=== PATIENT | female | born 1950 | race Caucasian/White ===

== ENCOUNTER 2020-06-11 07:39 | Emergency (ER) | payer MEDICARE, OTHER, SELFPAY ==
[2020-06-11 08:22] VITALS: BP 126/74; PULSE 94; RESP 16; TEMP 37.2; O2SAT 94; BMI 26.2
--- NOTE | 2020-06-11 08:48 | DI.RAD.S_ITS ---
PROCEDURE: XR CHEST 2V INDICATIONS: +COvid TECHNIQUE: 2 views of the chest were acquired. COMPARISON: None. FINDINGS: Surgical changes and devices: None. Lungs and pleura: Mild diffuse patchy opacities are present, technically age indeterminate in the absence of prior studies.. No pleural effusions or pneumothorax. Mediastinum: Mediastinal contours are normal. Heart size is normal. Bones and chest wall: No suspicious bony abnormalities. Soft tissues appear unremarkable. IMPRESSION: No definite focal consolidation. Diffuse mild patchy opacities which are technically age indeterminate without prior studies. This statistically represents scarring/atelectasis although technically cannot entirely exclude low-grade atypical/viral pneumonia. If there is persistent clinical diagnostic uncertainty, continued surveillance with short interval chest radiographs after treatment is recommended. Dictated by: Elmo Hayes M.D. on 06/11/2020 at 9:31 Approved by: Elmo Hayes M.D. on 06/11/2020 at 10:44
[2020-06-11 08:49] LABS: COVID19 -Nasal RAPID POSITIVE (Negative)
--- NOTE | 2020-06-11 09:09 | ED_ITS ---
HPI - URI/Sore Throat General Chief Complaint: Upper Respiratory Symptoms Stated Complaint: POSS COVID SYMPTOMS 4 X DAYS Time Seen by Provider: 06/11/20 07:57 Source: patient Mode of arrival: Ambulatory Limitations: no limitations History of Present Illness HPI Narrative: Patient is a 69-year-old female with no known medical history presenting today with her both of them are extremely fatigued. She says that she literally has no energy. She continues to maintain her taste and smell. She says they have not had any contact with COVID-19 they have not had any traveling. She has a nonproductive cough but is occasionally coughing up some phlegm. She denies any significant shortness of breath MD Complaint: cough Relieving factors: nothing Exacerbating factors: nothing Related Data Home Medications Medication Instructions Recorded Confirmed No Known Home Medications 07/24/19 07/24/19 Previous Rx's Medication Instructions Recorded amoxicillin 875 mg-potassium 1 tab PO BID #20 tab 07/24/19 clavulanate 125 mg tablet benzonatate 100 mg capsule 100 mg PO BID PRN #14 cap 07/24/19 Allergies Allergy/AdvReac Type Severity Reaction Status Date / Time No Known Drug Allergies Allergy Unverified 07/24/19 08:55 Review of Systems Review of Systems ROS Unobtainable: All systems reviewed & are unremarkable except as noted in HPI and below Constitutional Constitutional: Denies body ache(s), Denies chills, Reports fatigue, Denies fever(s) and Denies frequent falls Eyes Eyes: Denies change in vision, Denies eye discharge, Denies irritation and Denies loss of vision Cardiovascular Cardiovascular: Denies chest pain, Denies irregular heart rhythm, Denies lightheadedness, Denies palpitations, Denies dyspnea, Denies dyspnea on exertion and Denies orthopnea Respiratory Respiratory: Denies cough, Denies dyspnea, Denies dyspnea on exertion and Denies wheezing Gastrointestinal Gastrointestinal: Denies abdominal pain, Denies change in bowel habits, Denies diarrhea, Denies nausea and Denies vomiting Musculoskeletal Musculoskeletal: Denies back pain and Denies myalgias Integumentary/Breasts Skin/Breast: Denies pruritus, Denies erythema, Denies rash and Denies wounds Neurologic Neurologic: Denies frequent falls and Denies loss of vision Endocrine Endocrine: Reports fatigue and Denies palpitations Allergic/Immunologic Allergic/Immunologic: Denies wheezing Patient History Medical History Sinusitis Social History Smoking Status: Never smoker Smoking Status: Never smoker alcohol intake frequency: 0-2 drinks per day Substance Use Type: does not use Exam Initial Vital Signs Initial Vital Signs: Vital Signs Temperature 98.9 F 06/11/20 08:22 Pulse Rate 94 H 06/11/20 08:22 Respiratory Rate 16 06/11/20 08:22 Blood Pressure 126/74 06/11/20 08:22 Pulse Oximetry 94 06/11/20 08:22 GENERAL: Well-appearing, well-nourished and in no acute distress. HEENT: Head atraumatic,EOMI, pupils reactive, face symmetric, moist mucous membranes CARDIOVASCULAR: Regular rate and rhythm without murmurs, rubs or gallops. RESPIRATORY: Breath sounds equal bilaterally, no wheezes rales or rhonchi. ABDOMEN: Soft, nontender. Normoactive bowel sounds all 4 quadrants. No guarding or rebound. EXTREMITIES: Normal range of motion, no clubbing or edema. Neurovascularly intact NEUROLOGICAL: Alert and oriented x4.Normal gait and speech. Cranial nerves II through XII grossly intact. SKIN: Warm, dry, no laceration, no petechiae, no rashes or lesions. Course Orders Ordered: ED Orders 06/11/20 08:00 COVID19 Stat 06/11/20 08:48 XR chest 2V Stat Vital Signs Vital signs: Vital Signs - 8 hr 06/11/20 11:15 Pulse Rate 64 Respiratory Rate 16 Pulse Oximetry 95 MDM - URI/Sore Throat Lab Data Labs: Lab Results 06/11/20 Range/Units 08:00 COVID-19 PCR Positive H (Negative) Imaging Data Chest x-ray: Radiologist's Impression: PROCEDURE: XR CHEST 2V INDICATIONS: +COvid TECHNIQUE: 2 views of the chest were acquired. COMPARISON: None. FINDINGS: Surgical changes and devices: None. Lungs and pleura: Mild diffuse patchy opacities are present, technically age indeterminate in the absence of prior studies.. No pleural effusions or pneumothorax. Mediastinum: Mediastinal contours are normal. Heart size is normal. Bones and chest wall: No suspicious bony abnormalities. Soft tissues appear unremarkable. IMPRESSION: No definite focal consolidation. Diffuse mild patchy opacities which are technically age indeterminate without prior studies. This statistically represents scarring/atelectasis although technically cannot entirely exclude low-grade atypical/viral pneumonia. If there is persistent clinical diagnostic uncertainty, continued surveillance with short interval chest radiographs after treatment is recommended. Dictated by: Elmo Hayes M.D. on 06/11/2020 at 9:31 MDM Narrative Medical decision making narrative: Patient is overall feeling well oxygen level is 93-94%. She has no comorbidities. I have discussed with her to buy a home pulse oximeter and monitor her oxygen levels. At this time she understands and agrees. She will return if oxygen levels are decreasing, or her situation is overall D decreased seen. Discharge Plan Departure Patient Disposition: Home Clinical Impression: COVID-19 Instructions: DI for COVID-19 (Suspected or Confirmed ) Activity Restrictions/Additional Instructions: *You have been diagnosed with COVID-19 *What to do: Strongly recommend you purchase a home pulse oximeter to monitor your oxygen level. If your oxygen level starts decreasing lower than 88% need to return to the emergency department. Is also recommended that he start taking supplements such as vitamin D around 7860-9043 units daily *Continue to take medications as directed *Follow up with your primary care provider in 2-3 days *Return to ER if you should have increasing shortness of breath, chest pain, paul evan lips or any new, worsening or concerning symptoms CDC Guidelines for home isolation: - Stay away from others - Limit contact with pets and animals: If you must care for a pet, wash your hands before and after interacting with them - Wear a mask if you are sick - Cover your mouth and nose with a tissue when you cough or sneeze. Dispose of tissues in a lined trash can and wash your hands immediately with soap and water for at least 20 seconds. If soap and water are not available, clean hands with alcohol-based hand interior design assistant that contains at least 60% alcohol. - Clean your hands often with soap and water for at least 20 seconds - Avoid touching your eyes, nose and mouth with unwashed hands - Do not share dishes, drinking glasses, cups, eating utensils, towels, or bedding with other people in your home. After using these items, wash them thoroughly with soap and water or put in the fleece tier. - Clean high-touch surfaces in your isolation area (?sick room? and bathroom) every day; let a caregiver clean and disinfect high-touch surfaces in other areas of the home. Clean the area or item with soap and water or another detergent if it is dirty. Then, use a household disinfectant. Seek medical attention, but call first: - Seek medical care right away if your illness is worsening (for example, if you have difficulty breathing). - Call your doctor before going in: Before going to the doctor?s office or emergency room, call ahead and tell them your symptoms. They will tell you what to do. - If possible, put on a facemask before you enter the building. If you can?t put on a facemask, try to keep a safe distance from other people (at least 6 feet away). This will help protect the people in the office or waiting room. - Follow care instructions from your healthcare provider and local health department: Your local health authorities will give instructions on checking your symptoms and reporting information. Emergency warning signs for COVID-19: - Difficulty breathing or shortness of breath - Persistent pain or pressure in the chest - New confusion or inability to arouse - Bluish lips or face Prescriptions: No Action No Known Home Medications RF: 0 amoxicillin-pot clavulanate [Augmentin] 875-125 mg tablet 1 tab PO BID Qty: 20 RF: 0 benzonatate [Tessalon Perles] 100 mg capsule 100 mg PO BID PRN (Reason: cough) Qty: 14 RF: 0 Referrals: Theresa Smith MD [Primary Care Provider] -
[2020-06-11 11:15] VITALS: PULSE 64; RESP 16; O2SAT 95
== END 2020-06-11 11:32 | disposition home or self-care (01) ==
PROVIDERS: Emergency Provider Emergency Medicine; PCP Internal Medicine
DX: U07.1 COVID-19 (principal)
CPT/HCPCS: 71046; 87635; 99281; 99283

== ENCOUNTER 2020-06-13 08:38 | Emergency (ER) | payer MEDICARE, OTHER, SELFPAY ==
[2020-06-13 08:48] VITALS: BP 143/78; PULSE 86; RESP 18; TEMP 37.3; O2SAT 96; BMI 26.2
--- NOTE | 2020-06-13 09:12 | DI.RAD.S_ITS ---
PROCEDURE: XR CHEST 1V INDICATIONS: covid TECHNIQUE: One view of the chest was acquired. COMPARISON: [facility], CR, XR CHEST 2V, 06/11/2020, 9:08. FINDINGS: Surgical changes and devices: None. Lungs and pleura: Subtle opacity is seen in bilateral mid to lower lung uribe concerning for atypical pneumonia. No pleural effusions or pneumothorax. Mediastinum: Mediastinal contours appear normal. Heart size is normal. Bones and chest wall: No suspicious bony lesions. Overlying soft tissues appear unremarkable. IMPRESSION: Ill-defined subtle opacities seen scattered in bilateral mid to lower lung uribe concerning for atypical pneumonia. No pleural effusion or pneumothorax. Dictated by: Taco Owens M.D. on 06/13/2020 at 9:59 Approved by: Taco Owens M.D. on 06/13/2020 at 9:59
[2020-06-13 09:37] LABS: Add Manual Diff / Slide Review NO; Basophils Absolute Auto 0 /uL (0-100); Basophils Percent Auto 0.7 % (0-2); Eosinophils Absolute Auto 0 /uL (0-450); Eosinophils Percent Auto 0.1 % (2-4); Hematocrit 39.1 % (36-46); Hemoglobin 13.4 g/dL (12.0-16.0); Lymphocytes Absolute Auto 800 /uL (1100-4500); Lymphocytes Percent Auto 19.7 % (25-40); Mean Corpuscular HGB Conc 34.3 % (30-36); Mean Corpuscular Hemoglobin 31.7 PG (26-34); Mean Corpuscular Volume 92.4 fL (80-100); Monocytes Absolute Auto 400 /uL (0-900); Monocytes Percent Auto 10.8 % (3-14); Neutrophils Absolute Auto 2700 /uL (1500-7000); Neutrophils Percent Auto 68.7 % (50-75); Platelet Count 185 X10^3/uL (150-400); Red Blood Cell Count 4.23 X10^6/uL (4.0-5.2); Red Cell Distribution Width 13.4 % (11.6-14.8); White Blood Cell Count 3.9 X10^3/uL (4.5-11.0)
[2020-06-13 09:46] LABS: D Dimer 270 ng/mL (<230)
[2020-06-13 09:49] LABS: Lactate (Lactic Acid) 0.6 mmol/L (0.7-2.1)
[2020-06-13 09:52] LABS: Lactate Dehydrogenase 517 U/L (313-618)
[2020-06-13 09:55] LABS: Alanine Aminotransferase 25 IU/L (<35); Albumin 3.7 g/dL (3.5-5.0); Albumin Globulin Ratio 1.2 (1.0-2.8); Alkaline Phosphatase 94 U/L (38-126); Aspartate Aminotransferase 36 IU/L (14-36); BUN Creatinine Ratio 25.6 (6-22); Bilirubin Total 0.3 mg/dL (0.2-1.3); Blood Urea Nitrogen 20 mg/dL (7-17); C-Reactive Protein Quant 3.8 mg/dL (<1.0); Calcium 8.2 mg/dL (8.4-10.2); Carbon Dioxide 23 mmol/L (22-32); Chloride 103 mmol/L (98-107); Creatine Kinase 71 U/L (30-135); Estimated Glomerular Filt Rate > 60.0 mL/min (>60); Globulin 3.2 g/dL (1.7-4.1); Glucose 102 mg/dL (80-110); HEMOLYSIS < 15 (0-50); Potassium 3.6 mmol/L (3.4-5.1); Sodium 134 mmol/L (137-145); Total Protein 6.9 g/dL (6.3-8.2)
[2020-06-13 10:01] LABS: NT-proBNP (BNP-Adult 18+) 84 pg/mL (<125)
[2020-06-13 10:03] LABS: Troponin I < 0.012 ng/mL (0.01-0.034)
[2020-06-13 10:05] LABS: Procalcitonin 0.12 ng/mL (<0.5)
[2020-06-13 10:11] VITALS: BP 136/69; PULSE 74; RESP 18; O2SAT 94
[2020-06-13 10:26] LABS: Ferritin 201 ng/mL (11-264)
--- NOTE | 2020-06-13 10:50 | ED.SOB ---
HPI - SOB/Dyspnea General Chief Complaint: Shortness of Breath/Dyspnea Stated Complaint: cornoa virus positive Time Seen by Provider: 06/13/20 08:43 Source: patient Mode of arrival: Ambulatory Limitations: no limitations History of Present Illness HPI Narrative: Patient is 69-year-old female who was diagnosed with COVID 2 days ago. She states she and her both have actually been feeling better they been eating and drinking. This morning she felt like she was cold running through her body she felt crampy and nauseous and had an episode of diarrhea. She then checked her oxygen level and it was 90%. She has no difficulty breathing. She denies any chest pain she said she just does not feel well. She currently has an oxygen of 96 Related Data Previous Rx's Medication Instructions Recorded amoxicillin 875 mg-potassium 1 tab PO BID #20 tab 07/24/19 clavulanate 125 mg tablet benzonatate 100 mg capsule 100 mg PO BID PRN #14 cap 07/24/19 ondansetron 4 mg PO Q8H PRN #10 tab 06/13/20 Allergies Allergy/AdvReac Type Severity Reaction Status Date / Time No Known Drug Allergies Allergy Verified 06/13/20 08:47 Review of Systems Review of Systems ROS Unobtainable: All systems reviewed & are unremarkable except as noted in HPI and below Constitutional Constitutional: Reports chills, Denies fever(s), Denies lethargy and Denies weakness Eyes Eyes: Denies change in vision, Denies eye discharge, Denies irritation and Denies loss of vision ENT Ears, Nose, Mouth, and Throat: Denies change in voice, Denies neck pain and Denies sore throat Cardiovascular Cardiovascular: Denies chest pain, Denies irregular heart rhythm, Reports lightheadedness, Denies palpitations and Denies orthopnea Respiratory Respiratory: Reports as per HPI Gastrointestinal Gastrointestinal: Denies abdominal pain, Denies change in bowel habits, Denies diarrhea, Reports nausea and Reports vomiting Musculoskeletal Musculoskeletal: Denies back pain and Denies neck pain Integumentary/Breasts Skin/Breast: Denies pruritus, Denies erythema, Denies rash and Denies wounds Neurologic Neurologic: Denies loss of vision and Denies weakness Endocrine Endocrine: Denies palpitations Patient History Medical History Sinusitis Social History Smoking Status: Never smoker Smoking Status: Never smoker alcohol intake frequency: 0-2 drinks per day Substance Use Type: does not use Exam Initial Vital Signs Initial Vital Signs: Vital Signs Temperature 99.2 F 06/13/20 08:48 Pulse Rate 86 06/13/20 08:48 Respiratory Rate 18 06/13/20 08:48 Blood Pressure 143/78 H 06/13/20 08:48 Pulse Oximetry 96 06/13/20 08:48 GENERAL: [Well-appearing, well-nourished] and in [no acute] distress. HEENT: Head atraumatic,EOMI, pupils reactive, face symmetric, [moist] mucous membranes CARDIOVASCULAR: Regular rate and rhythm without murmurs, rubs or gallops. RESPIRATORY: Breath sounds equal bilaterally, no wheezes rales or rhonchi. ABDOMEN: Soft, nontender. Normoactive bowel sounds all 4 quadrants. No guarding or rebound. EXTREMITIES: Normal range of motion, no clubbing or edema. Neurovascularly intact NEUROLOGICAL: Alert and oriented x4.Normal gait and speech. SKIN: Warm, dry, no laceration, no petechiae, no rashes or lesions. Course Orders Ordered: Discontinued Medications Sodium Chloride (Normal Saline 0.9%) 500 mls @ 1,000 mls/hr IV BOLUS ONE Stop: 06/13/20 11:28 Last Infusion: 06/13/20 11:45 Dose: 0 mls/hr Documented by: Admin: 06/13/20 11:10 Dose: 1,000 mls/hr Documented by: JULISSA Ondansetron HCl (Ondansetron 4 Mg/2 Ml Inj) 4 mg IV NOW ONE Stop: 06/13/20 11:00 Last Admin: 06/13/20 11:09 Dose: 4 mg Documented by: JULISSA Vital Signs Vital signs: Vital Signs - 8 hr 06/13/20 12:09 Pulse Rate 68 Respiratory Rate 18 Blood Pressure 115/75 Pulse Oximetry 94 MDM - SOB/Dyspnea Lab Data Attestation: I reviewed the patient's lab results. Result diagrams: 06/13/20 09:20 06/13/20 09:20 Labs: Lab Results 12/31/20 12/31/20 12/31/20 Range/Units 09:20 09:20 09:20 WBC 3.9 L (4.5-11.0) X10^3/uL RBC 4.23 (4.0-5.2) X10^6/uL Hgb 13.4 (12.0-16.0) g/dL Hct 39.1 (36-46) % MCV 92.4 (80-100) fL MCH 31.7 (26-34) PG MCHC 34.3 (30-36) % RDW 13.4 (11.6-14.8) % Plt Count 185 (150-400) X10^3/uL Neut % (Auto) 68.7 (50-75) % Lymph % (Auto) 19.7 L (25-40) % Glades % (Auto) 10.8 (3-14) % Eos % (Auto) 0.1 L (2-4) % Baso % (Auto) 0.7 (0-2) % Neut # (Auto) 2700 (2347-7475) /uL Lymph # (Auto) 800 L (6480-1175) /uL Glades # (Auto) 400 (0-900) /uL Eos # (Auto) 0 (0-450) /uL Baso # (Auto) 0 (0-100) /uL D-Dimer 270 H (<230) ng/mL Sodium 134 L (137-145) mmol/L Potassium 3.6 (3.4-5.1) mmol/L Chloride 103 (98-107) mmol/L Carbon Dioxide 23 (22-32) mmol/L BUN 20 H (7-17) mg/dL Creatinine 0.78 (0.52-1.04) mg/dL Estimated GFR > 60.0 (>60) mL/min BUN/Creatinine Ratio 25.6 H (6-22) Glucose 102 (80-110) mg/dL Lactate (0.7-2.1) mmol/L Calcium 8.2 L (8.4-10.2) mg/dL Ferritin 201 (11-264) ng/mL Total Bilirubin 0.3 (0.2-1.3) mg/dL AST 36 (14-36) IU/L ALT 25 (<35) IU/L Alkaline Phosphatase 94 (38-126) U/L Lactate Dehydrogenase (313-618) U/L Total Creatine Kinase 71 (30-135) U/L CK-MB (CK-2) TNP CK-MB (CK-2) Rel Index TNP Troponin I < 0.012 (0.01-0.034) ng/mL C-Reactive Protein 3.8 H (<1.0) mg/dL NT-Pro-B Natriuret Pep (<125) pg/mL Total Protein 6.9 (6.3-8.2) g/dL Albumin 3.7 (3.5-5.0) g/dL Globulin 3.2 (1.7-4.1) g/dL Albumin/Globulin Ratio 1.2 (1.0-2.8) Procalcitonin (<0.5) ng/mL 06/13/20 06/13/20 06/13/20 Range/Units 09:20 09:20 09:20 WBC (4.5-11.0) X10^3/uL RBC (4.0-5.2) X10^6/uL Hgb (12.0-16.0) g/dL Hct (36-46) % MCV (80-100) fL MCH (26-34) PG MCHC (30-36) % RDW (11.6-14.8) % Plt Count (150-400) X10^3/uL Neut % (Auto) (50-75) % Lymph % (Auto) (25-40) % Glades % (Auto) (3-14) % Eos % (Auto) (2-4) % Baso % (Auto) (0-2) % Neut # (Auto) (6966-9443) /uL Lymph # (Auto) (3300-6329) /uL Glades # (Auto) (0-900) /uL Eos # (Auto) (0-450) /uL Baso # (Auto) (0-100) /uL D-Dimer (<230) ng/mL Sodium (137-145) mmol/L Potassium (3.4-5.1) mmol/L Chloride (98-107) mmol/L Carbon Dioxide (22-32) mmol/L BUN (7-17) mg/dL Creatinine (0.52-1.04) mg/dL Estimated GFR (>60) mL/min BUN/Creatinine Ratio (6-22) Glucose (80-110) mg/dL Lactate 0.6 L (0.7-2.1) mmol/L Calcium (8.4-10.2) mg/dL Ferritin (11-264) ng/mL Total Bilirubin (0.2-1.3) mg/dL AST (14-36) IU/L ALT (<35) IU/L Alkaline Phosphatase (38-126) U/L Lactate Dehydrogenase 517 (313-618) U/L Total Creatine Kinase (30-135) U/L CK-MB (CK-2) CK-MB (CK-2) Rel Index Troponin I (0.01-0.034) ng/mL C-Reactive Protein (<1.0) mg/dL NT-Pro-B Natriuret Pep 84 (<125) pg/mL Total Protein (6.3-8.2) g/dL Albumin (3.5-5.0) g/dL Globulin (1.7-4.1) g/dL Albumin/Globulin Ratio (1.0-2.8) Procalcitonin 0.12 (<0.5) ng/mL Imaging Data Chest x-ray: Radiologist's Impression: PROCEDURE: XR CHEST 1V INDICATIONS: covid TECHNIQUE: One view of the chest was acquired. COMPARISON: [facility], , XR CHEST 2V, 06/11/2020, 9:08. FINDINGS: Surgical changes and devices: None. Lungs and pleura: Subtle opacity is seen in bilateral mid to lower lung uribe concerning for atypical pneumonia. No pleural effusions or pneumothorax. Mediastinum: Mediastinal contours appear normal. Heart size is normal. Bones and chest wall: No suspicious bony lesions. Overlying soft tissues appear unremarkable. IMPRESSION: Ill-defined subtle opacities seen scattered in bilateral mid to lower lung uribe concerning for atypical pneumonia. No pleural effusion or pneumothorax. Dictated by: Taco Owens M.D. on 06/13/2020 at 9:59 Approved by: Taco Owens M.D. on 06/13/2020 at 9:59 [facility] Narrative Medical decision making narrative: Patient's oxygen remains well above 90% even with movement in the emergency department. She does have some chest x-ray findings but she had those a couple days ago. Her overall health does seem to be improving she feels better. She describes coldness going through her body at which point she checked her oxygen level briefly and it was 90% and she came to the emergency department. We discussed for a long time what to do for the oxygen level is low and the criteria to return to the emergency department. They are on day 7 or 8 in at it should be peaking soon and she should start feeling better. At this time without needing oxygen she does not meet admission criteria Discharge Plan Departure Patient Disposition: Home Clinical Impression: COVID-19 Instructions: DI for COVID-19 (Suspected or Confirmed ) Activity Restrictions/Additional Instructions: *You have been diagnosed with COVID-19 *What to do: At this time you do not require hospital admission. You do not require hospital admission typically in till your oxygen level decreases to 88%. There is also unfortunately no medication to make you feel better. Please continue to lay on her stomach if you are having any difficulty breathing. Increase food and fluid intake as tolerated. Rest. Take Tylenol as needed for fever *Continue to take medications as directed Tylenol 650 mg every 4-6 hours if needed for pain or fever Zofran 4 mg every 8 hours if needed for nausea or vomiting--> SENT TO [facility] IN [place] *Follow up with your primary care provider in 2-3 days *Return to ER if you should have increasing shortness of breath, oxygen levels 88% or less, decreased intake, passing out or any new, worsening or concerning symptoms Prescriptions: New ondansetron 4 mg tablet,disintegrating 4 mg PO Q8H PRN (Reason: nausea and vomiting) Qty: 10 RF: 0 No Action amoxicillin-pot clavulanate [Augmentin] 875-125 mg tablet 1 tab PO BID Qty: 20 RF: 0 benzonatate [Tessalon Perles] 100 mg capsule 100 mg PO BID PRN (Reason: cough) Qty: 14 RF: 0 Referrals: Theresa Smith MD [Primary Care Provider] -
[2020-06-13] MEDS: ONDANSETRON 4 MG/2 ML INJ IV (11:09)
[2020-06-13] MEDS: SODIUM CHLORIDE 0.9% 500 ML 1000 ML IV (11:10)
--- NOTE | 2020-06-13 12:08 | PC.NURSE ---
pt c/o 1 episode of diarrhea this AM which has since resolved
[2020-06-13 12:09] VITALS: BP 115/75; PULSE 68; RESP 18; O2SAT 94
== END 2020-06-13 12:10 | disposition home or self-care (01) ==
PROVIDERS: Emergency Provider Emergency Medicine; PCP Internal Medicine
DX: U07.1 COVID-19 (principal)
CPT/HCPCS: 71045; 80053; 82550; 82728; 83605; 83615; 83880; 84145; 84484; 85025; 85379; 86140; 99281; J2405

== ENCOUNTER 2020-06-16 12:54 | Inpatient (IN) | payer MEDICARE, OTHER, SELFPAY ==
[2020-06-16] VITALS (17 sets, daily range): BP systolic 113–134; BP diastolic 55–75; PULSE 67–90; RESP 16–26; TEMP 36.5–38.3; O2SAT 83–96; BMI 28.3
--- NOTE | 2020-06-16 13:27 | DI.RAD.S_ITS ---
PROCEDURE: XR CHEST 1V INDICATIONS: flu-like symptoms TECHNIQUE: One view of the chest was acquired. COMPARISON: [facility], CR, XR CHEST 1V, 06/13/2020, 9:30. FINDINGS: Surgical changes and devices: None. Lungs and pleura: Low lung volumes are noted. This causes a crowded appearance to the lung markings and limits evaluation. Patchy bilateral interstitial type infiltrates are seen. No large pneumothorax or large pleural effusions are seen. Mediastinum: Mediastinal contours appear normal. Heart size is normal. Bones and chest wall: No suspicious bony lesions. Age-appropriate bony degenerative changes are seen. Mild dextroconvex scoliotic curvature is seen. Overlying soft tissues appear unremarkable. IMPRESSION: Bilateral interstitial infiltrates are seen. Please consider COVID pneumonia. Dictated by: Fredis Mccarty M.D. on 06/16/2020 at 12:44 Approved by: Fredis Mccarty M.D. on 06/16/2020 at 12:45
[2020-06-16] MEDS: SODIUM CHLORIDE 0.9% 500 ML 1000 ML IV (13:30)
--- NOTE | 2020-06-16 13:31 | ED_ITS ---
HPI - SOB/Dyspnea <[facility] - Last Filed: 06/16/20 15:12> General Chief Complaint: Shortness of Breath/Dyspnea Stated Complaint: +Covid, sob Time Seen by Provider: 06/16/20 13:03 Source: patient Mode of arrival: Ambulatory Limitations: no limitations History of Present Illness HPI Narrative: This is a 69-year-old female, nonsmoker, who has no contributory medical history but tested positive for COVID on June 11, 2020 presents to ED with chief complain of short of breath and feeling fatigued. Patient denies chest pain, headache or diarrhea. Home O2 monitor as low as 78% and decided to return to ED with her who had tested positive as well. Patient has been nauseated and when she used Zofran it causes abdominal cramping discomfort. Patient was in ED on June 13 and discharged to home with Zofran at that time for nausea and abdominal cramping. Patient reports occasionally she has productive cough with thin mucus. Patient reports her symptoms started 9 days ago without known exposure to COVID with and loss of taste and smell, fatigue, and nonproductive cough. Patient denies recent travel. PCP Dr. Smith. Related Data Home Medications Medication Instructions Recorded Confirmed albuterol PRN 06/16/20 Allergies Allergy/AdvReac Type Severity Reaction Status Date / Time codeine Allergy Verified 06/16/20 13:33 Review of Systems <[facility] - Last Filed: 06/16/20 15:12> Review of Systems Narrative: General: See HPI HEENT: Denies sinus pain, ear pain, sore throat, difficulty swallowing, dizziness. Respiratory: See HPI Cardiovascular: Denies chest pain, palpitations, orthopnea, edema. Gastrointestinal: Denies (+) nausea, vomiting, (+) abdominal pain, diarrhea, constipation, melena. : Denies dysuria, frequency, incontinence, hematuria, urinary retention. Musculoskeletal: Denies weakness, joint pain or bony pain. Skin: Denies rash, skin lesions, or other. Neurologic: Denies weakness, headache, numbness, change in speech, confusion, seizures, incoordination. Psychiatric: No concerning psychosocial issues. 12-point review of systems is negative except for those stated above. Patient History <[facility] Last Filed: 06/16/20 15:12> Medical History Sinusitis Social History household members: spouse Smoking Status: Never smoker Smoking Status: Never smoker alcohol intake frequency: 0-2 drinks per day Substance Use Type: does not use Exam <DARINEL Corona - Last Filed: 06/16/20 15:12> Narrative Exam Narrative: GEN: Alert, oriented x 3, ill appearing and well-nourished, and moderate respiratory distress with mild tachypnea. Head: Normal cephalic, atraumatic. No scalp or temporal tenderness, palpable mass or rash. EYES: Pupils are equal, round, and reactive to light and accommodation. Extraocular muscles are intact bilaterally. There is no subconjunctival hemorrhage, exudate and sclera non-icteric. ENT: Hearing grossly intact. Nose without bleeding, purulent discharge or deviation. Mucous membrane dry, no mucosal lesion. Throat without erythema, tonsillar hypertrophy or exudate. Uvula in midline, airway patent. Neck: Trachea in midline. No JVD, non-tender without lymphadenopathy. No masses or thyroid megaly. Supple, non-tender and no meningeal signs. CARDIAC: Normal regular rate and rhythm without murmurs, gallops, or rubs. No chest wall tenderness. No peripheral edema, cyanosis or pallor. Capillary refill is less than 2 seconds. RESPIRATORY: Lungs mild wheezing in lower lobes. Frequent nonproductive cough. No rales, or rhonchi. No stridor, increase respiratory rate no accessary muscle used. Room oxygenation at 84% upon arrival. ABD: Abdomen soft, nontender and non-distended. No guarding or rebound tend erness to palpate. Bowel sounds are normal in all 4 quadrants. There is no palpable masses or organomegaly. EXT: Full painless ROM of all extremities with no loss of sensation, strength, effusion or edema. SKIN: Warm, dry. Pale Color for patient. No erythema, lesions or rash over visible areas. BACK: Nontender without deformity or crepitance. No flank tenderness. NEUROLOGICAL: Alert and oriented to place, time and person. Sensation and motor function intact bilaterally. No facial droops, dysphasia. PSYCHIATRIC: Good judgement and reason, without hallucinations, abnormal affect or abnormal behaviors during the examination. Patient is not suicidal. Initial Vital Signs Initial Vital Signs: Vital Signs Temperature 101.0 F H 06/16/20 13:07 Pulse Rate 87 06/16/20 13:07 Respiratory Rate 22 06/16/20 13:07 Blood Pressure 134/63 06/16/20 13:07 Pulse Oximetry 83 L 06/16/20 13:07 <Amaury Sterling DO - Last Filed: 06/16/20 17:23> Initial Vital Signs Initial Vital Signs: Vital Signs Temperature 101.0 F H 06/16/20 13:07 Pulse Rate 87 06/16/20 13:07 Respiratory Rate 22 06/16/20 13:07 Blood Pressure 134/63 06/16/20 13:07 Pulse Oximetry 83 L 06/16/20 13:07 Scores <DARINEL Corona - Last Filed: 06/16/20 15:12> GCS Isaac coma scale eye opening: Spontaneous Isaac coma scale verbal response: Orientated [place] coma scale motor response: Obey commands Isaac coma scale total score: 15 qSOFA Altered Mental Status (GCS <15): No Respiratory rate greater than/equal to 22: Yes Systolic blood pressure less than or equal to 100: No qSOFA Total: 1 0-1 Not High Risk 1-3 High risk Course <DARINEL Corona - Last Filed: 06/16/20 15:12> Orders Ordered: ED Orders 06/16/20 13:20 C-Reactive Protein Quant Stat Complete Blood Count AUTO DIFF Stat Comprehensive Metabolic Panel Stat D Dimer Stat Ferritin Stat Lactate (Lactic Acid) Stat Lactate Dehydrogenase Stat NT-proBNP (BNP-Adult 18+) Stat Procalcitonin Stat Respiratory Panel (Film Array) Stat Troponin & CK Cardiac Panel Stat 06/16/20 13:26 EKG-12 Lead Stat 06/16/20 13:27 XR chest 1V Stat 06/16/20 13:34 Arterial Blood Gas Stat 06/16/20 15:00 Blood Culture Stat Discontinued Medications Acetaminophen (Acetaminophen 325 Mg Tablet) 650 mg PO NOW ONE Stop: 06/16/20 13:32 Last Admin: 06/16/20 13:52 Dose: 650 mg Documented by: TIMOTHY Albuterol (Albuterol Hfa Mdi 60 Puff/8 Gm Inhaler) 2 puff INH NOW ONE Stop: 06/16/20 13:14 Last Admin: 06/16/20 13:59 Dose: 2 puff Documented by: ERNESTINA Dexamethasone (Dexamethasone 10 Mg/Ml Vial) 6 mg IV NOW ONE Stop: 06/16/20 13:30 Last Admin: 06/16/20 13:50 Dose: 6 mg Documented by: TIMOTHY Enoxaparin Sodium (Enoxaparin 40 Mg/0.4 Ml Syringe) 40 mg SUBCUT NOW ONE Stop: 06/16/20 15:02 Last Admin: 06/16/20 15:12 Dose: 40 mg Documented by: ALE Sodium Chloride (Normal Saline 0.9%) 500 mls @ 1,000 mls/hr IV BOLUS ONE Stop: 06/16/20 13:55 Last Infusion: 06/16/20 14:06 Dose: 0 mls/hr Documented by: Admin: 06/16/20 13:30 Dose: 1,000 mls/hr Documented by: TIMOTHY Remdesivir 200 mg/ Sodium (Chloride) 250 mls @ 250 mls/hr IV NOW ONE Stop: 06/16/20 13:30 Last Infusion: 06/16/20 15:19 Dose: 0 mls/hr Documented by: Admin: 06/16/20 13:52 Dose: 250 mls/hr Documented by: TIMOTHY Reevaluation(s) Reevaluation #1: Patient reports breathing and nausea improved and feeling much better at this time. Oxygen and albuterol inhaler helping with the breathing. O2 saturation on 4 L nasal cannula on 95% and respiration rate 26 per minute. Discussed pending admission to hospital due to COVID pneumonia and hypoxia with IV medications, o2 therapy and monitor. Time: 14:36 Consultations Consultation #1: Dr. Martinez kindly accepted the patient for admission for Covid 19, bilateral interstitial pneumonia, hypoxia for treatment with o2, IV steroid and Remdesivir medication. Time: 15:09 Vital Signs Vital signs: Vital Signs - 8 hr 06/16/20 13:07 06/16/20 13:10 06/16/20 13:30 Temperature 101.0 F H Pulse Rate 87 90 86 Respiratory Rate 22 23 Blood Pressure 134/63 134/63 Pulse Oximetry 83 L 92 94 06/16/20 13:52 06/16/20 13:59 06/16/20 14:00 Temperature 101 F H Pulse Rate 82 85 Respiratory Rate 20 21 Blood Pressure Pulse Oximetry 94 95 06/16/20 14:25 06/16/20 14:30 06/16/20 15:00 Temperature Pulse Rate 82 84 79 Respiratory Rate 20 23 20 Blood Pressure 121/59 L Pulse Oximetry 95 95 96 <Amaury Sterling, - Last Filed: 06/16/20 17:23> Orders Ordered: ED Orders 06/16/20 13:20 C-Reactive Protein Quant Stat Complete Blood Count AUTO DIFF Stat Comprehensive Metabolic Panel Stat D Dimer Stat Ferritin Stat Lactate (Lactic Acid) Stat Lactate Dehydrogenase Stat NT-proBNP (BNP-Adult 18+) Stat Procalcitonin Stat Respiratory Panel (Film Array) Stat Troponin & CK Cardiac Panel Stat 06/16/20 13:26 EKG-12 Lead Stat 06/16/20 13:27 XR chest 1V Stat 06/16/20 13:34 Arterial Blood Gas Stat 06/16/20 15:00 Blood Culture Stat Discontinued Medications Acetaminophen (Acetaminophen 325 Mg Tablet) 650 mg PO NOW ONE Stop: 06/16/20 13:32 Last Admin: 06/16/20 13:52 Dose: 650 mg Documented by: TIMOTHY Albuterol (Albuterol Hfa Mdi 60 Puff/8 Gm Inhaler) 2 puff INH NOW ONE Stop: 06/16/20 13:14 Last Admin: 06/16/20 13:59 Dose: 2 puff Documented by: ERNESTINA Dexamethasone (Dexamethasone 10 Mg/Ml Vial) 6 mg IV NOW ONE Stop: 06/16/20 13:30 Last Admin: 06/16/20 13:50 Dose: 6 mg Documented by: TIMOTHY Enoxaparin Sodium (Enoxaparin 40 Mg/0.4 Ml Syringe) 40 mg SUBCUT NOW ONE Stop: 06/16/20 15:02 Last Admin: 06/16/20 15:12 Dose: 40 mg Documented by: ALE Sodium Chloride (Normal Saline 0.9%) 500 mls @ 1,000 mls/hr IV BOLUS ONE Stop: 06/16/20 13:55 Last Infusion: 06/16/20 14:06 Dose: 0 mls/hr Documented by: LUISARTDELANEY Admin: 06/16/20 13:30 Dose: 1,000 mls/hr Documented by: TIMOTHY Remdesivir 200 mg/ Sodium (Chloride) 250 mls @ 250 mls/hr IV NOW ONE Stop: 06/16/20 13:30 Last Infusion: 06/16/20 15:19 Dose: 0 mls/hr Documented by: Admin: 06/16/20 13:52 Dose: 250 mls/hr Documented by: TIMOTHY Vital Signs Vital signs: Vital Signs - 8 hr 06/16/20 13:07 06/16/20 13:10 06/16/20 13:30 Temperature 101.0 F H Pulse Rate 87 90 86 Respiratory Rate 22 23 Blood Pressure 134/63 134/63 Pulse Oximetry 83 L 92 94 06/16/20 13:52 06/16/20 13:59 06/16/20 14:00 Temperature 101 F H Pulse Rate 82 85 Respiratory Rate 20 21 Blood Pressure Pulse Oximetry 94 95 06/16/20 14:25 06/16/20 14:30 06/16/20 15:00 Temperature Pulse Rate 82 84 79 Respiratory Rate 20 23 20 Blood Pressure 121/59 L Pulse Oximetry 95 95 96 MDM - SOB/Dyspnea <JOSELINE CoronaP - Last Filed: 06/16/20 15:12> Differential Diagnosis Differential diagnosis: Likely pulmonary embolism and other (Covid 19, pneumonia, ) Medical Records Attestation: I reviewed the patient's medical records. Lab Data Result diagrams: 06/16/20 13:20 06/16/20 13:20 Labs: Lab Results 06/16/20 06/16/20 06/16/20 Range/Units 13:20 13:20 13:20 WBC 6.4 (4.5-11.0) X10^3/uL RBC 4.33 (4.0-5.2) X10^6/uL Hgb 13.6 (12.0-16.0) g/dL Hct 39.6 (36-46) % MCV 91.5 (80-100) fL MCH 31.5 (26-34) PG MCHC 34.5 (30-36) % RDW 13.2 (11.6-14.8) % Plt Count 215 (150-400) X10^3/uL Neut % (Auto) 84.0 H (50-75) % Lymph % (Auto) 8.0 L (25-40) % [place] % (Auto) 7.8 (3-14) % Eos % (Auto) 0.0 L (2-4) % Baso % (Auto) 0.2 (0-2) % Neut # (Auto) 5400 (3273-3981) /uL Lymph # (Auto) 500 L (4912-3801) /uL [place] # (Auto) 500 (0-900) /uL Eos # (Auto) 0 (0-450) /uL Baso # (Auto) 0 (0-100) /uL D-Dimer 382 H (<230) ng/mL ABG pH (7.35-7.45) ABG pCO2 (35-45) mmHg ABG pO2 (80-100) mmHg ABG HCO3 (22-26) mmol/L ABG Total CO2 (21-31) mmol/L ABG O2 Saturation (95-100) % ABG Base Excess (-2-2) mmol/L FiO2 Sodium (137-145) mmol/L Potassium (3.4-5.1) mmol/L Chloride (98-107) mmol/L Carbon Dioxide (22-32) mmol/L BUN (7-17) mg/dL Creatinine (0.52-1.04) mg/dL Estimated GFR (>60) mL/min BUN/Creatinine Ratio (6-22) Glucose (80-110) mg/dL Lactate (0.7-2.1) mmol/L Calcium (8.4-10.2) mg/dL Ferritin (11-264) ng/mL Total Bilirubin (0.2-1.3) mg/dL AST (14-36) IU/L ALT (<35) IU/L Alkaline Phosphatase (38-126) U/L Lactate Dehydrogenase (313-618) U/L Total Creatine Kinase (30-135) U/L CK-MB (CK-2) CK-MB (CK-2) Rel Index Troponin I (0.01-0.034) ng/mL C-Reactive Protein (<1.0) mg/dL NT-Pro-B Natriuret Pep (<125) pg/mL Total Protein (6.3-8.2) g/dL Albumin (3.5-5.0) g/dL Globulin (1.7-4.1) g/dL Albumin/Globulin Ratio (1.0-2.8) Procalcitonin < 0.05 (<0.5) ng/mL Chlamy pneumoniae PCR (Not Detect) Adenovirus (PCR) (Not Detect) B.parapertussis DNA PCR (Not Detect) Coronavirus OC43 (PCR) (Not Detect) Coronavirus HKU1 (PCR) (Not Detect) Coronavirus 229E (PCR) (Not Detect) SARS-CoV-2 (PCR) (Not Detecte) Coronavirus NL63 (PCR) (Not Detect) Human Metapneumovir PCR (Not Detect) Influenza Type A (PCR) (Not Detect) Influenza Type B (PCR) (Not Detect) M. pneumoniae (PCR) (Not Detect) Parainfluenza 1 (PCR) (Not Detect) Parainfluenza 2 (PCR) (Not Detect) Parainfluenza 3 (PCR) (Not Detect) Parainfluenza 4 (PCR) (Not Detect) RSV (PCR) (Not Detect) Entero/Rhino (PCR) (Not Detect) 06/16/20 06/16/20 06/16/20 Range/Units 13:20 13:20 13:20 WBC (4.5-11.0) X10^3/uL RBC (4.0-5.2) X10^6/uL Hgb (12.0-16.0) g/dL Hct (36-46) % MCV (80-100) fL MCH (26-34) PG MCHC (30-36) % RDW (11.6-14.8) % Plt Count (150-400) X10^3/uL Neut % (Auto) (50-75) % Lymph % (Auto) (25-40) % [place] % (Auto) (3-14) % Eos % (Auto) (2-4) % Baso % (Auto) (0-2) % Neut # (Auto) (0163-2169) /uL Lymph # (Auto) (7786-3987) /uL [place] # (Auto) (0-900) /uL Eos # (Auto) (0-450) /uL Baso # (Auto) (0-100) /uL D-Dimer (<230) ng/mL ABG pH (7.35-7.45) ABG pCO2 (35-45) mmHg ABG pO2 (80-100) mmHg ABG HCO3 (22-26) mmol/L ABG Total CO2 (21-31) mmol/L ABG O2 Saturation (95-100) % ABG Base Excess (-2-2) mmol/L FiO2 Sodium 131 L (137-145) mmol/L Potassium 3.9 (3.4-5.1) mmol/L Chloride 101 (98-107) mmol/L Carbon Dioxide 26 (22-32) mmol/L BUN 18 H (7-17) mg/dL Creatinine 0.78 (0.52-1.04) mg/dL Estimated GFR > 60.0 (>60) mL/min BUN/Creatinine Ratio 23.1 H (6-22) Glucose 109 (80-110) mg/dL Lactate 0.9 (0.7-2.1) mmol/L Calcium 8.8 (8.4-10.2) mg/dL Ferritin 372 H (11-264) ng/mL Total Bilirubin 0.3 (0.2-1.3) mg/dL AST 49 H (14-36) IU/L ALT 33 (<35) IU/L Alkaline Phosphatase 89 (38-126) U/L Lactate Dehydrogenase 747 H D (313-618) U/L Total Creatine Kinase 83 (30-135) U/L CK-MB (CK-2) TNP CK-MB (CK-2) Rel Index TNP Troponin I < 0.012 (0.01-0.034) ng/mL C-Reactive Protein 5.4 H (<1.0) mg/dL NT-Pro-B Natriuret Pep 105 (<125) pg/mL Total Protein 7.1 (6.3-8.2) g/dL Albumin 3.7 (3.5-5.0) g/dL Globulin 3.4 (1.7-4.1) g/dL Albumin/Globulin Ratio 1.1 (1.0-2.8) Procalcitonin (<0.5) ng/mL Chlamy pneumoniae PCR Not detected (Not Detect) Adenovirus (PCR) Not detected (Not Detect) B.parapertussis DNA PCR Not detected (Not Detect) Coronavirus OC43 (PCR) Not detected (Not Detect) Coronavirus HKU1 (PCR) Not detected (Not Detect) Coronavirus 229E (PCR) Not detected (Not Detect) SARS-CoV-2 (PCR) Detected H (Not Detecte) Coronavirus NL63 (PCR) Not detected (Not Detect) Human Metapneumovir PCR Not detected (Not Detect) Influenza Type A (PCR) Not detected (Not Detect) Influenza Type B (PCR) Not detected (Not Detect) M. pneumoniae (PCR) Not detected (Not Detect) Parainfluenza 1 (PCR) Not detected (Not Detect) Parainfluenza 2 (PCR) Not detected (Not Detect) Parainfluenza 3 (PCR) Not detected (Not Detect) Parainfluenza 4 (PCR) Not detected (Not Detect) RSV (PCR) Not detected (Not Detect) Entero/Rhino (PCR) Not detected (Not Detect) 06/16/20 Range/Units 13:34 WBC (4.5-11.0) X10^3/uL RBC (4.0-5.2) X10^6/uL Hgb (12.0-16.0) g/dL Hct (36-46) % MCV (80-100) fL MCH (26-34) PG MCHC (30-36) % RDW (11.6-14.8) % Plt Count (150-400) X10^3/uL Neut % (Auto) (50-75) % Lymph % (Auto) (25-40) % [place] % (Auto) (3-14) % Eos % (Auto) (2-4) % Baso % (Auto) (0-2) % Neut # (Auto) (6183-4611) /uL Lymph # (Auto) (5839-3193) /uL [place] # (Auto) (0-900) /uL Eos # (Auto) (0-450) /uL Baso # (Auto) (0-100) /uL D-Dimer (<230) ng/mL ABG pH 7.49 H (7.35-7.45) ABG pCO2 27.5 L (35-45) mmHg ABG pO2 77 L (80-100) mmHg ABG HCO3 21 L (22-26) mmol/L ABG Total CO2 22 (21-31) mmol/L ABG O2 Saturation 97 (95-100) % ABG Base Excess -2.0 (-2-2) mmol/L FiO2 36 Sodium (137-145) mmol/L Potassium (3.4-5.1) mmol/L Chloride (98-107) mmol/L Carbon Dioxide (22-32) mmol/L BUN (7-17) mg/dL Creatinine (0.52-1.04) mg/dL Estimated GFR (>60) mL/min BUN/Creatinine Ratio (6-22) Glucose (80-110) mg/dL Lactate (0.7-2.1) mmol/L Calcium (8.4-10.2) mg/dL Ferritin (11-264) ng/mL Total Bilirubin (0.2-1.3) mg/dL AST (14-36) IU/L ALT (<35) IU/L Alkaline Phosphatase (38-126) U/L Lactate Dehydrogenase (313-618) U/L Total Creatine Kinase (30-135) U/L CK-MB (CK-2) CK-MB (CK-2) Rel Index Troponin I (0.01-0.034) ng/mL C-Reactive Protein (<1.0) mg/dL NT-Pro-B Natriuret Pep (<125) pg/mL Total Protein (6.3-8.2) g/dL Albumin (3.5-5.0) g/dL Globulin (1.7-4.1) g/dL Albumin/Globulin Ratio (1.0-2.8) Procalcitonin (<0.5) ng/mL Chlamy pneumoniae PCR (Not Detect) Adenovirus (PCR) (Not Detect) B.parapertussis DNA PCR (Not Detect) Coronavirus OC43 (PCR) (Not Detect) Coronavirus HKU1 (PCR) (Not Detect) Coronavirus 229E (PCR) (Not Detect) SARS-CoV-2 (PCR) (Not Detecte) Coronavirus NL63 (PCR) (Not Detect) Human Metapneumovir PCR (Not Detect) Influenza Type A (PCR) (Not Detect) Influenza Type B (PCR) (Not Detect) M. pneumoniae (PCR) (Not Detect) Parainfluenza 1 (PCR) (Not Detect) Parainfluenza 2 (PCR) (Not Detect) Parainfluenza 3 (PCR) (Not Detect) Parainfluenza 4 (PCR) (Not Detect) RSV (PCR) (Not Detect) Entero/Rhino (PCR) (Not Detect) ABG Data ABG results: pH 7.49 pCO2 27.5 pO2 77 HCO3 21 BE -2.0 Attestation: I personally reviewed and interpreted this ABG as follows: Interpretation: Resp alkalosis Imaging Data Chest x-ray: Radiologist's Impression: [address] [id number] ReportSigned Patient: Bonnie Vale MMR#: [id number]: 1950Acct:[id number]/Sex: 69 / FDate of Service: 06/16/20Loc: EDAccession Number: [id number] Procedure: XR chest 1V Ordering Provider: Andres Landry PROCEDURE: XR CHEST 1V INDICATIONS: flu-like symptoms TECHNIQUE: One view of the chest was acquired. COMPARISON: [facility], , XR CHEST 1V, 06/13/2020, 9:30. FINDINGS: Surgical changes and devices: None. Lungs and pleura: Low lung volumes are noted. This causes a crowded appearance to the lung markings and limits evaluation. Patchy bilateral interstitial type infiltrates are seen. No large pneumothorax or large pleural effusions are seen. Mediastinum: Mediastinal contours appear normal. Heart size is normal. Bones and chest wall: No suspicious bony lesions. Age-appropriate bony degenerative changes are seen. Mild dextroconvex scoliotic curvature is seen. Overlying soft tissues appear unremarkable. IMPRESSION: Bilateral interstitial infiltrates are seen. Please consider COVID pneumonia. Dictated by: Fredis Mccarty M.D. on 06/16/2020 at 12:44 Approved by: Fredis Mccarty M.D. on 06/16/2020 at 12:45 ECG Data Attestation: I personally reviewed and interpreted this ECG as follows: Prior ECG tracings: not available for review Interpretation: Normal sinus rhythm rate at 84. Left dominant 86. CT interval 175, QRS duration 77, QT/QTC 369/[address] changes MDM Narrative Medical decision making narrative: This 69-year-old female without significant contributory medical history presents to ED with dyspnea and hypoxia. Patient developed COVID symptoms on 06/07/2020 with loss of taste and smell, nonproductive cough, fatigue. Patient had positive COVID test on 06/11/2020 with her . Reports O2 said as low as 78 % in RA with extreme fatigue and short of breath and decided to come back to ED for an evaluation and treatment. Physical exam appreciated Lungs sounds mild wheezing in bilateral lobes and slight tachycardia of 26/minute without significant increased work of breathing. Patient was treated with O2 by nasal cannula 3-4 L to keep O2 said greater than 93%. Chest x-ray shows patchy Bilateral interstitial infiltrates. Labs shows no leukocytosis and normal lactate and procalcitonin. CRP elevated to 5.4 from 3.8 from 2 days ago. Negative D dimer for age adjusted of 382. Mild hyponatremia of 131. Ferritin level, AST, LDH slightly elevated and trending upwards from 2 days ago. Respiratory panel shows positive for COVID-19 but negative for other virus. ABG indicate respiratoy alkalosis. Patient reports feeling improved with IV hydration, dexamethasone 6 mg IV, Albuterol inhaler using a spacer and Remdesivir 200 mg IV. Patient kindly accepted by Dr. Martinez for continuation on the treatment. <Amaury Sterling, DO - Last Filed: 06/16/20 17:23> Lab Data Labs: Lab Results 06/16/20 06/16/20 06/16/20 Range/Units 13:20 13:20 13:20 WBC 6.4 (4.5-11.0) X10^3/uL RBC 4.33 (4.0-5.2) X10^6/uL Hgb 13.6 (12.0-16.0) g/dL Hct 39.6 (36-46) % MCV 91.5 (80-100) fL MCH 31.5 (26-34) PG MCHC 34.5 (30-36) % RDW 13.2 (11.6-14.8) % Plt Count 215 (150-400) X10^3/uL Neut % (Auto) 84.0 H (50-75) % Lymph % (Auto) 8.0 L (25-40) % [place] % (Auto) 7.8 (3-14) % Eos % (Auto) 0.0 L (2-4) % Baso % (Auto) 0.2 (0-2) % Neut # (Auto) 5400 (7891-5093) /uL Lymph # (Auto) 500 L (7010-3082) /uL [place] # (Auto) 500 (0-900) /uL Eos # (Auto) 0 (0-450) /uL Baso # (Auto) 0 (0-100) /uL D-Dimer 382 H (<230) ng/mL ABG pH (7.35-7.45) ABG pCO2 (35-45) mmHg ABG pO2 (80-100) mmHg ABG HCO3 (22-26) mmol/L ABG Total CO2 (21-31) mmol/L ABG O2 Saturation (95-100) % ABG Base Excess (-2-2) mmol/L FiO2 Sodium (137-145) mmol/L Potassium (3.4-5.1) mmol/L Chloride (98-107) mmol/L Carbon Dioxide (22-32) mmol/L BUN (7-17) mg/dL Creatinine (0.52-1.04) mg/dL Estimated GFR (>60) mL/min BUN/Creatinine Ratio (6-22) Glucose (80-110) mg/dL Lactate (0.7-2.1) mmol/L Calcium (8.4-10.2) mg/dL Ferritin (11-264) ng/mL Total Bilirubin (0.2-1.3) mg/dL AST (14-36) IU/L ALT (<35) IU/L Alkaline Phosphatase (38-126) U/L Lactate Dehydrogenase (313-618) U/L Total Creatine Kinase (30-135) U/L CK-MB (CK-2) CK-MB (CK-2) Rel Index Troponin I (0.01-0.034) ng/mL C-Reactive Protein (<1.0) mg/dL NT-Pro-B Natriuret Pep (<125) pg/mL Total Protein (6.3-8.2) g/dL Albumin (3.5-5.0) g/dL Globulin (1.7-4.1) g/dL Albumin/Globulin Ratio (1.0-2.8) Procalcitonin < 0.05 (<0.5) ng/mL Chlamy pneumoniae PCR (Not Detect) Adenovirus (PCR) (Not Detect) B.parapertussis DNA PCR (Not Detect) Coronavirus OC43 (PCR) (Not Detect) Coronavirus HKU1 (PCR) (Not Detect) Coronavirus 229E (PCR) (Not Detect) SARS-CoV-2 (PCR) (Not Detecte) Coronavirus NL63 (PCR) (Not Detect) Human Metapneumovir PCR (Not Detect) Influenza Type A (PCR) (Not Detect) Influenza Type B (PCR) (Not Detect) M. pneumoniae (PCR) (Not Detect) Parainfluenza 1 (PCR) (Not Detect) Parainfluenza 2 (PCR) (Not Detect) Parainfluenza 3 (PCR) (Not Detect) Parainfluenza 4 (PCR) (Not Detect) RSV (PCR) (Not Detect) Entero/Rhino (PCR) (Not Detect) 06/16/20 06/16/20 06/16/20 Range/Units 13:20 13:20 13:20 WBC (4.5-11.0) X10^3/uL RBC (4.0-5.2) X10^6/uL Hgb (12.0-16.0) g/dL Hct (36-46) % MCV (80-100) fL MCH (26-34) PG MCHC (30-36) % RDW (11.6-14.8) % Plt Count (150-400) X10^3/uL Neut % (Auto) (50-75) % Lymph % (Auto) (25-40) % [place] % (Auto) (3-14) % Eos % (Auto) (2-4) % Baso % (Auto) (0-2) % Neut # (Auto) (8166-2314) /uL Lymph # (Auto) (4692-0953) /uL [place] # (Auto) (0-900) /uL Eos # (Auto) (0-450) /uL Baso # (Auto) (0-100) /uL D-Dimer (<230) ng/mL ABG pH (7.35-7.45) ABG pCO2 (35-45) mmHg ABG pO2 (80-100) mmHg ABG HCO3 (22-26) mmol/L ABG Total CO2 (21-31) mmol/L ABG O2 Saturation (95-100) % ABG Base Excess (-2-2) mmol/L FiO2 Sodium 131 L (137-145) mmol/L Potassium 3.9 (3.4-5.1) mmol/L Chloride 101 (98-107) mmol/L Carbon Dioxide 26 (22-32) mmol/L BUN 18 H (7-17) mg/dL Creatinine 0.78 (0.52-1.04) mg/dL Estimated GFR > 60.0 (>60) mL/min BUN/Creatinine Ratio 23.1 H (6-22) Glucose 109 (80-110) mg/dL Lactate 0.9 (0.7-2.1) mmol/L Calcium 8.8 (8.4-10.2) mg/dL Ferritin 372 H (11-264) ng/mL Total Bilirubin 0.3 (0.2-1.3) mg/dL AST 49 H (14-36) IU/L ALT 33 (<35) IU/L Alkaline Phosphatase 89 (38-126) U/L Lactate Dehydrogenase 747 H D (313-618) U/L Total Creatine Kinase 83 (30-135) U/L CK-MB (CK-2) TNP CK-MB (CK-2) Rel Index TNP Troponin I < 0.012 (0.01-0.034) ng/mL C-Reactive Protein 5.4 H (<1.0) mg/dL NT-Pro-B Natriuret Pep 105 (<125) pg/mL Total Protein 7.1 (6.3-8.2) g/dL Albumin 3.7 (3.5-5.0) g/dL Globulin 3.4 (1.7-4.1) g/dL Albumin/Globulin Ratio 1.1 (1.0-2.8) Procalcitonin (<0.5) ng/mL Chlamy pneumoniae PCR Not detected (Not Detect) Adenovirus (PCR) Not detected (Not Detect) B.parapertussis DNA PCR Not detected (Not Detect) Coronavirus OC43 (PCR) Not detected (Not Detect) Coronavirus HKU1 (PCR) Not detected (Not Detect) Coronavirus 229E (PCR) Not detected (Not Detect) SARS-CoV-2 (PCR) Detected H (Not Detecte) Coronavirus NL63 (PCR) Not detected (Not Detect) Human Metapneumovir PCR Not detected (Not Detect) Influenza Type A (PCR) Not detected (Not Detect) Influenza Type B (PCR) Not detected (Not Detect) M. pneumoniae (PCR) Not detected (Not Detect) Parainfluenza 1 (PCR) Not detected (Not Detect) Parainfluenza 2 (PCR) Not detected (Not Detect) Parainfluenza 3 (PCR) Not detected (Not Detect) Parainfluenza 4 (PCR) Not detected (Not Detect) RSV (PCR) Not detected (Not Detect) Entero/Rhino (PCR) Not detected (Not Detect) 06/16/20 Range/Units 13:34 WBC (4.5-11.0) X10^3/uL RBC (4.0-5.2) X10^6/uL Hgb (12.0-16.0) g/dL Hct (36-46) % MCV (80-100) fL MCH (26-34) PG MCHC (30-36) % RDW (11.6-14.8) % Plt Count (150-400) X10^3/uL Neut % (Auto) (50-75) % Lymph % (Auto) (25-40) % [place] % (Auto) (3-14) % Eos % (Auto) (2-4) % Baso % (Auto) (0-2) % Neut # (Auto) (6507-7513) /uL Lymph # (Auto) (4976-5206) /uL [place] # (Auto) (0-900) /uL Eos # (Auto) (0-450) /uL Baso # (Auto) (0-100) /uL D-Dimer (<230) ng/mL ABG pH 7.49 H (7.35-7.45) ABG pCO2 27.5 L (35-45) mmHg ABG pO2 77 L (80-100) mmHg ABG HCO3 21 L (22-26) mmol/L ABG Total CO2 22 (21-31) mmol/L ABG O2 Saturation 97 (95-100) % ABG Base Excess -2.0 (-2-2) mmol/L FiO2 36 Sodium (137-145) mmol/L Potassium (3.4-5.1) mmol/L Chloride (98-107) mmol/L Carbon Dioxide (22-32) mmol/L BUN (7-17) mg/dL Creatinine (0.52-1.04) mg/dL Estimated GFR (>60) mL/min BUN/Creatinine Ratio (6-22) Glucose (80-110) mg/dL Lactate (0.7-2.1) mmol/L Calcium (8.4-10.2) mg/dL Ferritin (11-264) ng/mL Total Bilirubin (0.2-1.3) mg/dL AST (14-36) IU/L ALT (<35) IU/L Alkaline Phosphatase (38-126) U/L Lactate Dehydrogenase (313-618) U/L Total Creatine Kinase (30-135) U/L CK-MB (CK-2) CK-MB (CK-2) Rel Index Troponin I (0.01-0.034) ng/mL C-Reactive Protein (<1.0) mg/dL NT-Pro-B Natriuret Pep (<125) pg/mL Total Protein (6.3-8.2) g/dL Albumin (3.5-5.0) g/dL Globulin (1.7-4.1) g/dL Albumin/Globulin Ratio (1.0-2.8) Procalcitonin (<0.5) ng/mL Chlamy pneumoniae PCR (Not Detect) Adenovirus (PCR) (Not Detect) B.parapertussis DNA PCR (Not Detect) Coronavirus OC43 (PCR) (Not Detect) Coronavirus HKU1 (PCR) (Not Detect) Coronavirus 229E (PCR) (Not Detect) SARS-CoV-2 (PCR) (Not Detecte) Coronavirus NL63 (PCR) (Not Detect) Human Metapneumovir PCR (Not Detect) Influenza Type A (PCR) (Not Detect) Influenza Type B (PCR) (Not Detect) M. pneumoniae (PCR) (Not Detect) Parainfluenza 1 (PCR) (Not Detect) Parainfluenza 2 (PCR) (Not Detect) Parainfluenza 3 (PCR) (Not Detect) Parainfluenza 4 (PCR) (Not Detect) RSV (PCR) (Not Detect) Entero/Rhino (PCR) (Not Detect) Discharge Plan Departure Patient Disposition: Admitted As Inpatient Clinical Impression: COVID-19, Hypoxia Pneumonia Qualifiers: Pneumonia type: due to unspecified organism Laterality: bilateral Lung location: unspecified part of lung Qualified Code(s): J18.9 - Pneumonia, unspecified organism Admit Date/Time: 06/16/20 15:09 Admit Provider: Maren Martinez <Amaury Sterling DO - Last Filed: 06/16/20 17:23> Cosign ED Attending Cosignature Attestation: I was immediately available in the department for consultation. This documentation has been reviewed and I agree with assessment and plan. Supervised by Amaury Sterling DO
[2020-06-16 13:42] LABS: D Dimer 382 ng/mL (<230)
[2020-06-16 13:45] LABS: Fractionated Inspired Oxygen 36; HCO3 ABG 21 mmol/L (22-26); Oxygen Saturation ABG 97 % (95-100); PCO2 ABG 27.5 mmHg (35-45); PO2 ABG 77 mmHg (80-100); TCO2 ABG 22 mmol/L (21-31); pH ABG 7.49 (7.35-7.45)
[2020-06-16 13:46] LABS: Lactate (Lactic Acid) 0.9 mmol/L (0.7-2.1)
[2020-06-16 13:50] LABS: Alanine Aminotransferase 33 IU/L (<35); Albumin 3.7 g/dL (3.5-5.0); Albumin Globulin Ratio 1.1 (1.0-2.8); Alkaline Phosphatase 89 U/L (38-126); Aspartate Aminotransferase 49 IU/L (14-36); BUN Creatinine Ratio 23.1 (6-22); Bilirubin Total 0.3 mg/dL (0.2-1.3); Blood Urea Nitrogen 18 mg/dL (7-17); C-Reactive Protein Quant 5.4 mg/dL (<1.0); Calcium 8.8 mg/dL (8.4-10.2); Carbon Dioxide 26 mmol/L (22-32); Chloride 101 mmol/L (98-107); Creatine Kinase 83 U/L (30-135); Estimated Glomerular Filt Rate > 60.0 mL/min (>60); Globulin 3.4 g/dL (1.7-4.1); Glucose 109 mg/dL (80-110); HEMOLYSIS < 15 (0-50); Lactate Dehydrogenase 747 U/L (313-618); Potassium 3.9 mmol/L (3.4-5.1); Sodium 131 mmol/L (137-145); Total Protein 7.1 g/dL (6.3-8.2)
[2020-06-16] MEDS: DEXAMETHASONE 10 MG/ML VIAL 6 MG IV (13:50)
[2020-06-16 13:52] LABS: Add Manual Diff / Slide Review NO; Basophils Absolute Auto 0 /uL (0-100); Basophils Percent Auto 0.2 % (0-2); Eosinophils Absolute Auto 0 /uL (0-450); Hematocrit 39.6 % (36-46); Hemoglobin 13.6 g/dL (12.0-16.0); Lymphocytes Absolute Auto 500 /uL (1100-4500); Mean Corpuscular HGB Conc 34.5 % (30-36); Mean Corpuscular Hemoglobin 31.5 PG (26-34); Mean Corpuscular Volume 91.5 fL (80-100); Monocytes Absolute Auto 500 /uL (0-900); Monocytes Percent Auto 7.8 % (3-14); Neutrophils Absolute Auto 5400 /uL (1500-7000); Platelet Count 215 X10^3/uL (150-400); Red Blood Cell Count 4.33 X10^6/uL (4.0-5.2); Red Cell Distribution Width 13.2 % (11.6-14.8); White Blood Cell Count 6.4 X10^3/uL (4.5-11.0)
[2020-06-16] MEDS: REMDESIVIR 200 MG in SODIUM CHLORIDE 0.9% 210 ML 250 ML IV (13:52)
[2020-06-16] MEDS: ACETAMINOPHEN 325 MG TABLET 650 MG PO (13:52)
[2020-06-16] MEDS: ALBUTEROL HFA MDI 60 PUFF/8 GM INHALER INH (13:59)
[2020-06-16 14:00] LABS: NT-proBNP (BNP-Adult 18+) 105 pg/mL (<125); Troponin I < 0.012 ng/mL (0.01-0.034)
--- NOTE | 2020-06-16 14:07 | PC.NURSE ---
Patient diagnosed with covid on 06/11. Since that time states has steadily gotten worse and home pulse oximeter reading 74% on RA for last 2 days. Patient appears visibily short of breath, with difficulty communicating after walking short distance into room. Patient 83% O2 on RA, placed on 4L nasal canula and improved to 95%.
[2020-06-16 14:10] LABS: Procalcitonin < 0.05 ng/mL (<0.5)
[2020-06-16 14:22] LABS: Ferritin 372 ng/mL (11-264)
[2020-06-16 14:38] LABS: Adenovirus Not Detected (Not Detect)
[2020-06-16 14:39] LABS: Bordetella pertussis Not Detected (Not Detect); Chlamydophila pneumoniae Not Detected (Not Detect); Coronavirus 229E Not Detected (Not Detect); Coronavirus HKU1 Not Detected (Not Detect); Coronavirus NL 63 Not Detected (Not Detect); Coronavirus OC43 Not Detected (Not Detect); Human Metapneumovirus Not Detected (Not Detect); Human Rhinovirus/Enterovirus Not Detected (Not Detect); Influenza A Not Detected (Not Detect); Influenza B Not Detected (Not Detect); Mycoplasma pneumoniae Not Detected (Not Detect); Parainfluenza Virus 1 Not Detected (Not Detect); Parainfluenza Virus 2 Not Detected (Not Detect); Parainfluenza Virus 3 Not Detected (Not Detect); Parainfluenza Virus 4 Not Detected (Not Detect); Respiratory Syncytial Virus Not Detected (Not Detect); SARS- CoV-2 Detected (Not Detecte)
[2020-06-16] MEDS: ENOXAPARIN 40 MG/0.4 ML SYRINGE SUBCUT (15:12)
[2020-06-16] MEDS: HEPARIN 5,000 UNIT/ML VIAL 5000 UNIT SUBCUT (21:07)
--- NOTE | 2020-06-16 21:42 | PM.HP.1 ---
History of Present Illness History of Present Illness Date Patient Seen: 06/16/20 Time Patient Seen: 20:22 Chief complaint: +Covid, sob Narrative: Patient is a 69-year-old female [place], who presented to ED with a chief complain of short of breath and feeling fatigued, who has no contributory medical history but tested positive for COVID on June 11, 2020. Patient denies chest pain, leg pain, abnormal swelling of hands or feet, changes in vision, weakness to 1 side of the body or other, balance or coordination issues, urinary or bowel issues, headache or diarrhea. Home O2 monitor as low as 78% and decided to return to ED with her who had tested positive as well. Patient has been nauseated and when she used Zofran it causes abdominal cramping discomfort. Patient was in ED on June 13 and discharged to home with Zofran at that time for nausea and abdominal cramping. Patient reports occasionally she has productive cough with thin mucus, decreased appetite, Patient reports her symptoms started 9 days ago without known exposure to COVID with and loss of taste and smell, fatigue, and nonproductive cough. Patient denies recent travel. PCP Dr. Smith. Patient's vitals in ED temp 101?, BP 121/59, HR 76, RR 26, 93% on 4 L nasal cannula. ABG: PH 7.49, pCO2 27.5, PO2 77, HC03 21, total CO2 22, base excess-2.0, FiO2 36. CRP 5.4, lactate 747, procalcitonin negative proBNP negative, D-dimer 382, ferritin 372, troponin negative AST 49, sodium 131. Chest x-ray: Bilateral interstitial infiltrate are seen-COVID pneumonia. EKG:Normal sinus rhythm rate at 84. Left dominant 86. VA interval 175, QRS duration 77, QT/QTC 369/[address] changes. Upon admission to the floor patient is resting comfortably in bed continues to complain of shortness of breath but has improved since the emergency room, frequent coughing and a generalized tightness in her chest. Patient denies fever, body aches, chills chest pain, irregular heart rate, rapid heart rate, chest pain, change in vision, no facial or extremity weakness, numbness or tingling, or calf pain. Patient will be admitted for COVID pneumonia. Patient History Medical History Sinusitis Surgical History (Updated 06/16/20 @ 21:59 by LUIZ Britt) History of rotator cuff surgery Family & Social History Family History (Updated 06/16/20 @ 22:00 by LUIZ Britt) Mother Congestive heart failure Diabetes mellitus Father Stroke Social History: household members spouse Prior Living Arrangements Apartment/Condo Safety & Behavioral: Feels Safe in Current Yes Environment Been Physically Hurt or No Threatened By a Person Suicidal Ideation Description None Suicide Plan Description No Plan Tobacco & Substance use: Smoking Status Never smoker alcohol intake frequency 0-2 drinks per day Substance Use Type does not use Meds Home Medications and Allergies Home Medications Medication Instructions Recorded Confirmed Type albuterol 1 puff INHALATION PRN PRN 06/16/20 06/16/20 History Allergies Allergy/AdvReac Type Severity Reaction Status Date / Time codeine Allergy Verified 06/16/20 13:33 Review of Systems Review of Systems ROS: Yes All systems reviewed with the patient and are negative except as otherwise documented Constitutional Constitutional: Reports system reviewed and no additional complaints, except as documented, Reports lethargy and Reports poor appetite Eyes Eyes: Reports system reviewed and no additional complaints, except as documented ENT Ears, Nose, Mouth, and Throat: Yes epistaxis (Patient upon waking she blows her nose she has epistaxis) Cardiovascular Cardiovascular: Reports dyspnea, Reports dyspnea on exertion and Reports orthopnea Respiratory Respiratory: Reports chest congestion, Reports cough, Reports dyspnea and Reports dyspnea on exertion Gastrointestinal Gastrointestinal: Reports system reviewed and no additional complaints, except as documented Genitourinary Genitourinary: Reports system reviewed and no additional complaints, except as documented Musculoskeletal Musculoskeletal: Reports system reviewed and no additional complaints, except as documented Integumentary/Breasts Skin/Breast: Reports system reviewed and no additional complaints, except as documented Neurologic Neurologic: Reports system reviewed and no additional complaints, except as documented Psychiatric Psychiatric: Reports system reviewed and no additional complaints, except as documented Endocrine Endocrine: Reports system reviewed and no additional complaints, except as documented Hematologic/Lymphatic Hematologic/Lymphatic: Reports system reviewed and no additional complaints, except as documented Allergic/Immunologic Allergic/Immunologic: Reports system reviewed and no additional complaints, except as documented Exam Vital Signs (past 8 hours): - 06/16/20 13:52 06/16/20 13:59 06/16/20 14:00 Temperature 101 F H Pulse Rate 82 85 Respiratory Rate 20 21 Blood Pressure Pulse Oximetry 94 95 06/16/20 14:25 06/16/20 14:30 06/16/20 15:00 Temperature Pulse Rate 82 84 79 Respiratory Rate 20 23 20 Blood Pressure 121/59 L Pulse Oximetry 95 95 96 06/16/20 15:30 06/16/20 16:00 06/16/20 16:39 Temperature Pulse Rate 77 77 76 Respiratory Rate 19 24 26 H Blood Pressure Pulse Oximetry 96 95 93 06/16/20 16:46 06/16/20 19:58 Temperature 98.8 F 98.2 F Pulse Rate 75 67 Respiratory Rate 19 Blood Pressure 130/69 113/55 L Pulse Oximetry 94 Oxygen Delivery Method Nasal Cannula Oxygen Flow Rate 4 Narrative Exam Narrative: General: Patient is a well-developed delightful female, well-nourished in no distress at this time, but has increased work of breathing. Patient unable to complete full sentences without repeated breaths. HEENT: Normocephalic, atraumatic, extraocular muscles intact, oral pharynx is clear and mucous membranes are dry, lips are dry and cracked. Neck is supple and symmetric, trachea is midline, no adenopathy, no thyroid enlargement, nontender, no masses palpated. Negative for JVD Chest: Normal AP diameter and contour without kyphoscoliosis, no nasal flaring, retractions, or tachypneic labored Lungs: Bilaterally tight decreased breath sounds greatest greater in the right over left mild occasional wheezing in bases, frequent nonproductive cough. Cardio: S1 & S2 with regular rate and rhythm without murmur, rubs, or gallops, no carotid bruit, no cardiac pulsations present. Abdomen: Soft nontender, negative for organomegaly, or masses. Bowel sounds are present in all 4 quadrants without guarding or rebound, no CVA tenderness. Musculoskeletal: Muscle strength and tone are equal within normal limits, no deformity, patient has mild bilateral hand and bilateral foot edema nonpitting. Full range of motion intact radial and pedal pulses are normal. Skin: Warm dry and intact without rashes, ulcerations or petechiae. Neuro: Alert and orientated x3, strength is +5/5 in all extremities, sensation to touch intact, no gross deficits noted of cranial nerves. Psych: Patient has a well-kept appearance, appropriate affect, mental status attitude thought context and judgment are appropriate for age. Objective Labs Result Diagrams: 06/16/20 13:20 06/16/20 13:20 Labs: Laboratory Results - last 24 hr 06/16/20 06/16/20 06/16/20 13:20 13:20 13:20 WBC 6.4 RBC 4.33 Hgb 13.6 Hct 39.6 MCV 91.5 MCH 31.5 MCHC 34.5 RDW 13.2 Plt Count 215 Neut % (Auto) 84.0 H Lymph % (Auto) 8.0 L [place] % (Auto) 7.8 Eos % (Auto) 0.0 L Baso % (Auto) 0.2 Neut # (Auto) 5400 Lymph # (Auto) 500 L [place] # (Auto) 500 Eos # (Auto) 0 Baso # (Auto) 0 D-Dimer 382 H ABG pH ABG pCO2 ABG pO2 ABG HCO3 ABG Total CO2 ABG O2 Saturation ABG Base Excess FiO2 Sodium Potassium Chloride Carbon Dioxide BUN Creatinine Estimated GFR BUN/Creatinine Ratio Glucose Lactate Calcium Ferritin Total Bilirubin AST ALT Alkaline Phosphatase Lactate Dehydrogenase Total Creatine Kinase CK-MB (CK-2) CK-MB (CK-2) Rel Index Troponin I C-Reactive Protein NT-Pro-B Natriuret Pep Total Protein Albumin Globulin Albumin/Globulin Ratio Procalcitonin < 0.05 Chlamy pneumoniae PCR Adenovirus (PCR) B.parapertussis DNA PCR Coronavirus OC43 (PCR) Coronavirus HKU1 (PCR) Coronavirus 229E (PCR) SARS-CoV-2 (PCR) Coronavirus NL63 (PCR) Human Metapneumovir PCR Influenza Type A (PCR) Influenza Type B (PCR) M. pneumoniae (PCR) Parainfluenza 1 (PCR) Parainfluenza 2 (PCR) Parainfluenza 3 (PCR) Parainfluenza 4 (PCR) RSV (PCR) Entero/Rhino (PCR) 06/16/20 06/16/20 06/16/20 13:20 13:20 13:20 WBC RBC Hgb Hct MCV MCH MCHC RDW Plt Count Neut % (Auto) Lymph % (Auto) [place] % (Auto) Eos % (Auto) Baso % (Auto) Neut # (Auto) Lymph # (Auto) [place] # (Auto) Eos # (Auto) Baso # (Auto) D-Dimer ABG pH ABG pCO2 ABG pO2 ABG HCO3 ABG Total CO2 ABG O2 Saturation ABG Base Excess FiO2 Sodium 131 L Potassium 3.9 Chloride 101 Carbon Dioxide 26 BUN 18 H Creatinine 0.78 Estimated GFR > 60.0 BUN/Creatinine Ratio 23.1 H Glucose 109 Lactate 0.9 Calcium 8.8 Ferritin 372 H Total Bilirubin 0.3 AST 49 H ALT 33 Alkaline Phosphatase 89 Lactate Dehydrogenase 747 H D Total Creatine Kinase 83 CK-MB (CK-2) TNP CK-MB (CK-2) Rel Index TNP Troponin I < 0.012 C-Reactive Protein 5.4 H NT-Pro-B Natriuret Pep 105 Total Protein 7.1 Albumin 3.7 Globulin 3.4 Albumin/Globulin Ratio 1.1 Procalcitonin Chlamy pneumoniae PCR Not detected Adenovirus (PCR) Not detected B.parapertussis DNA PCR Not detected Coronavirus OC43 (PCR) Not detected Coronavirus HKU1 (PCR) Not detected Coronavirus 229E (PCR) Not detected SARS-CoV-2 (PCR) Detected H Coronavirus NL63 (PCR) Not detected Human Metapneumovir PCR Not detected Influenza Type A (PCR) Not detected Influenza Type B (PCR) Not detected M. pneumoniae (PCR) Not detected Parainfluenza 1 (PCR) Not detected Parainfluenza 2 (PCR) Not detected Parainfluenza 3 (PCR) Not detected Parainfluenza 4 (PCR) Not detected RSV (PCR) Not detected Entero/Rhino (PCR) Not detected 06/16/20 13:34 WBC RBC Hgb Hct MCV MCH MCHC RDW Plt Count Neut % (Auto) Lymph % (Auto) [place] % (Auto) Eos % (Auto) Baso % (Auto) Neut # (Auto) Lymph # (Auto) [place] # (Auto) Eos # (Auto) Baso # (Auto) D-Dimer ABG pH 7.49 H ABG pCO2 27.5 L ABG pO2 77 L ABG HCO3 21 L ABG Total CO2 22 ABG O2 Saturation 97 ABG Base Excess -2.0 FiO2 36 Sodium Potassium Chloride Carbon Dioxide BUN Creatinine Estimated GFR BUN/Creatinine Ratio Glucose Lactate Calcium Ferritin Total Bilirubin AST ALT Alkaline Phosphatase Lactate Dehydrogenase Total Creatine Kinase CK-MB (CK-2) CK-MB (CK-2) Rel Index Troponin I C-Reactive Protein NT-Pro-B Natriuret Pep Total Protein Albumin Globulin Albumin/Globulin Ratio Procalcitonin Chlamy pneumoniae PCR Adenovirus (PCR) B.parapertussis DNA PCR Coronavirus OC43 (PCR) Coronavirus HKU1 (PCR) Coronavirus 229E (PCR) SARS-CoV-2 (PCR) Coronavirus NL63 (PCR) Human Metapneumovir PCR Influenza Type A (PCR) Influenza Type B (PCR) M. pneumoniae (PCR) Parainfluenza 1 (PCR) Parainfluenza 2 (PCR) Parainfluenza 3 (PCR) Parainfluenza 4 (PCR) RSV (PCR) Entero/Rhino (PCR) Assessment & Plan Assessment & Plan narrative: This patient requires acute care inpatient hospital management for COVID pneumonia. After failing outpatient management of SARS-CoV-2 infection diagnosed on 06/07/2020. Patients spouse was also admitted for positive COVID pneumonia and is in the room next to her. The patient is at much higher risk for medical and surgical complications because of age of 69 years. These factors increase the difficulty and complexity of medical interventions and increases the chances of poor outcomes such as morbidity and mortality, as well as complications such as acute respiratory distress, acute NJ, ischemic stroke, PE, DVT. The patient's COVID pneumonia will impact her ability to oxygenate without the assistance of oxygen as evidenced by 94% O2 saturation on 4 L of oxygen. 1. Acute COVID pneumonia, acute, present on admission SARS-CoV-2 -Diagnosis approximately 9 days ago, patient is not in acute respiratory failure or hypoxic. -vitals in ED temp 101?, BP 121/59, HR 76, RR 26, 93% on 4 L nasal cannula. ABG: PH 7.49, pCO2 27.5, PO2 77, HC03 21, total CO2 22, base excess-2.0, FiO2 36. CRP 5.4, lactate 747, procalcitonin negative proBNP negative, D-dimer 382, ferritin 372, troponin negative AST 49, sodium 131. Chest x-ray: Bilateral interstitial infiltrate are seen-COVID pneumonia. EKG:Normal sinus rhythm rate at 84. Left dominant 86. VA interval 175, QRS duration 77, QT/QTC 369/[address] changes. -In ED: Respiratory panel- negative, positive COVID test on 06/07/2020, QSOFA score 1, blood cultures pending, patient given 6 mg of dexamethasone, albuterol inhaler 2 puffs, acetaminophen 250 mg, enoxaparin 40 mg, normal saline 1000 cc, remdesivir 200 mg. -patient to be monitored on [facility] medicine, vital signs q.4 hours, intake and output monitored Q shift, weight measure daily, diet: Regular -Supplemental NC -maintain SaO2 greater than 90%, check peak flow expiratory flow q.day 1-2 days. -vital signs on admission: Temp 97.7?, BP 127/75, HR 70, RR 18, O2 sat 92% on 4 L nasal cannula -ABG/Resp Consult-O2 saturation drops below 90%, Max 6L/Min NC -medications ordered: Remdesivir 100 mg p.o. q.day & dexamethasone 6 mg QD x 10 days or until D/C per coronavirus infectious disease is modify May 2020 treatment guidelines per up-to-date. Consider proning if patient becomes hypoxic -On admit SOFA score of 3, SAPS Score of 35 -albuterol HFA inhaler 2 puffs every 4-6 hours as needed cough or shortness of breath, LMW heparin 5000 units q.day -labs ordered PT/PTT every other day, troponin 48 hour repeat, D-dimer and lactate repeat in a.m., CBC and CMP daily, sputum culture and Gram stain, hep B and C, HIV per guidelines -avoiding nebulizer aerosol treatments, if signs and symptoms are worsening order chest x-ray and echo -monitor patient for acute NJ, ischemic stroke, PE, DVT, venous thrombosis, hyperglycemia an increased risk of bacterial infections, fungal and strongyloides -consults ordered physical therapy, occupational therapy, speech therapy, dietary, respiratory therapy. -prevention vaccine: Recommend yearly flu vaccine, shingles, pneumonia, COVID vaccine when it is available. Code status: Full code Surrogate/plan of care: Spouse: Miles COOPER PCR: Positive VTE prophylaxis: LMW heparin 5000 units Scores GCS [place] coma scale eye opening: Spontaneous [place] coma scale verbal response: Orientated [place] coma scale motor response: Obey commands [place] coma scale total score: 15 SOFA PaO2/FIO2: < 220 mmHg Platelets: >= 150 Bilirubin: < 1.2 mg/dL Hypotension: MAP >= 70 mmHg [place] Coma Scale: 15 Renal: < 1.2 mg/dL SOFA Score: 3 Wells' Criteria for PE Clinical signs and symptoms of DVT: No PE is #1 Dx or equally likely: No Heart rate > 100: No Immobilization at least 3 days or surg in previous 4 weeks: No History of PE or DVT: No Hemoptysis: No Malignancy w/Treatment within 6 months or palliative: No Wells' PE Score total: 0
[2020-06-16] MEDS: ALBUTEROL HFA PREPACK 1 BOX MISC (22:03)
[2020-06-17] VITALS (21 sets, daily range): BP systolic 103–136; BP diastolic 56–71; PULSE 62–86; RESP 14–24; TEMP 36.1–37.2; O2SAT 82–96
--- NOTE | 2020-06-17 01:13 | PC.NURSE ---
Addendum entered by Sierra Segura R.N. 06/17/20 05:35: Notified DARINEL Jara of patient change. Draw morning ABGs and RT to start on non rebreather mask Addendum entered by Sierra Segura R.N. 06/17/20 05:22: Pt upto use restroom. Became short of breath, nauseous, and coughing. O2 sats decreased to 82%. O2 turned upto 6L O2 NC and O2 sats increased to 86-87%. Albuteral puffs given. Reglan administered. Pt reports feeling slightly better. O2 sats continue to run between 85-88%. O2 increased to 9L by RT. Encouraged pt to lye in prone position. Pt now agreeable, had refused in the past. O2 sats now at 92% on 9L o2. [facility] Original Note: Pt alert and oriented x4. Denies any pain. Reports shortness of breath with coughing. Instructed patient to use call light, pt agrees. Sating at 92% on 4L NC without issues. Pt denies complaints. [facility]
[2020-06-17] MEDS: METOCLOPRAMIDE 10 MG/2 ML INJ 5 MG IV (04:45)
[2020-06-17] MEDS: ALBUTEROL 2 EACH INH (05:15)
[2020-06-17 05:39] LABS: Add Manual Diff / Slide Review NO; Basophils Absolute Auto 0 /uL (0-100); Basophils Percent Auto 0.4 % (0-2); Eosinophils Absolute Auto 0 /uL (0-450); Hematocrit 41.1 % (36-46); Hemoglobin 13.8 g/dL (12.0-16.0); Lymphocytes Absolute Auto 700 /uL (1100-4500); Lymphocytes Percent Auto 11.4 % (25-40); Mean Corpuscular HGB Conc 33.6 % (30-36); Mean Corpuscular Hemoglobin 31.2 PG (26-34); Mean Corpuscular Volume 92.9 fL (80-100); Monocytes Absolute Auto 400 /uL (0-900); Monocytes Percent Auto 6.7 % (3-14); Neutrophils Absolute Auto 4700 /uL (1500-7000); Neutrophils Percent Auto 81.5 % (50-75); Platelet Count 246 X10^3/uL (150-400); Red Blood Cell Count 4.43 X10^6/uL (4.0-5.2); Red Cell Distribution Width 13.4 % (11.6-14.8); White Blood Cell Count 5.7 X10^3/uL (4.5-11.0)
[2020-06-17 05:45] LABS: Lactate (Lactic Acid) 1.5 mmol/L (0.7-2.1)
[2020-06-17 05:47] LABS: Alanine Aminotransferase 32 IU/L (<35); Albumin 3.4 g/dL (3.5-5.0); Alkaline Phosphatase 83 U/L (38-126); Aspartate Aminotransferase 45 IU/L (14-36); BUN Creatinine Ratio 24.7 (6-22); Bilirubin Total 0.2 mg/dL (0.2-1.3); Blood Urea Nitrogen 18 mg/dL (7-17); Calcium 8.4 mg/dL (8.4-10.2); Carbon Dioxide 27 mmol/L (22-32); Chloride 101 mmol/L (98-107); Estimated Glomerular Filt Rate > 60.0 mL/min (>60); Globulin 3.3 g/dL (1.7-4.1); Glucose 118 mg/dL (80-110); HEMOLYSIS < 15 (0-50); Potassium 3.7 mmol/L (3.4-5.1); Sodium 133 mmol/L (137-145); Total Protein 6.7 g/dL (6.3-8.2)
[2020-06-17 05:50] LABS: Prothrombin Time 11.9 SECONDS (10.1-12.7)
[2020-06-17 05:53] LABS: PTT Partial Thromboplastin Tim 32 SECONDS (26.4-36.2)
[2020-06-17 05:54] LABS: D Dimer 381 ng/mL (<230)
[2020-06-17 06:22] LABS: Fractionated Inspired Oxygen 67; HCO3 ABG 21 mmol/L (22-26); Oxygen Saturation ABG 94 % (95-100); PCO2 ABG 28.3 mmHg (35-45); PO2 ABG 67 mmHg (80-100); TCO2 ABG 22 mmol/L (21-31); pH ABG 7.47 (7.35-7.45)
--- NOTE | 2020-06-17 08:47 | PT-IP ANOTE ---
Per conversation with hospitalist Dr. Martinez, pt is not appropriate for therapy at this time. PT will discharge orders. Please re-consult as needed.
[2020-06-17] MEDS: DEXAMETHASONE 10 MG/ML VIAL 6 MG IV (09:25)
[2020-06-17] MEDS: HEPARIN 5,000 UNIT/ML VIAL 5000 UNIT SUBCUT ×2 (09:25→19:38)
[2020-06-17] MEDS: ALBUTEROL HFA MDI 60 PUFF/8 GM INHALER INH ×3 (10:24→19:09)
--- NOTE | 2020-06-17 11:10 | PC.NURSE ---
Addendum entered by Reggie Mcclain R.N. 06/17/20 15:23: Patient without new complaint. Was assisted by EQUIPMENT MECHANIC SPECIALIST up to the BSC and then chair to have a late lunch. Continues on HHFNC, weaning by Respiratory therapy. Call light within reach. Addendum entered by Reggie Mcclain R.N. 06/17/20 11:24: Patient given a surgical mask and asked to wear over HHFNC when health care providers enter the room. Patient agrees. Original Note: Patient up in chair for breakfast, tolerated breakfast. Placed on HHFNC during the night, and remains on this morning. Respiratory following to wean Fio2 per protocol and to maintain o2 >92%. Patient's RR remains WNL and does not appear in respiratory distress this morning. Dry cough continues intermittently. Patient assisted to BSC and then back to bed. Re iterated the importance of self proning positioning and re educated on the cycle of positioning (prone, right and left side laying), patient able to reposition herself in bed. Refusing calf SCDs (educated twice on Importance of blood clot prevention, and patient again declines to wear them), agrees to do ankle pumps and move legs in bed for circulation. Call light within reach, continue to monitor.
[2020-06-17] MEDS: REMDESIVIR 100 MG in SODIUM CHLORIDE 0.9% 230 ML 250 ML IV (12:48)
--- NOTE | 2020-06-17 17:47 | P.PN_ITS ---
Subjective Subjective Date Patient Seen: 06/17/20 Interval history: The patient is a 69-year-old female admitted to the hospital with COVID-19 pneumonia. She presented to the emergency room on 06/11. She was LFJN-[id number] positive. She presented again on the with worsening symptoms. At that point she was not hypoxic. The patient presented last evening was found to be markedly hypoxic with O2 sats in the 70s to 80%. She was admitted to the hospital for acute hypoxic respiratory failure. Overnight the patient has had progression of her hypoxemia. She is now on high-flow oxygen at 50% FiO2 and 40 L of oxygen. She initially was on 60% FiO2 and has taper down somewhat. On the 50% FiO2 at 40 L her O2 sats are maintaining at 92-93%. Exam Vital Signs (past 8 hours): - 06/17/20 10:19 06/17/20 10:21 06/17/20 12:41 Temperature Pulse Rate 80 77 Respiratory Rate 18 14 Blood Pressure Pulse Oximetry 93 92 93 06/17/20 13:00 06/17/20 14:00 06/17/20 15:47 Temperature 97.3 F L Pulse Rate 81 82 Respiratory Rate 17 20 Blood Pressure 125/63 Pulse Oximetry 90 L 94 93 06/17/20 16:36 06/17/20 17:23 Temperature 98.5 F Pulse Rate 73 84 Respiratory Rate 24 18 Blood Pressure 112/64 Pulse Oximetry 94 93 Fraction of Inspired Oxygen 50 Oxygen Delivery Method Heated High Flow Oxygen Flow Rate 40 Narrative Exam Narrative: Pleasant female lying in bed in no obvious distress Lungs: Decreased breath sounds bilaterally Cardiac exam: Regular rate and rhythm normal S1-S2 Abdomen: Soft nontender nondistended without hepatosplenomegaly Extremities: No edema Objective Labs Result Diagrams: 06/17/20 04:50 06/17/20 04:50 Labs: Laboratory Results - last 24 hr 06/17/20 06/17/20 06/17/20 04:50 04:50 04:50 WBC 5.7 RBC 4.43 Hgb 13.8 Hct 41.1 MCV 92.9 MCH 31.2 MCHC 33.6 RDW 13.4 Plt Count 246 Neut % (Auto) 81.5 H Lymph % (Auto) 11.4 L Pope % (Auto) 6.7 Eos % (Auto) 0.0 L Baso % (Auto) 0.4 Neut # (Auto) 4700 Lymph # (Auto) 700 L Pope # (Auto) 400 Eos # (Auto) 0 Baso # (Auto) 0 PT 11.9 INR 1.0 APTT 32 D-Dimer 381 H ABG pH ABG pCO2 ABG pO2 ABG HCO3 ABG Total CO2 ABG O2 Saturation ABG Base Excess FiO2 Sodium 133 L Potassium 3.7 Chloride 101 Carbon Dioxide 27 BUN 18 H Creatinine 0.73 Estimated GFR > 60.0 BUN/Creatinine Ratio 24.7 H Glucose 118 H Lactate Calcium 8.4 Magnesium 2.0 Total Bilirubin 0.2 AST 45 H ALT 32 Alkaline Phosphatase 83 Total Protein 6.7 Albumin 3.4 L Globulin 3.3 Albumin/Globulin Ratio 1.0 06/17/20 06/17/20 04:50 06:15 WBC RBC Hgb Hct MCV MCH MCHC RDW Plt Count Neut % (Auto) Lymph % (Auto) Pope % (Auto) Eos % (Auto) Baso % (Auto) Neut # (Auto) Lymph # (Auto) Pope # (Auto) Eos # (Auto) Baso # (Auto) PT INR APTT D-Dimer ABG pH 7.47 H ABG pCO2 28.3 L ABG pO2 67 L ABG HCO3 21 L ABG Total CO2 22 ABG O2 Saturation 94 L ABG Base Excess -3.0 L FiO2 67 Sodium Potassium Chloride Carbon Dioxide BUN Creatinine Estimated GFR BUN/Creatinine Ratio Glucose Lactate 1.5 Calcium Magnesium Total Bilirubin AST ALT Alkaline Phosphatase Total Protein Albumin Globulin Albumin/Globulin Ratio [facility] Medical History Sinusitis Surgical History (Updated 06/16/20 @ 21:59 by LUIZ Britt) History of rotator cuff surgery Family History (Updated 06/16/20 @ 22:00 by LUIZ Britt) Mother Congestive heart failure Diabetes mellitus Father Stroke Social History household members: spouse Smoking Status: Never smoker Assessment & Plan Assessment & Plan narrative: Impression 1. 69-year-old female admitted to the hospital with acute hypoxic respiratory failure -patient has [id number] pneumonia -chest x-ray confirms bilateral alveolar infiltrate -she has had progressive hypoxemia now on 40 L of oxygen with an FiO2 of 50%, this is improved from 60% FiO2 -despite this she is at very high risk for deterioration, should the patient require increasing oxygenation would consider a trial of BiPAP prior to intubation -previously the patient was using an albuterol inhaler to help with wheezing, no wheezing on exam today -patient currently on remdesivir and Decadron will continue standard treatment -she is receiving DVT prophylaxis -will continue to monitor patient closely should the patient's D-dimer rise above 1000 would consider treatment doses Lovenox 2 hyponatremia likely related to her pulmonary infection -will defer IV hydration -will continue to monitor closely
[2020-06-17] MEDS: ACETAMINOPHEN 325 MG TABLET 650 MG PO (19:38)
[2020-06-17 21:06] LABS: HIV 1 & 2 Ab/Ag 4th Gen Combo NEGATIVE (NEGATIVE)
[2020-06-17] MEDS: FAMOTIDINE 20 MG TABLET PO (21:38)
[2020-06-17] MEDS: SODIUM CHLORIDE 0.9% FLUSH 10 ML IV (21:39)
[2020-06-17] MEDS: MELATONIN 3 MG TABLET 6 MG PO (21:39)
--- NOTE | 2020-06-17 22:49 | PC.NURSE ---
2245 patient had 10 beats of Vtach. ASHISH Babin notified and orders put in for potassium and a troponin check. Patient is sound asleep on her side.
[2020-06-18] VITALS (21 sets, daily range): BP systolic 107–162; BP diastolic 58–69; PULSE 64–84; RESP 16–26; TEMP 36.4–37.2; O2SAT 89–98
[2020-06-18] MEDS: POTASSIUM CHLORIDE 40 MEQ in SODIUM CHLORIDE 0.9% 500 ML 130 ML IV (00:11)
[2020-06-18 00:15] LABS: Troponin I < 0.012 ng/mL (0.01-0.034)
--- NOTE | 2020-06-18 01:50 | PC.NURSE ---
Addendum entered by Sierra Segura R.N. 06/18/20 07:16: Late entry 0500 - Pt refusing to lay in prone position. Encouraged pt to try and educated pt on the importance. Original Note: Pt alert and oriented x4. Denies pain. Intermittent frequent coughing. Dry hacking. Shortness of breath and pt desats to 84% on HHFNC with activity. Sponge bath given in bed. Pt changed position to prone at 0130, encouraged pt to to position in prone position as much as possible. Denies complaints. WCTM
[2020-06-18 02:36] LABS: HBsAg Screen Negative (Negative); Hepatitis A Antibody IgM Negative (Negative); Hepatitis B Core Antibody IgM Negative (Negative); Hepatitis C Antibody <0.1 s/co ratio (0.0-0.9)
[2020-06-18 05:45] LABS: Add Manual Diff / Slide Review NO; Basophils Absolute Auto 0 /uL (0-100); Basophils Percent Auto 0.2 % (0-2); Eosinophils Absolute Auto 0 /uL (0-450); Hematocrit 39.8 % (36-46); Hemoglobin 13.4 g/dL (12.0-16.0); Lymphocytes Absolute Auto 800 /uL (1100-4500); Lymphocytes Percent Auto 7.9 % (25-40); Mean Corpuscular HGB Conc 33.6 % (30-36); Mean Corpuscular Volume 92.5 fL (80-100); Monocytes Absolute Auto 500 /uL (0-900); Monocytes Percent Auto 4.9 % (3-14); Neutrophils Absolute Auto 8800 /uL (1500-7000); Platelet Count 257 X10^3/uL (150-400); Red Blood Cell Count 4.31 X10^6/uL (4.0-5.2); Red Cell Distribution Width 13.4 % (11.6-14.8); White Blood Cell Count 10.1 X10^3/uL (4.5-11.0)
[2020-06-18 05:55] LABS: BUN Creatinine Ratio 29.9 (6-22); Blood Urea Nitrogen 20 mg/dL (7-17); Calcium 8.4 mg/dL (8.4-10.2); Carbon Dioxide 23 mmol/L (22-32); Chloride 107 mmol/L (98-107); Estimated Glomerular Filt Rate > 60.0 mL/min (>60); Glucose 103 mg/dL (80-110); HEMOLYSIS < 15 (0-50); Potassium 4.3 mmol/L (3.4-5.1); Sodium 134 mmol/L (137-145)
[2020-06-18 06:35] LABS: D Dimer 370 ng/mL (<230)
[2020-06-18] MEDS: SODIUM CHLORIDE 0.9% FLUSH 10 ML IV ×2 (08:25→20:26)
[2020-06-18] MEDS: DEXAMETHASONE 10 MG/ML VIAL 6 MG IV (08:25)
[2020-06-18] MEDS: guaiFENesin ER 600 MG TAB PO ×2 (08:25→20:22)
[2020-06-18] MEDS: FAMOTIDINE 20 MG TABLET PO (08:25)
[2020-06-18] MEDS: HEPARIN 5,000 UNIT/ML VIAL 5000 UNIT SUBCUT ×2 (08:25→20:22)
[2020-06-18] MEDS: ALBUTEROL HFA MDI 60 PUFF/8 GM INHALER INH ×3 (08:56→20:58)
--- NOTE | 2020-06-18 09:10 | CM.DPC ---
DCP/Brief Assessment: Reviewed chart. Patient is a 69yr old female admitted to [facility] on 06[facility]-20 with SOB related to COVID positive. PCP listed is Theresa Smith. Primary payor is 1)[employer]are 2)[employer]. Patient currently on 40 liters of 02. CM team did not go into room due to COVID precautions and patient's current medical status. RN reports patient's current condition is guarded. Patient having difficulty with movement/proning. Patient currently up in chair. At this time d/c needs unknown. CM team to continue to follow closely. Patient's spouse also currently hospitalized with COVID. P: Pending. Anticipate home when medically stable if patient improves. KIMBERLY Gardiner Discharge Planning/Care Management Advanced directive, confirm from FAMILY Start: 06/16/20 17:11 Freq: Q24H Status: Complete Protocol: Document 06/16/20 17:13 AK (Rec: 06/16/20 17:13 AK [id number]) Advance Directive, confirm on record Time 17:13 Person contacted Copy received No Document 06/16/20 23:54 KA (Rec: 06/16/20 23:54 KA [id number]) Advance Directive, confirm on record Time 17:13 Person contacted Copy received No CM Discharge Assessment Start: 06/18/20 09:06 Freq: Status: Active Protocol: Document 06/18/20 09:07 KJS (Rec: 06/18/20 09:10 KJS [id number]) Discharge Planning Assessment Assigned [employer] KIMBERLY Gardiner Contact Information Miles Vale (spouse) ph# [phone] Advance Directives? Yes History Provided By Medical Record Prior Living Arrangements Apartment/Condo Household Members spouse Independent with ADL's Patient COVID positive Discharge Plan Home Review Status In Process Next Review Type Continued Stay Review
--- NOTE | 2020-06-18 12:43 | DIET.PN ---
Dietary Progress Note RD note: to support nutrition for Covid19 pneumonia kitchen sending ONS Ensure Max c lunch to support protein needs in low kcal/low CHO formula
[2020-06-18] MEDS: REMDESIVIR 100 MG in SODIUM CHLORIDE 0.9% 230 ML 250 ML IV (13:11)
--- NOTE | 2020-06-18 14:47 | PC.NURSE ---
Day Shift Note Patient initially on 50% FiO2 and 40L flow on heated HFNC but was saturating 87-88% at rest. Increased to 55% FiO2 at about 0910 by RT and pt instructed on need to deep breathe in room and to prone whenever in bed. RT instructed on acapella and pt using independently at bedside. SpO2 now in the 92-93% at rest and increases to 96-97% when proning. Reports feeling better today. Denies pain. Denies nausea this afternoon. Call light within reach, using appropriately to make needs known.
--- NOTE | 2020-06-18 19:32 | PM.PN.1 ---
Subjective Subjective Date Patient Seen: 06/18/20 Time Patient Seen: 19:32 Interval history: The patient is a 69-year-old female admitted to the hospital with COVID-19 pneumonia. She presented to the emergency room on 06/11. She was [id number] positive. She presented again on the with worsening symptoms. At that point she was not hypoxic. The patient presented again was found to be markedly hypoxic with O2 sats in the 70s to 80%. She was admitted to the hospital for acute hypoxic respiratory failure. Max oxygen use so far was initially the patient was on 60% FiO2 and 40 L. She was able to be decreased somewhat but has remained stable around these values. She is currently on 55% at 40 L. She denies any significant shortness of breath at rest, she does have a cough which is now productive white sputum. She denies any fevers, chills. She has no nausea, vomiting, or abdominal pain. She has had no diarrhea and denies constipation. Exam Vital Signs (past 8 hours): - 06/18/20 12:00 06/18/20 12:32 06/18/20 13:15 Temperature 98.9 F Pulse Rate 70 64 Respiratory Rate 20 20 Blood Pressure 113/68 Pulse Oximetry 96 96 91 06/18/20 14:14 06/18/20 16:15 06/18/20 16:27 Temperature 97.9 F Pulse Rate 81 74 84 Respiratory Rate 20 24 21 Blood Pressure 162/69 H Pulse Oximetry 97 96 94 06/18/20 16:45 Temperature Pulse Rate Respiratory Rate Blood Pressure Pulse Oximetry 93 Fraction of Inspired Oxygen 55 Oxygen Delivery Method High Flow Nasal Cannula Oxygen Flow Rate 40 Narrative Exam Narrative: Gen: Pleasant female lying in bed in no obvious distress Lungs: Decreased breath sounds bilaterally Cardiac exam: Regular rate and rhythm normal S1-S2 Abdomen: Soft nontender nondistended without hepatosplenomegaly Extremities: No edema Objective Labs Result Diagrams: 06/18/20 04:55 06/18/20 04:55 Labs: Laboratory Results - last 24 hr 06/17/20 06/17/20 06/17/20 04:50 04:50 23:16 WBC RBC Hgb Hct MCV MCH MCHC RDW Plt Count Neut % (Auto) Lymph % (Auto) [place] % (Auto) Eos % (Auto) Baso % (Auto) Neut # (Auto) Lymph # (Auto) [place] # (Auto) Eos # (Auto) Baso # (Auto) D-Dimer Sodium Potassium Chloride Carbon Dioxide BUN Creatinine Estimated GFR BUN/Creatinine Ratio Glucose Calcium Troponin I < 0.012 Hepatitis A IgM Ab Negative Hep Bs Antigen Negative Hep B Core IgM Ab Negative Hepatitis C Antibody <0.1 Hep C Ab Signal/Cutoff Comment HIV 1&2 Ab/P24 Ag 4thGn Negative 06/18/20 06/18/20 06/18/20 04:55 04:55 04:55 WBC 10.1 D RBC 4.31 Hgb 13.4 Hct 39.8 MCV 92.5 MCH 31.0 MCHC 33.6 RDW 13.4 Plt Count 257 Neut % (Auto) 87.0 H Lymph % (Auto) 7.9 L [place] % (Auto) 4.9 Eos % (Auto) 0.0 L Baso % (Auto) 0.2 Neut # (Auto) 8800 H Lymph # (Auto) 800 L [place] # (Auto) 500 Eos # (Auto) 0 Baso # (Auto) 0 D-Dimer 370 H Sodium 134 L Potassium 4.3 Chloride 107 Carbon Dioxide 23 BUN 20 H Creatinine 0.67 Estimated GFR > 60.0 BUN/Creatinine Ratio 29.9 H Glucose 103 Calcium 8.4 Troponin I Hepatitis A IgM Ab Hep Bs Antigen Hep B Core IgM Ab Hepatitis C Antibody Hep C Ab Signal/Cutoff HIV 1&2 Ab/P24 Ag 4thGn [facility] Medical History Sinusitis Surgical History (Updated 06/16/20 @ 21:59 by LEILA Britt-RANJEET) History of rotator cuff surgery Family History (Updated 06/16/20 @ 22:00 by LEILA Britt-RANJEET) Mother Congestive heart failure Diabetes mellitus Father Stroke Social History household members: spouse Smoking Status: Never smoker Assessment & Plan Assessment & Plan narrative: 1. 69-year-old female admitted to the hospital with acute hypoxic respiratory failure -patient has [id number] pneumonia -chest x-ray confirms bilateral alveolar infiltrate -she has had progressive hypoxemia now on 40 L of oxygen with an FiO2 of 55%, this is improved somewhat from 60% FiO2 -despite this she is at very high risk for deterioration, should the patient require increasing oxygenation would consider a trial of BiPAP prior to intubation -previously the patient was using an albuterol inhaler to help with wheezing, no wheezing on exam. -patient currently on remdesivir and Decadron will continue standard treatment -she is receiving DVT prophylaxis. Troponin was checked yesterday evening and was negative for a run of NSVT. -will continue to monitor patient closely should the patient's D-dimer rise above 1000 would consider treatment doses Lovenox 2 hyponatremia likely related to her pulmonary infection -will defer IV hydration -will continue to monitor closely, now 134. 3. Elevated blood pressure without a diagnosis of hypertension - possibly related to anxiety and acute illness. Will continue to monitor, possibly start therapy if continues. Likely with beta che given NSVT. 4. Nonsustained ventricular tachycardia -overnight 06/17 on telemetry patient was noted to have a 10 beat run of ventricular tachycardia while sleeping. She was not symptomatic during the episode. Troponin was checked and was negative. Will continue telemetry. Potassium was 3.7 and was repleted, now improved to 4.3. Code: Full Dispo: remains inpatient, likely will require extended stay until she is no longer hypoxic, this can sometimes take weeks in those receiving high flow supplemental oxygen. COVID-19 COVID-19 status: Positive
[2020-06-18] MEDS: MELATONIN 3 MG TABLET 6 MG PO (20:22)
--- NOTE | 2020-06-18 21:59 | PC.NURSE ---
shift note: Pt up to chair at bedside for dinner then proned for several hours. Desats to the low 80's with activity. Heated high marcello settings increased to 60L 40%. Pt seems anxious and states she is uncomfortable and feels too warm. Adjustments made as much as possible, positioned for comfort. Will continue to monitor.
[2020-06-19] VITALS (20 sets, daily range): BP systolic 94–139; BP diastolic 54–76; PULSE 62–80; RESP 16–30; TEMP 37–37.4; O2SAT 90–97
[2020-06-19] MEDS: ALBUTEROL HFA MDI 60 PUFF/8 GM INHALER INH ×2 (07:58→14:33)
[2020-06-19] MEDS: HEPARIN 5,000 UNIT/ML VIAL 5000 UNIT SUBCUT ×2 (08:39→20:48)
[2020-06-19] MEDS: DEXAMETHASONE 10 MG/ML VIAL 6 MG IV (08:40)
[2020-06-19] MEDS: guaiFENesin ER 600 MG TAB PO ×2 (08:41→20:48)
[2020-06-19] MEDS: FAMOTIDINE 20 MG TABLET PO (08:41)
[2020-06-19] MEDS: SODIUM CHLORIDE 0.9% FLUSH 10 ML IV ×2 (08:42→23:00)
[2020-06-19] MEDS: REMDESIVIR 100 MG in SODIUM CHLORIDE 0.9% 230 ML 250 ML IV (12:52)
--- NOTE | 2020-06-19 17:17 | P.PN_ITS ---
Subjective Subjective Date Patient Seen: 06/19/20 Time Patient Seen: 14:15 Interval history: The patient is a 69-year-old female admitted to the hospital with COVID-19 pneumonia and acute respiratory failure. Max oxygen use so far was initially the patient was on 60% FiO2 and 40 L. She was able to be decreased somewhat but has remained stable around these values. She is currently on 50% at 40 L. She denies any significant shortness of breath at rest, she does have a cough which is now productive white sputum. She denies any fevers, chills. She has no nausea, vomiting, or abdominal pain. She has had no diarrhea and denies constipation. She is more adamant today to rid herself of this virus so she has been more compliant prone in today. I did discuss that usually patients will prone for about 8 hours, but she does developed back pain and neck pain, she refused any medications to try and help her prone for longer. She will continue to prone as much as possible but currently has only done this for about 2 hours but will try for longer today. Exam Vital Signs (past 8 hours): - 06/19/20 10:57 06/19/20 12:00 06/19/20 12:37 Temperature 99.3 F Pulse Rate 67 80 Respiratory Rate 18 21 Blood Pressure 97/62 Pulse Oximetry 95 93 92 06/19/20 14:33 06/19/20 14:34 06/19/20 16:00 Temperature 99 F Pulse Rate 75 75 79 Respiratory Rate 20 20 30 H Blood Pressure 108/59 L Pulse Oximetry 93 93 91 06/19/20 16:38 Temperature Pulse Rate Respiratory Rate Blood Pressure Pulse Oximetry 92 Fraction of Inspired Oxygen 40 Oxygen Delivery Method Heated High Flow Oxygen Flow Rate 50 Narrative Exam Narrative: Gen: Pleasant female lying in bed in no obvious distress Lungs: Decreased breath sounds bilaterally Cardiac exam: Regular rate and rhythm normal S1-S2 Abdomen: Soft nontender nondistended without hepatosplenomegaly Extremities: No edema Objective Labs Result Diagrams: 06/18/20 04:55 06/18/20 04:55 [facility] Medical History Sinusitis Surgical History (Updated 06/16/20 @ 21:59 by LUIZ Britt) History of rotator cuff surgery Family History (Updated 06/16/20 @ 22:00 by Sada Jara [facility]) Mother Congestive heart failure Diabetes mellitus Father Stroke Social History household members: spouse Smoking Status: Never smoker Assessment & Plan Assessment & Plan narrative: 1. 69-year-old female admitted to the hospital with acute hypoxic respiratory failure -patient has RYDM-[id number]-2 pneumonia -chest x-ray confirms bilateral alveolar infiltrate -she has had progressive hypoxemia now on 40 L of oxygen with an FiO2 of 50%, this is improved somewhat from 60% FiO2 -despite this she is at very high risk for deterioration, should the patient require increasing oxygenation would consider a trial of BiPAP prior to intubation -previously the patient was using an albuterol inhaler to help with wheezing, no wheezing on exam. -patient currently on remdesivir and Decadron will continue standard treatment -she is receiving DVT prophylaxis. Troponin was checked yesterday evening and was negative for a run of NSVT. -will continue to monitor patient closely should the patient's D-dimer rise above 1000 would consider treatment doses Lovenox 2 hyponatremia likely related to her pulmonary infection -will defer IV hydration -will continue to monitor closely, now 134. 3. Elevated blood pressure without a diagnosis of hypertension - possibly related to anxiety and acute illness. Will continue to monitor, possibly start therapy if continues. Likely with beta che given NSVT. 4. Nonsustained ventricular tachycardia -overnight 06/17 on telemetry patient was noted to have a 10 beat run of ventricular tachycardia while sleeping. She was not symptomatic during the episode. Troponin was checked and was negative. Will continue telemetry. P otassium was 3.7 and was repleted, now improved. Code: Full Dispo: remains inpatient, likely will require extended stay until she is no longer hypoxic, this can sometimes take weeks in those receiving high flow supplemental oxygen.
--- NOTE | 2020-06-19 18:05 | RT ---
DR. MAY IS AWARE OF PT'S MED ORDER: ALBUTEROL 4P Q2 PRN. PT IS TOLERATING MED WELL.
[2020-06-19] MEDS: MELATONIN 3 MG TABLET 6 MG PO (20:47)
--- NOTE | 2020-06-19 23:26 | PC.NURSE ---
Patient prone most of shift. Sat in chair for a few minutes and desatted to 86% with RR in 30's. Whe prone, 92-94% and RR <20. Patient in better spirits, minimal complaints of discomfort from proneing and HHF. Using bedside commode. Reports less of a cough than days prior. Had one bout of nausea after moving to chair, was soothed with gingerale. Call light within reach, able to make needs known.
[2020-06-20] VITALS (16 sets, daily range): BP systolic 99–147; BP diastolic 58–77; PULSE 53–82; RESP 14–26; TEMP 36.1–36.8; O2SAT 90–96
--- NOTE | 2020-06-20 02:17 | PC.NURSE ---
0215- Patient assisted to the BSC. Voiding clear yellow urine. Patient has proned approximately 2hrs. Desaturated to 83% while up to BSC but recovery was brisk once back to sidelying. Dulce sheng given per request. Will monitor.
[2020-06-20 04:50] LABS: BUN Creatinine Ratio 25.4 (6-22); Blood Urea Nitrogen 18 mg/dL (7-17); Calcium 8.4 mg/dL (8.4-10.2); Carbon Dioxide 27 mmol/L (22-32); Chloride 103 mmol/L (98-107); Estimated Glomerular Filt Rate > 60.0 mL/min (>60); Glucose 110 mg/dL (80-110); HEMOLYSIS < 15 (0-50); Potassium 4.2 mmol/L (3.4-5.1); Sodium 133 mmol/L (137-145)
[2020-06-20 05:04] LABS: D Dimer 356 ng/mL (<230)
[2020-06-20] MEDS: ALBUTEROL HFA MDI 60 PUFF/8 GM INHALER INH ×2 (07:56→13:33)
--- NOTE | 2020-06-20 07:59 | RT ---
DR. MAY WANTS SPO2 >/= 90% PER VERBAL ORDER.
[2020-06-20] MEDS: guaiFENesin ER 600 MG TAB PO ×2 (08:33→20:11)
[2020-06-20] MEDS: DEXAMETHASONE 10 MG/ML VIAL 6 MG IV (08:33)
[2020-06-20] MEDS: HEPARIN 5,000 UNIT/ML VIAL 5000 UNIT SUBCUT ×2 (08:33→20:11)
[2020-06-20] MEDS: SODIUM CHLORIDE 0.9% FLUSH 10 ML IV ×2 (08:35→20:11)
[2020-06-20] MEDS: FAMOTIDINE 20 MG TABLET PO (08:35)
[2020-06-20] MEDS: REMDESIVIR 100 MG in SODIUM CHLORIDE 0.9% 230 ML 250 ML IV (13:17)
--- NOTE | 2020-06-20 17:02 | P.PN_ITS ---
Subjective Subjective Date Patient Seen: 06/20/20 Time Patient Seen: 17:02 Interval history: The patient is a 69-year-old female admitted to the hospital with COVID-19 pneumonia and acute respiratory failure. Max oxygen use so far was initially the patient was on 60% FiO2 and 40 L. She is currently on 38% FiO2 at 40 L and showing slow improvment. She denies any significant shortness of breath at rest, she does have a cough which is now productive white sputum but is improving. She denies any fevers, chills. She has no nausea, vomiting, or abdominal pain. She has had no diarrhea and denies constipation. She is continuing to prone as much as she can. Exam Vital Signs (past 8 hours): - 06/20/20 10:44 06/20/20 12:00 06/20/20 13:33 Temperature 97.6 F Pulse Rate 71 82 71 Respiratory Rate 20 26 H 18 Blood Pressure 99/62 Pulse Oximetry 93 91 94 06/20/20 16:00 06/20/20 16:44 Temperature 98.1 F Pulse Rate 76 74 Respiratory Rate 21 21 Blood Pressure 117/58 L Pulse Oximetry 96 94 Fraction of Inspired Oxygen 40 Oxygen Delivery Method Heated High Flow Oxygen Flow Rate 40 Narrative Exam Narrative: Gen: Pleasant female lying in bed, proned in no obvious distress Lungs: equal rise bilaterally, no respiratory disteress Cardiac exam: Regular rate and rhythm normal S1-S2 Abdomen: deferred given proned positioning. Grossly non-distended. Extremities: No edema, tenderness Objective Labs Result Diagrams: 06/18/20 04:55 06/20/20 04:10 Labs: Laboratory Results - last 24 hr 06/20/20 06/20/20 04:10 04:10 D-Dimer 356 H Sodium 133 L Potassium 4.2 Chloride 103 Carbon Dioxide 27 BUN 18 H Creatinine 0.71 Estimated GFR > 60.0 BUN/Creatinine Ratio 25.4 H Glucose 110 Calcium 8.4 Magnesium 2.0 [facility] Medical History Sinusitis Surgical History (Updated 06/16/20 @ 21:59 by LUIZ Britt) History of rotator cuff surgery Family History (Updated 06/16/20 @ 22:00 by Sada Jara, [employer] BUSINESS ANALYST-BC) Mother Congestive heart failure Diabetes mellitus Father Stroke Social History household members: spouse Smoking Status: Never smoker Assessment & Plan Assessment & Plan narrative: 69-year-old female admitted to the hospital with acute hypoxic respiratory failure secondary to COVID 19 pneumonia. 1. acute hypoxic respiratory failure secondary to COVID 19 pneumonia. -patient has [id number] pneumonia -chest x-ray confirms bilateral alveolar infiltrate -she has had progressive hypoxemia now on 40 L of oxygen with an FiO2 of 50%, this is improved somewhat from 60% FiO2 -despite this she is at very high risk for deterioration, should the patient require increasing oxygenation would consider a trial of BiPAP prior to intubation -previously the patient was using an albuterol inhaler to help with wheezing, no wheezing on exam. -patient currently on remdesivir and Decadron will continue standard treatment, will extend remdesevir to 10 days given mild improvement thus far. Today is day 10/21. -she is receiving DVT prophylaxis. Troponin was checked and was negative for a run of NSVT. -will continue to monitor patient closely should the patient's D-dimer rise above 1000 would consider treatment doses Lovenox. D-dimer did downtrend today slightly. 2 hyponatremia likely related to her pulmonary infection -will defer IV hydration -will continue to monitor closely, now 134. 3. Elevated blood pressure without a diagnosis of hypertension - possibly related to anxiety and acute illness. Will continue to monitor, possibly start therapy if continues. Likely with beta che given NSVT. 4. Nonsustained ventricular tachycardia -overnight 06/17 on telemetry patient was noted to have a 10 beat run of ventricular tachycardia while sleeping. She was not symptomatic during the episode. Troponin was checked and was negative. Will continue telemetry. Potassium was 3.7 and was repleted, now improved. Code: Full Dispo: remains inpatient, likely will require extended stay until she is no longer hypoxic, this can sometimes take weeks in those receiving high flow supplemental oxygen. COVID-19 COVID-19 status: Positive
[2020-06-20] MEDS: MELATONIN 3 MG TABLET 6 MG PO (20:11)
--- NOTE | 2020-06-20 21:43 | PC.NURSE ---
Shift Note: Pt alert cooperative with care. Agreeable to prone as much as possible, minimum 4 hrs this shift, states she will try to prone for the night. Breath sounds clear but diminished to ascultations bilaterally. She remains on heated high flow 40L 40%, sats 94%. IV to L hand saline locked.
[2020-06-21] VITALS (54 sets, daily range): BP systolic 113–144; BP diastolic 59–82; PULSE 61–130; RESP 16–33; TEMP 36.6–37.2; O2SAT 84–97
[2020-06-21] MEDS: ALBUTEROL HFA MDI 60 PUFF/8 GM INHALER INH ×2 (00:59→09:00)
[2020-06-21 05:39] LABS: BUN Creatinine Ratio 30.8 (6-22); Blood Urea Nitrogen 20 mg/dL (7-17); Calcium 8.6 mg/dL (8.4-10.2); Carbon Dioxide 28 mmol/L (22-32); Chloride 102 mmol/L (98-107); Estimated Glomerular Filt Rate > 60.0 mL/min (>60); Glucose 112 mg/dL (80-110); HEMOLYSIS < 15 (0-50); Magnesium 2.1 mg/dL (1.6-2.3); Potassium 4.4 mmol/L (3.4-5.1); Sodium 133 mmol/L (137-145)
[2020-06-21] MEDS: DEXAMETHASONE 10 MG/ML VIAL 6 MG IV (08:09)
[2020-06-21] MEDS: guaiFENesin ER 600 MG TAB PO ×2 (08:09→20:03)
[2020-06-21] MEDS: FAMOTIDINE 20 MG TABLET PO (08:09)
[2020-06-21] MEDS: HEPARIN 5,000 UNIT/ML VIAL 5000 UNIT SUBCUT ×2 (08:09→20:04)
[2020-06-21] MEDS: SODIUM CHLORIDE 0.9% FLUSH 10 ML IV ×2 (08:10→20:06)
--- NOTE | 2020-06-21 10:40 | PC.NURSE ---
AM Shift Pt resting comfortably and reporting significant improvement to resp. effort with getting up to BSC , 40% and 40L Spo2 greater than 95, will reduce to 35L and monitor, Continue to encourage proning. Pt is tolerating for 1-2 hours at a time. up to chair for meals. Occasional coughing, but repeatedly letting staff know how 'improved I am finally feeling Continue working with RT to lower o2 as tolerated.
[2020-06-21] MEDS: REMDESIVIR 100 MG in SODIUM CHLORIDE 0.9% 230 ML 250 ML IV (14:01)
--- NOTE | 2020-06-21 15:37 | PC.NURSE ---
IV acces lost @ 1400, Dosing sari be delayed for IV meds. Pt cooperative with care, particular with care and requiring significant staff time to get things done right Weaning down from Heated high flow with RT, down to 35% and 35L at present.
--- NOTE | 2020-06-21 18:46 | P.PN_ITS ---
Subjective Subjective Date Patient Seen: 06/21/20 Time Patient Seen: 18:46 Interval history: The patient is a 69-year-old female admitted to the hospital with COVID-19 pneumonia and acute respiratory failure. Max oxygen use so far was initially the patient was on 60% FiO2 and 40 L. She has continued to improved today and is on minimal heated high-flow settings at 35% FiO2 and 30 L. Will try and transition this evening to regular high-flow nasal cannula this ev ening. She denies any new symptoms but had plenty of questions regarding COVID and isolation at home following her discharge. She did request a lab holiday tomorrow as she bruises quite easily. Her cough is improved, and she continues to deny any abdominal pain, nausea, vomiting, or diarrhea. Exam Vital Signs (past 8 hours): - 06/21/20 11:59 06/21/20 12:00 06/21/20 12:16 Temperature 98.4 F Pulse Rate 71 83 Respiratory Rate 16 16 Blood Pressure 122/69 Pulse Oximetry 93 94 92 06/21/20 16:00 Temperature Pulse Rate Respiratory Rate Blood Pressure Pulse Oximetry 94 Fraction of Inspired Oxygen 35 Oxygen Delivery Method Heated High Flow Oxygen Flow Rate 30 Narrative Exam Narrative: Gen: Pleasant female lying in bed, proned in no obvious distress Lungs: equal rise bilaterally, no respiratory disteress Cardiac exam: Regular rate and rhythm normal S1-S2 Abdomen: deferred given proned positioning. Grossly non-distended. Extremities: No edema, tenderness Objective Labs Result Diagrams: 06/18/20 04:55 06/21/20 04:40 Labs: Laboratory Results - last 24 hr 06/21/20 04:40 Sodium 133 L Potassium 4.4 Chloride 102 Carbon Dioxide 28 BUN 20 H Creatinine 0.65 Estimated GFR > 60.0 BUN/Creatinine Ratio 30.8 H Glucose 112 H Calcium 8.6 Magnesium 2.1 [facility] Medical History Sinusitis Surgical History (Updated 06/16/20 @ 21:59 by LUIZ Britt) History of rotator cuff surgery Family History (Updated 06/16/20 @ 22:00 by LUIZ Britt) Mother Congestive heart failure Diabetes mellitus Father Stroke Social History household members: spouse Smoking Status: Never smoker Assessment & Plan Assessment & Plan narrative: 69-year-old female admitted to the hospital with acute hypoxic respiratory failure secondary to COVID 19 pneumonia. 1. acute hypoxic respiratory failure secondary to COVID 19 pneumonia. -patient has [id number] pneumonia -chest x-ray confirms bilateral alveolar infiltrate -she has had progressive hypoxemia now on 35% and 30L, this is improved somewhat from 60% FiO2 and 40L at her worst. Will try and transition -despite this she is at very high risk for deterioration, should the patient require increasing oxygenation would consider a trial of BiPAP prior to intubation -previously the patient was using an albuterol inhaler to help with wheezing, no wheezing on exam. -patient currently on remdesivir and Decadron will continue standard treatment, will extend remdesevir to 10 days given mild improvement thus far. Today is day 6/. -she is receiving DVT prophylaxis. Troponin was checked and was negative for a run of NSVT. -will continue to monitor patient closely should the patient's D-dimer rise above 1000 would consider treatment doses Lovenox. D-dimer did downtrend today slightly. 2 hyponatremia likely related to her pulmonary infection -will defer IV hydration -will continue to monitor closely, now 134. 3. Elevated blood pressure without a diagnosis of hypertension - possibly related to anxiety and acute illness. Will continue to monitor, possibly start therapy if continues. Likely with beta che given NSVT. 4. Nonsustained ventricular tachycardia -overnight 06/17 on telemetry patient was noted to have a 10 beat run of ventricular tachycardia while sleeping. She was not symptomatic during the episode. Troponin was checked and was negative. Will continue telemetry. Potassium was 3.7 and was repleted, now improved. Code: Full Dispo: remains inpatient, likely will require extended stay until she is no longer hypoxic, this can sometimes take weeks in those receiving high flow supplemental oxygen.
[2020-06-21] MEDS: MELATONIN 3 MG TABLET 6 MG PO (20:04)
--- NOTE | 2020-06-21 22:21 | PC.NURSE ---
Shift note: Pt states she feels she is improving. Breath sounds clear, diminished in the bases, RT instructed pt in use of IS. Changed to Hiflo nasal cannula @ 8L. Sats 97%.
[2020-06-22] VITALS (11 sets, daily range): BP systolic 113–147; BP diastolic 56–68; PULSE 56–91; RESP 16–24; TEMP 36.4–36.8; O2SAT 90–97
[2020-06-22] MEDS: MAG HYDROX/ALUM/SIMETH 30 ML UDC PO (05:15)
--- NOTE | 2020-06-22 06:21 | PC.NURSE ---
Pt. on 8L high flow NC with sats in the high 90's, turned down to 5L at 0600 maintaining sats bet. 94-96%. Lungs decreased with few fine crackles on the right base, minimal dyspnea with activity. Afebrile, B/P stable, HR zulma in the 50's. Instructed pt. on using IS the right way and how often while awake. Pt. c/o epigastric pain rate of 5/10, pt. thinks is indigestion from salmon and brocolli she had for dinner, mylanta given which decrease pain down to 2 1/2. Voiding using the toilet with SBA. Cont. to monitor and treat.
[2020-06-22] MEDS: SODIUM CHLORIDE 0.9% FLUSH 10 ML IV (09:32)
[2020-06-22] MEDS: guaiFENesin ER 600 MG TAB PO (09:32)
[2020-06-22] MEDS: HEPARIN 5,000 UNIT/ML VIAL 5000 UNIT SUBCUT (09:32)
[2020-06-22] MEDS: DEXAMETHASONE 10 MG/ML VIAL 6 MG IV (09:32)
[2020-06-22] MEDS: FAMOTIDINE 20 MG TABLET PO (09:32)
--- NOTE | 2020-06-22 10:56 | PC.NURSE ---
Pt checked on and assessed. Neuro intact, denies pain. Pt received on 5 L HFNC. SPO2 95%, weaned to 4 L HFNC with no change in SPO2. Pt with RR 20, denies SOB at rest. Reports exertional dyspnea. Dr. Schulte weaned pt to RA, tolerating SPO2 90 or greater. Pt remains at 90-91% when at rest. VSS. Denies chest pain or chest pressure. Pt denies nausea. Tolerating diet. Pt is independent in toileting, voiding adequate volume. Will continue to monitor, notify MD with changes.
[2020-06-22] MEDS: REMDESIVIR 100 MG in SODIUM CHLORIDE 0.9% 230 ML 150 ML IV (13:03)
--- NOTE | 2020-06-22 14:36 | PM.DS.1 ---
History of Present Illness History of Present Illness Date Patient Seen: 06/22/20 Time Patient Seen: 14:36 Chief complaint: +Covid, sob Narrative: As per LEILA Britt: Patient is a 69-year-old female [place], who presented to ED with a chief complain of short of breath and feeling fatigued, who has no contributory medical history but tested positive for COVID on June 11, 2020. Patient denies chest pain, leg pain, abnormal swelling of hands or feet, changes in vision, weakness to 1 side of the body or other, balance or coordination issues, urinary or bowel issues, headache or diarrhea. Home O2 monitor as low as 78% and decided to return to ED with her who had tested positive as well. Patient has been nauseated and when she used Zofran it causes abdominal cramping discomfort. Patient was in ED on June 13 and discharged to home with Zofran at that time for nausea and abdominal cramping. Patient reports occasionally she has productive cough with thin mucus, decreased appetite, Patient reports her symptoms started 9 days ago without known exposure to COVID with and loss of taste and smell, fatigue, and nonproductive cough. Patient denies recent travel. PCP Dr. Smith. Patient's vitals in ED temp 101?, BP 121/59, HR 76, RR 26, 93% on 4 L nasal cannula. ABG: PH 7.49, pCO2 27.5, PO2 77, HC03 21, total CO2 22, base excess-2.0, FiO2 36. CRP 5.4, lactate 747, procalcitonin negative proBNP negative, D-dimer 382, ferritin 372, troponin negative AST 49, sodium 131. Chest x-ray: Bilateral interstitial infiltrate are seen-COVID pneumonia. EKG:Normal sinus rhythm rate at 84. Left dominant 86. MD interval 175, QRS duration 77, QT/QTC 369/[address] changes. Upon admission to the floor patient is resting comfortably in bed continues to complain of shortness of breath but has improved since the emergency room, frequent coughing and a generalized tightness in her chest. Patient denies fever, body aches, chills chest pain, irregular heart rate, rapid heart rate, chest pain, change in vision, no facial or extremity weakness, numbness or tingling, or calf pain. Patient will be admitted for COVID pneumonia. Discharge Providers Provider Date of admission: 06/16/20 15:09 Discharge Date: 06/22/20 Primary care physician: Theresa Smith MD Consults: 06/16/20 19:55 Consult to Discharge Planning Routine Comment: Consult to Physical Therapy Evaluate & Treat Comment: Physician Instructions: Evaluate and Treat 06/16/20 19:56 Consult to Occupational Therapy Evaluate & Treat Comment: Physician Instructions: Evaluate and treat 06/16/20 20:00 Consult to Respiratory Therapy Evaluate & Treat Comment: COVID pneumonia Physician Instructions: Evaluate and treat Discharge provider: Ángel Schulte DO Summary Hospital Course Discharge Diagnosis: 1. acute hypoxic respiratory failure, present on admission, resolved 2. COVID 19 pneumonia, acute, present on admission 3. hyponatremia, unknown chronicity, present on admission 4. Elevated blood pressure without a diagnosis of hypertension, improved 5. Nonsustained ventricular tachycardia, not present on admission, resolved Hospital Course: This was a 69-year-old female admitted to the hospital with acute hypoxemic respiratory failure secondary to COVID-19 pneumonia. She required heated high-flow nasal cannula, to a maximum of 60% FiO2 on 40 L at worst. She improved with Decadron and remdesivir therapy which were continued over the course of 7 days, the entirety of her admission. She did have a run of nonsustained ventricular tachycardia on telemetry, which was asymptomatic. Troponin and EKG were checked which were unremarkable. Echocardiogram was deferred given her COVID-19 status and lack of symptoms. She had mildly elevated blood pressures initially, which improved over the course of admission and with improvement in her symptoms. The last few days of her admission she improved quite quickly and was titrated off of heated high-flow to room air. See was discharged saturating between 92-93% on room air, even with activity. She had a mild chronic hyponatremia, which was asymptomatic, and possibly related to her COVID-19 infection. I recommended that she continue to stay isolated at home, and contact her primary care provider for a follow-up visit in the next few weeks via telehealth. Time Spent with Patient Time spent: Greater than 30 minutes Exam Vital Signs (past 8 hours): - 06/22/20 09:45 06/22/20 12:14 06/22/20 12:23 Temperature 97.5 F L Pulse Rate 74 78 Respiratory Rate 20 16 Blood Pressure 113/56 L Pulse Oximetry 95 92 90 L 06/22/20 13:00 Temperature 98.3 F Pulse Rate 91 H Respiratory Rate 24 Blood Pressure 119/67 Pulse Oximetry 90 L Fraction of Inspired Oxygen 0.21 Oxygen Delivery Method Room Air Oxygen Flow Rate 5 Narrative Exam Narrative: Gen: Pleasant female lying in bed, proned in no obvious distress Lungs: equal rise bilaterally, no respiratory disteress Cardiac exam: Regular rate and rhythm normal S1-S2 Abdomen: deferred given proned positioning. Grossly non-distended. Extremities: No edema, tenderness Objective Labs Result Diagrams: 06/18/20 04:55 06/21/20 04:40 [facility] Medical History Sinusitis Surgical History History of rotator cuff surgery Family History Mother Congestive heart failure Diabetes mellitus Father Stroke Social History household members: spouse Smoking Status: Never smoker Discharge Plan Discharge Plan Patient Disposition: Home Provider Discharge Comment: You were admitted to the hospital with COVID-19. You were treated with steroids and remdesevir during your admission. You were discharged once off of supplemental oxygen. Please try and schedule a tele-health visit your PMD sometime next week to check on symptoms. Discharge orders & Medications Prescriptions: Continued albuterol 1 puff inhalation PRN PRN (Reason: Shortness Of Breath) RF: 0 Follow up/Referrals: Theresa Smith MD [Primary Care Provider] - Diet/Activity/Treatments Diet: Diet as Tolerated Activity: As tolerated. Visit Report/Discharge Packet Instructions: DI for COVID-19 (Suspected or Confirmed ) Discharge Data Primary Care Provider: Theresa Smith
--- NOTE | 2020-06-22 15:03 | CM.DPC ---
DCP Discharge Home Per MD, pt has continued to stabilize and was able to transition to heated high flow to just NC 4L oxygen and then trialled on room air and tolerated with good oxygen sats so far. If pt remains stable then she can discharge home this evening. Plan: SW to follow for plan of d/c home this evening if she remains medically stable from COVID symptoms. KIMBERLY Castillo
--- NOTE | 2020-06-22 15:54 | PC.NURSE ---
Pt discharged per WC with [employer] attending. Discharge instructions given, Education re COVID-19, pneumonia and discharge medication.
--- NOTE | 2020-06-26 13:38 | CM.DPNOTE ---
Faxed clinicals to [facility] on 06/26/20 and received fax confirmation. Miriam Phillips CM Asst.
--- NOTE | 2020-06-26 14:23 | CM.DPNOTE ---
Email from Scar Franco alerted me to patient wish for a nurse to follow up on her and her . I called patient to hear what she needed and she said she wanted a nurse to stop by once or twice a week to take her vitals. She declined any decrease in health status, but stated she was just worried because she still felt so poorly... again declined worsening symptoms. The hospitalist that did her discharge from will not be returning for a couple weeks, and current hospitalist could not sign F2F form since he never met patient. I called pts. PCP to see if they would be willing to sign a F2F until she can have office follow up, but her - Theresa Smith- is no longer with the practice. I explained the patients wishes/concerns to the [facility] staff and she was going to request a physician to consider a virtual appointment to assess for appropriate follow up. I just received email message from patient that [facility] MD will perform a tele-appointment next Wednesday to meet patient and move forward with any indentified needs. Patient seems happy with this current plan.
== END 2020-06-22 15:52 | disposition home or self-care (01) | DRG 177 ==
LOC: ED 15:03 → AC 15:10 → ICU 15:40 → AC 06-17 15:12 → ICU 06-17 15:12
PROVIDERS: Internal Medicine; Nurse Practitioner Adult Health; Nurse Practitioner Family; Admitting Provider Internal Medicine; Emergency Provider Nurse Practitioner Family; PCP Internal Medicine; Referring Provider Nurse Practitioner Family; Visit Provider Internal Medicine
DX: U07.1 COVID-19 (principal); J12.89 Other viral pneumonia; J96.01 Acute respiratory failure with hypoxia; E87.1 Hypo-osmolality and hyponatremia; I47.2 Ventricular tachycardia; R03.0 Elevated blood-pressure reading, without diagnosis of hypertension
CPT/HCPCS: 36415; 36600; 71045; 80048; 80053; 80074; 82550; 82728; 82805; 83605; 83615; 83735; 83880; 84145; 84484; 85025; 85379; 85610; 85730; 86140; 87040; 87205; 87389; 87633; 93005; 94150; 94640; 94762; 96365; 96372; 96375; 99281; 99284; 99285; A9270; J1100; J1644; J1650; J2405; J2765; J3480

== ENCOUNTER → 2020-07-23 19:40 | Outpatient (ROUT) | payer MEDICARE, OTHER, SELFPAY ==
[2020-06-16 17:07] VITALS: BMI 28.3
[2020-07-23 20:01] LABS: Add Manual Diff / Slide Review NO; Basophils Absolute Auto 100 /uL (0-100); Basophils Percent Auto 0.9 % (0-2); Eosinophils Absolute Auto 100 /uL (0-450); Eosinophils Percent Auto 1.9 % (2-4); Hematocrit 40.8 % (36-46); Hemoglobin 13.3 g/dL (12.0-16.0); Lymphocytes Absolute Auto 1200 /uL (1100-4500); Lymphocytes Percent Auto 16.2 % (25-40); Mean Corpuscular HGB Conc 32.7 % (30-36); Mean Corpuscular Hemoglobin 31.1 PG (26-34); Mean Corpuscular Volume 95.2 fL (80-100); Monocytes Absolute Auto 700 /uL (0-900); Monocytes Percent Auto 9.8 % (3-14); Neutrophils Absolute Auto 5100 /uL (1500-7000); Neutrophils Percent Auto 71.2 % (50-75); Platelet Count 394 X10^3/uL (150-400); Red Blood Cell Count 4.29 X10^6/uL (4.0-5.2); Red Cell Distribution Width 14.8 % (11.6-14.8); White Blood Cell Count 7.2 X10^3/uL (4.5-11.0)
[2020-07-23 20:12] LABS: BUN Creatinine Ratio 26.5 (6-22); Blood Urea Nitrogen 22 mg/dL (7-17); Calcium 9.7 mg/dL (8.4-10.2); Carbon Dioxide 31 mmol/L (22-32); Chloride 103 mmol/L (98-107); Estimated Glomerular Filt Rate > 60.0 mL/min (>60); Glucose 89 mg/dL (80-110); HEMOLYSIS < 15 (0-50); Potassium 4.2 mmol/L (3.4-5.1); Sodium 135 mmol/L (137-145)
[2020-07-23 20:41] LABS: TSH w/ Reflex to FT4 2.07 uIU/mL (0.47-4.68)
== END ==
PROVIDERS: PCP Internal Medicine; Visit Provider Internal Medicine
DX: I47.2 Ventricular tachycardia (principal); J12.82 Pneumonia due to coronavirus disease 2019
CPT/HCPCS: 80048; 83735; 84443; 85025

== ENCOUNTER → 2020-07-29 13:31 | Outpatient (CLI) | payer MEDICARE, OTHER, SELFPAY ==
[2020-06-16 17:07] VITALS: BMI 28.3
--- NOTE | 2020-08-21 11:18 | P.HOLT.S_ITS ---
Translator And Interpreter Report Referral & Results Date Patient Seen: 07/29/20 Requesting provider: Coy Garza Indication: Ventricular tachycardia Duration of monitoring (days): 11 Diary information: Therefore patient triggered events and 5 patient diary entries Although these patient events were associated with (within 45 seconds) sinus rhythm and PVCs Data: Minimum heart rate identified was 61 beats per minute at 11:49 on 08/01/2020 Maximum sinus heart rate was 140 beats per minute at 12:20 on 07/31/2020 Maximum overall heart rate was 154 beats per minute at 10:42 on 07/31/2020 during a run of SVT Less than 1% of identified beats rather ventricular supraventricular ectopic in origin There is only 1 run of SVT that was 8 beats in duration at a rate of 154 beats per minute. Second-degree AV block type 1 or Wenckebach block was also present Impression: Patient with rare PVCs and PACs and a single episode brief SVT as above No ventricular tachycardia noted on this study Clinical correlation suggested
== END ==
PROVIDERS: PCP Internal Medicine; Referring Provider Internal Medicine; Visit Provider Internal Medicine
DX: I47.2 Ventricular tachycardia (principal)
CPT/HCPCS: 93246; 93248

== ENCOUNTER → 2020-08-13 07:50 | Outpatient (CLI) | payer MEDICARE, OTHER, SELFPAY ==
[2020-06-16 17:07] VITALS: BMI 28.3
--- NOTE | 2020-08-13 07:53 | DI.ECHO.S_ITS ---
[place] [facility] +---------+ Hospital +---------+ : : [address] : : : : [id number] : : : : Phone: [phone]+ Echocardiogram Report + + :Name: MARIO OJEDA Study Date: 08/13/2020 Height: 63 in : :[facility] ReadingLocation: Weight: 165 lb : : Gender: Female BSA: 1.8 m2 : :: 1950 Age: 70 yrs BP: 135/99 mmHg: :Reason For Study: VENTRICULAR TACHYCARDIA : :Ordering Physician: TESSIE, : :CORI Performed By: Shanika Pineda : :Referring: CORI KURTZ : + + Interpretation Summary 1) Normal left ventricular thickness, size with low normal systolic function (EF 50-55%). 2) Normal right ventricular size and function. 3) No significant valvular abnormalities. 4) Hypertension present during the study (BP 135/99mmHg). 5) No prior Echo available for comparison. Procedure: A two-dimensional transthoracic echocardiogram with color flow and Doppler was performed. The study quality was technically adequate. There is no prior echocardiogram noted for this patient. The heart rate ranged between 78-91 bpm during the study. Left Ventricle: The left ventricle is normal in size and wall thickness. The ejection fraction is estimated to be 50-55%. There are no obvious focal wall motion abnormalities noted but poor endocardial definition reduces the sensitivity for the detection of such. Right Ventricle: The right ventricle is normal in size and function. Atria: The left atrial size is normal. Right atrial size is normal. There is no Doppler evidence for an interatrial shunt. Mitral Valve: The mitral valve is normal in structure and function. There is mild mitral regurgitation. Aortic Valve: The aortic valve is trileaflet. The aortic valve opens well. There is no aortic valve stenosis. No aortic regurgitation is present. Tricuspid Valve: The tricuspid valve is normal in structure and function. No tricuspid regurgitation. Pulmonary artery pressures cannot be estimated because of the lack of a measurable TR jet velocity but the IVC suggests a CVP of around 3 mmHg. Pulmonic Valve: The pulmonic valve is not well seen, but is grossly normal. There is trace pulmonic regurgitation. Great Vessels: The aortic root is normal size. The ascending aorta is at the upper limits of normal in size. The IVC is of normal diameter and collapses greater than 50% with a sniff. This suggests a low right atrial pressure of 3 mm Hg. Pericardium/ Pleura There is no pericardial effusion. There is no pleural effusion. MMode/2D Measurements & Calculations LVIDd: 4.1 cm LVOT diam: 2.0 cm LVIDs: 3.0 cm Ao root diam: 3.2 cm FS: 26.8 % asc Aorta Diam: 3.5 cm EPSS: 0.56 cm Ao Arch Diam (Prox Trans): 2.6 cm IVSd: 0.83 cm LVPWd: 0.70 cm LV garzon. diameter/BSA (cm/m^2): 2.3 LV sys. diameter/BSA (cm/m^2): 1.7 LA A2 area: 19.3 cm2 RA long axis: 4.5 cm LA A4 area: 15.2 cm2 RA area: 12.6 cm2 LA length (vol): 4.4 cm RA vol: 30.3 ml LA vol: 56.6 ml RA : 17.0 ml/m2 LA vol index: 31.8 ml/m2 IVC diam: 0.87 cm RVD1 (basal): 2.7 cm TAPSE: 2.2 cm Doppler Measurements & Calculations Ao V2 max: 122.8 cm/sec LVOT Max David: 80.9 cm/sec Ao V2 mean: 79.1 cm/sec LV V1 max P.6 mmHg Ao max P.0 mmHg LV V1 VTI: 17.5 cm Ao mean P.9 mmHg CLYDE(I,D): 2.3 cm2 Ao V2 VTI: 23.9 cm CLYDE(V,D): 2.0 cm2 sev ratio: 0.73 CLYDE indexed to BSA (cm^2/m^2): 1.3 MV E max david: 97.4 cm/sec PA V2 max: 56.9 cm/sec MV A max david: 1.2 cm/sec PA V2 mean: 39.2 cm/sec MV E/A: 80.0 PA mean P.69 mmHg Med Peak E' David: 13.3 cm/sec PA pr(Accel): 32.8 mmHg E/E' med: 7.3 Lat Peak E' David: 9.3 cm/sec E/E' lat: 10.5 E/e' average: 8.9 MV dec time: 0.12 sec SV(LVOT): 54.3 ml Reading Physician:09:13 AM
== END ==
PROVIDERS: PCP Internal Medicine; Referring Provider Internal Medicine; Visit Provider Internal Medicine
DX: I34.0 Nonrheumatic mitral (valve) insufficiency (principal); I47.2 Ventricular tachycardia
CPT/HCPCS: 93306

== ENCOUNTER 2021-03-16 12:30 | Emergency (ER) | payer MEDICARE, OTHER, SELFPAY ==
[2020-06-16 17:07] VITALS: BMI 28.3
[2021-03-16 12:36] VITALS: BP 147/80; PULSE 101; RESP 14; TEMP 36.4; O2SAT 97; BMI 29.2
--- NOTE | 2021-03-16 12:53 | DI.RAD.S_ITS ---
PROCEDURE: XR ELBOW LT MIN 3V INDICATIONS: fall TECHNIQUE: 3 views of the elbow were acquired. COMPARISON: None. FINDINGS: Bones: Comminuted fracture of the proximal ulnar metaphysis without displacement is present. Second fracture involving the lateral aspect of the head of the radius with depressed fracture fragment noted. Soft tissues: Associated dorsal soft tissue swelling. No radiopaque foreign body. Joint effusion elevates the anterior humeral fat pad IMPRESSION: 1. Comminuted proximal ulnar metaphyseal fracture. 2. Depressed radial head fracture 3. Joint effusion Approved by: Kevin Summers M.D. on 03/16/2021 at 13:58
--- NOTE | 2021-03-16 12:53 | ED.UPPEXIN ---
HPI - Extremity Injury (Upper) General Chief Complaint: Extremity Injury, Upper Stated Complaint: GLF Time Seen by Provider: 03/16/21 12:39 Source: EMS Mode of arrival: Ambulatory Limitations: no limitations History of Present Illness HPI narrative: Patient is a 70-year-old female who presents with left elbow pain started today She states that she was getting onto her but when she slipped and fell landing directly on her elbow. She did hit her head but no loss of consciousness. She is not on any anti-platelet or anticoagulation medication. She has no neck pain or other injuries at this time. Other able to take the boat [place] over to [place] in company emergency department. Related Data Home Medications Medication Instructions Recorded Confirmed albuterol 1 puff INHALATION PRN PRN 06/16/20 06/16/20 Previous Rx's Medication Instructions Recorded hydrocodone 5 mg-acetaminophen 325 1 tab PO Q6H PRN #10 tab 03/16/21 mg tablet Allergies Allergy/AdvReac Type Severity Reaction Status Date / Time codeine Allergy Verified 06/16/20 13:33 Review of Systems Review of Systems Narrative: GENERAL: Denies chills,fever HEENT: Denies throat pain RESPIRATORY: Denies dyspnea, cough, wheezing CARDIOVASCULAR: Denies chest pain, palpitations GASTROINTESTINAL: Denies nausea, vomiting MUSCULOSKELETAL: See HPI SKIN: No rash, no laceration, no pruritus NEUROLOGIC: Denies weakness, dizziness, headache, numbness 8 point review of systems is negative except for those stated above and HPI Patient History Medical History Sinusitis Surgical History History of rotator cuff surgery Family History Mother Congestive heart failure Diabetes mellitus Father Stroke Social History household members: spouse Smoking Status: Never smoker Smoking Status: Never smoker alcohol intake frequency: 0-2 drinks per day Substance Use Type: does not use Exam Initial Vital Signs Initial Vital Signs: Vital Signs Temperature 97.6 F 03/16/21 12:36 Pulse Rate 101 H 03/16/21 12:36 Respiratory Rate 14 03/16/21 12:36 Blood Pressure 147/80 H 03/16/21 12:36 Pulse Oximetry 97 03/16/21 12:36 GENERAL: Alert well-appearing 70-year-old female NECK: Tenderness no step-offs full range of motion CARDIOVASCULAR: peripheral pulses in tact, cap refill <2 sec RESPIRATORY: No respiratory distress, speaks in full sentences without difficulty EXTREMITIES: Normal range of motion, no clubbing or edema. Neurovascularly intact Left upper extremity no shoulder tenderness no clavicle step-off tender in the olecranon area. At wrist distal radial pulse intact moving fingers exam radial median and ulnar nerves intact NEUROLOGICAL: Cranial nerves II through XII grossly intact. Normal gait and speech. SKIN: Warm, dry, no petechiae, no rashes or lesions. Procedures Orthopedic Splinting/Casting Injury #1: Upper Extremity Injury Location: elbow Upper Extremity Immobilizer: sling/shoulder immobilizer and posterior splint Post splinting neuro exam: intact Post splinting vascular exam: intact Placed by: Nursing Course Orders Ordered: ED Orders 03/16/21 12:53 XR elbow LT min 3V Stat XR wrist LT min 3V Stat 03/16/21 13:57 CT UE LT wo con Stat Discontinued Medications Hydrocodone Bitart/Acetaminophen (Hydrocodone/Acet 5/325 Tablet) 2 tab PO NOW ONE Stop: 03/16/21 13:58 Last Admin: 03/16/21 14:05 Dose: 2 tab Documented by: DIMAS Vital Signs Vital signs: Vital Signs - 8 hr 03/16/21 12:36 03/16/21 15:10 Temperature 97.6 F Pulse Rate 101 H 90 Respiratory Rate 14 Blood Pressure 147/80 H 134/61 Pulse Oximetry 97 95 MDM - Extremity Injury (Upper) Imaging Data Extremity x-ray #1: Radiologist's Impression: PROCEDURE:? XR ELBOW LT MIN 3V ? INDICATIONS:? fall ? TECHNIQUE:? 3 views of the elbow were acquired.? ? COMPARISON:? None. ? FINDINGS:? ? Bones:? Comminuted fracture of the proximal ulnar metaphysis without displacement is present.? Second fracture involving the lateral aspect of the head of the radius with depressed fracture fragment noted. ? Soft tissues:? Associated dorsal soft tissue swelling.? No radiopaque foreign body.? Joint effusion elevates the anterior humeral fat pad ? ? IMPRESSION:? ? 1. Comminuted proximal ulnar metaphyseal fracture. 2. Depressed radial head fracture 3. Joint effusion? Approved by: Kevin Summers M.D. on 03/16/2021 at 13:58? Extremity x-ray #2: Radiologist's Impression: PROCEDURE:? XR WRIST LT MIN 3V ? INDICATIONS: fall ? TECHNIQUE:? 4 views of the wrist were acquired.? ? COMPARISON:? None. ? FINDINGS:? ? Bones:? No fractures or dislocations.? No suspicious bony lesions.? Old ununited ulnar styloid fracture noted. Generalized decrease in osseous mineralization noted.? First carpometacarpal joint space narrowing and subchondral sclerosis.? ? Scaphoid view:? Unremarkable ? Soft tissues:? No suspicious soft tissue calcifications.? ? IMPRESSION:? Osteopenia and degenerative changes without acute fracture or foreign body ? Approved by: Kevin Summers M.D. on 03/16/2021 at 13:57? CT UE: Radiologist's Impression: PROCEDURE:? Left elbow CT without contrast ? INDICATIONS:? Trauma, pain ? TECHNIQUE:? Noncontrast 1-1.5 mm axial sections were acquired through the elbow joint, with coronal and sagittal reformats.? ? COMPARISON:? None. ? FINDINGS:? ? Comminuted nondisplaced proximal ulnar fracture involves the ulnar metaphysis extending up to the coronoid process.? The articular surface is minimally involved.? No dislocation ? Vertical fracture through the anterior lateral radial head is present with slight distraction, and no depression. ? Dorsal soft tissue swelling present without radiopaque foreign body.? Joint effusion elevates the anterior humeral fat pad.? Normal bone mineralization present throughout. ? IMPRESSION:? ? 1. Slightly distracted vertical intra-articular fracture through the anterior lateral radial head without depression. ? 2. Comminuted nondisplaced proximal ulnar fracture extends to the coronoid process also minimally involves the articular surface.? ? 3. Small joint effusion and moderate dorsal soft tissue swelling.? ? ? Approved by: Kevin Summers M.D. on 03/16/2021 at 14:13? [facility] Narrative Medical decision making narrative: Patient is found have ulnar fracture without significant displacement. CT also shows a radial head fracture. who has been notified recommend patient be splinted and have outpatient follow-up. Discharge Plan Departure Patient Disposition: Home Clinical Impression: Closed fracture of proximal end of left radius and ulna Qualifiers: Encounter type: initial encounter Qualified Code(s): S52.002A - Unspecified fracture of upper end of left ulna, initial encounter for closed fracture Instructions: DI for Elbow Fracture Activity Restrictions/Additional Instructions: *You have been diagnosed with left elbow fracture *What to do: At this time keep arm in splint at all times. Wear sling at all times as well or distal active. It is possible that you may require surgery. *Continue to take medications as directed Dewart 1 tablet every 6 hours if needed for pain--> SENT TO [facility] *Follow up with your primary care provider in 2-3 days Call orthopedics tomorrow to schedule follow-up appointment *Return to ER if you should have increasing pain, numbness, tingling, inability to fingers or any new, worsening or concerning symptoms CONTROLLED SUBSTANCE DISCHARGE (Narcotoic/benzodiazepine/Flexeril/Phenergan) 1. You have been prescribed narcotic medications, it does have acetaminophen/Tylenol/paracetamol in it, DO NOT TAKE MORE THAN 4,00mg in 24 hours of Tylenol. TRAMADOL DOES NOT CONTAIN TYLENOL 2. Please understand that we cannot provide further refills of narcotics, benzodiazepines or controlled substances through the ED and her pain management will need to be through your provider. 3. While on these medications you cannot drive or operate heavy machinery. 4. You cannot sign legal documents or perform any duties such as this. 5. As long as you're taking opiate pain medications he should also be taking a stool softener such as Colace, Dulcolax, MiraLAX or prune juice, to help avoid constipation. Prescriptions: New hydrocodone-acetaminophen 5-325 mg tablet 1 tab PO Q6H PRN (Reason: pain) Qty: 10 RF: 0 No Action albuterol 1 puff inhalation PRN PRN (Reason: Shortness Of Breath) RF: 0 Referrals: [facility] [Provider Group] Coy Garza MD [Primary Care Provider] -
--- NOTE | 2021-03-16 12:53 | DI.RAD.S_ITS ---
PROCEDURE: XR WRIST LT MIN 3V INDICATIONS: fall TECHNIQUE: 4 views of the wrist were acquired. COMPARISON: None. FINDINGS: Bones: No fractures or dislocations. No suspicious bony lesions. Old ununited ulnar styloid fracture noted. Generalized decrease in osseous mineralization noted. First carpometacarpal joint space narrowing and subchondral sclerosis. Scaphoid view: Unremarkable Soft tissues: No suspicious soft tissue calcifications. IMPRESSION: Osteopenia and degenerative changes without acute fracture or foreign body Approved by: Kevin Summers M.D. on 03/16/2021 at 13:57
--- NOTE | 2021-03-16 13:57 | DI.CT.S_ITS ---
PROCEDURE: Left elbow CT without contrast INDICATIONS: Trauma, pain TECHNIQUE: Noncontrast 1-1.5 mm axial sections were acquired through the elbow joint, with coronal and sagittal reformats. COMPARISON: None. FINDINGS: Comminuted nondisplaced proximal ulnar fracture involves the ulnar metaphysis extending up to the coronoid process. The articular surface is minimally involved. No dislocation Vertical fracture through the anterior lateral radial head is present with slight distraction, and no depression. Dorsal soft tissue swelling present without radiopaque foreign body. Joint effusion elevates the anterior humeral fat pad. Normal bone mineralization present throughout. IMPRESSION: 1. Slightly distracted vertical intra-articular fracture through the anterior lateral radial head without depression. 2. Comminuted nondisplaced proximal ulnar fracture extends to the coronoid process also minimally involves the articular surface. 3. Small joint effusion and moderate dorsal soft tissue swelling. Approved by: Kevin Summers M.D. on 03/16/2021 at 14:13
[2021-03-16] MEDS: HYDROCODONE/ACET 5/325 TABLET 2 TAB PO (14:05)
[2021-03-16 15:10] VITALS: BP 134/61; PULSE 90; O2SAT 95
== END 2021-03-16 16:10 | disposition home or self-care (01) ==
PROVIDERS: Emergency Provider Emergency Medicine; PCP Internal Medicine
DX: S52.002A Unspecified fracture of upper end of left ulna, initial encounter for closed fracture (principal); W01.0XXA Fall on same level from slipping, tripping and stumbling without subsequent striking against object, initial encounter
CPT/HCPCS: 29105; 73080; 73110; 73200; 99284

== ENCOUNTER → 2021-04-15 12:48 | Outpatient (CLI) | payer MEDICARE, OTHER, SELFPAY ==
[2020-06-16 17:07] VITALS: BMI 28.3
--- NOTE | 2021-04-15 | DI.CT.S_ITS ---
PROCEDURE: CT UE LT WO CON INDICATIONS: Nondisplaced comminuted fracture of shaft of ulna, TECHNIQUE: Noncontrast 1 mm axial sections acquired through the carpal bones, with coronal and sagittal reformats. COMPARISON: [facility], CR, XR ELBOW 1 OR 2 VIEWS LEFT, 04/01/2021, 11:41. [facility], CT, CT UE LT WO CON, 03/16/2021, 14:13. [facility], CR, XR ELBOW 1 OR 2 VIEWS LEFT, 04/15/2021, 11:28. FINDINGS: Image quality: Excellent. Bones: Previously identified anterolateral radial head fracture extending to the joint space with displacement of fracture fragment is again noted. There appears to be mild increased diastasis of the fracture fragment measuring approximately 3 mm on current exam compared to 1 mm on 03/16/2021. There is a mildly displaced, comminuted fracture of the proximal ulna extending to the metaphysis and coronoid process. Fracture lucency does extend to the articular surface. Alignment is relatively unchanged. Soft tissues: Effusion has reduced compared to prior exam. There remains subcutaneous edema. IMPRESSION: 1. Proximal radial head fracture with slight increased diastasis between fracture fragments. 2. Proximal ulna fracture extending to the metaphysis as well as the articular surface appearing stable in alignment compared to prior exam. Dictated by: Charline Lopez M.D. on 04/15/2021 at 13:24 Approved by: Charline Lopez M.D. on 04/15/2021 at 13:36
== END ==
PROVIDERS: PCP Internal Medicine; Referring Provider Orthopaedic Surgery Orthopaedic Surgery of the Spine; Visit Provider Orthopaedic Surgery Orthopaedic Surgery of the Spine
DX: S52.122A Displaced fracture of head of left radius, initial encounter for closed fracture (principal); S52.002A Unspecified fracture of upper end of left ulna, initial encounter for closed fracture; X58.XXXA Exposure to other specified factors, initial encounter
CPT/HCPCS: 73200

== ENCOUNTER → 2021-09-09 11:24 | Outpatient (CLI) | payer MEDICARE, OTHER, SELFPAY ==
[2020-06-16 17:07] VITALS: BMI 28.3
--- NOTE | 2021-09-09 | DI.CT.S_ITS ---
PROCEDURE: CT UE LT WO CON INDICATIONS: Pain in left elbow post fracture in March 2021 TECHNIQUE: Noncontrast 1-1.5 mm axial sections were acquired through the elbow joint, with coronal and sagittal reformats. COMPARISON: [facility], CT, CT UE LT WO CON, 04/15/2021, 13:05. FINDINGS: Image quality: Excellent. Bones: Comminuted fracture involving anterior and lateral aspect of radial head is seen with fracture line extending to its articulation with capitellum. There is a anterior and lateral displacement of fractured fragment and up to 6 mm diastasis at fracture site. No bony union is seen. Well corticated margin at fracture site is noted suggestive of nonunion. There is also a comminuted fracture involving proximal ulnar shaft with anterior displacement at fracture site and up to 6 mm diastasis. Well corticated margin along fracture site is seen without bony fusion suggestive of nonunion. Osteoarthritic changes are noted in elbow joints. No new fracture or dislocation is seen. No suspicious intraosseous lesion. Soft tissues: There is moderate elbow joint effusion. small calcified fragment adjacent to lateral aspect of elbow joint are seen and may represent displaced fracture fragments versus intra-articular loose body. No full-thickness biceps or triceps tendon rupture. Common extensor and flexor tendon origins are grossly intact. IMPRESSION: 1. Comminuted fractures involving radial head and proximal ulnar shafts with displacement at fracture site. Corticated margin along fracture sites without bony fusion suggestive of nonunion. 2. No acute fracture or dislocation. No suspicious intraosseous lesion. Moderate elbow joint effusion. 3. Moderate joint effusion with possible small calcified intra-articular loose bodies versus displaced fractured fragments. Dictated by: Taco Owens M.D. on 09/09/2021 at 14:22 Approved by: Taco Owens M.D. on 09/09/2021 at 14:45
== END ==
PROVIDERS: PCP Internal Medicine; Referring Provider Orthopaedic Surgery Orthopaedic Surgery of the Spine; Visit Provider Orthopaedic Surgery Orthopaedic Surgery of the Spine
DX: S52.122G Displaced fracture of head of left radius, subsequent encounter for closed fracture with delayed healing (principal); S52.252 Displaced comminuted fracture of shaft of ulna, left arm; M25.522 Pain in left elbow; X58.XXXD Exposure to other specified factors, subsequent encounter
CPT/HCPCS: 73200

== ENCOUNTER → 2021-09-09 11:28 | Outpatient (CLI) | payer MEDICARE, OTHER, SELFPAY ==
[2020-06-16 17:07] VITALS: BMI 28.3
--- NOTE | 2021-09-09 | DI.MG.S_ITS ---
BILATERAL DIGITAL SCREENING MAMMOGRAM 3D/2D WITH CAD: 09/09/2021 CLINICAL: Routine screening. Comparison is made to exams dated: 05/23/2020 mammogram, 10/19/2019 mammogram, 03/16/2019 mammogram, and 01/27/2018 mammogram - outside location. There are scattered fibroglandular elements in both breasts. Current study was also evaluated with a Computer Aided Detection (CAD) system. No significant masses, calcifications, or other findings are seen in either breast. There has been no significant interval change. IMPRESSION: NEGATIVE There is no mammographic evidence of malignancy. A 1 year screening mammogram is recommended. This exam was interpreted at Station ID: [id number]. NOTE: For mammograms, a report in lay terms will be sent to the patient. Approximately 15% of breast malignancies will not be visualized mammographically. In the management of a palpable breast mass, a negative mammogram must not discourage biopsy of a clinically suspicious lesion. Electronically Signed By: Tod estrella/kaylene:09/09/2021 14:11:14 letter sent: Normal Exam ACR BI-RADS Category 1: Negative 3341F
== END ==
PROVIDERS: PCP Internal Medicine; Referring Provider Internal Medicine; Visit Provider Internal Medicine
DX: Z12.31 Encounter for screening mammogram for malignant neoplasm of breast (principal)
CPT/HCPCS: 77063; 77067

== ENCOUNTER → 2022-05-21 12:41 | Outpatient (CLI) | payer MEDICARE, OTHER, SELFPAY ==
[2020-06-16 17:07] VITALS: BMI 28.3
[2022-05-21 13:49] LABS: COVID-19 CEPHEID 4-PLEX PCR Negative (Negative); Influenza A - CEPHEID Flu A POSITIVE (NEGATIVE); Influenza B - CEPHEID Flu B NEGATIVE (NEGATIVE); Respiratory Syncytial Virus Negative (Negative)
== END ==
PROVIDERS: Visit Provider Nurse Practitioner Family
DX: R05.9 Cough, unspecified (principal); Z20.822 Contact with and (suspected) exposure to COVID-19
CPT/HCPCS: 0241U

== ENCOUNTER → 2022-09-24 08:04 | Outpatient (CLI) | payer MEDICARE, OTHER, SELFPAY ==
[2020-06-16 17:07] VITALS: BMI 28.3
--- NOTE | 2022-09-24 | DI.MG.S_ITS ---
BILATERAL DIGITAL SCREENING MAMMOGRAM 3D/2D WITH CAD: 09/24/2022 CLINICAL: Routine screening. Comparison is made to exams dated: 09/09/2021 mammogram - [facility], 05/23/2020 mammogram, and 03/16/2019 mammogram - outside location. There are scattered areas of fibroglandular density in both breasts (category b / 25%-50% glandular tissue). Current study was also evaluated with a Computer Aided Detection (CAD) system. No significant masses, calcifications, or other findings are seen in either breast. There has been no significant interval change. IMPRESSION: NEGATIVE There is no mammographic evidence of malignancy. A 1 year screening mammogram is recommended. Based on the Tyrer Cuzick model (a risk assessment model) the patient's lifetime risk is 3.3% and her 10 year risk is 2.7%. According to the ACR, ACS, and NCCN guidelines, an annual breast MRI exam along with mammogram is recommended if the patient's lifetime risk is 20% or greater. This exam was interpreted at Station ID: [id number]. NOTE: For mammograms, a report in lay terms will be sent to the patient. Approximately 15% of breast malignancies will not be visualized mammographically. In the management of a palpable breast mass, a negative mammogram must not discourage biopsy of a clinically suspicious lesion. Electronically Signed By: Shailesh knigth/kaylene:09/24/2022 08:34:08 letter sent: Normal Exam ACR BI-RADS Category 1: Negative 3341F
== END ==
PROVIDERS: Referring Provider Internal Medicine; Visit Provider Internal Medicine
DX: Z12.31 Encounter for screening mammogram for malignant neoplasm of breast (principal)
CPT/HCPCS: 77063; 77067

== ENCOUNTER → 2022-10-26 10:40 | Outpatient (CLI) | payer MEDICARE, OTHER, SELFPAY ==
[2020-06-16 17:07] VITALS: BMI 28.3
--- NOTE | 2022-10-26 10:49 | DI.DEXA.S_ITS ---
Bone Density Report Name: MARIO OJEDA Age: 72 Sex: Female Ethnicity: White Date of : 1950 Indication: postmenopausal; screening for osteoporosis; Referring Provider: THOMAS NEWBERRY Study: Bone densitometry was performed. Exam Date: October 26, 2022 Accession number: [id number] Bone Density: Region BMD T-score Z-score Classification AP Spine(L1-L4) 0.894 -1.4 0.9 Osteopenia Femoral Neck (Left) 0.580 -2.4 -0.4 Osteopenia Total Hip (Left) 0.761 -1.5 0.2 Osteopenia Femoral Neck (Right) 0.610 -2.1 -0.2 Osteopenia Total Hip (Right) 0.793 -1.2 0.5 Osteopenia Total Hip Mean 0.777 -1.4 0.4 Osteopenia World Health Organization criteria for BMD impression classify patients as: Normal (T-score at or above -1.0), Osteopenia (T-score between -1.0 and -2.5), or Osteoporosis (T-score at or below -2.5). 10-year Fracture Risk(1): Major Osteoporotic Fracture 14% Hip Fracture 3.8% Reported Risk Factors: [place] (), Neck BMD=0.580, BMI=30.1 (1) FRAX(R) Version 3.08. Fracture probability calculated for an untreated patient. Fracture probability may be lower if the patient has received treatment. Impression: The patient has low bone mass, based on the Left Femoral Neck T-score. The patient has an estimated ten-year risk of hip fracture of 3.8% and an estimated ten-year risk of major fracture of 14%, based on the WHO FRAX algorithm. Discussion: BONE DENSITY IS LOW AT ONE OR MORE SKELETAL SITES. THE PATIENT'S BMD AND CLINICAL RISK FACTORS CONTRIBUTE TO THIS PATIENT'S INCREASED RISK OF FRACTURE. This patient's lowest T-score is low at one or more skeletal sites. It meets the World Health Organization's (WHO) criteria for ?low bone mass? (T-score between -1.0 and -2.5). The patient's 10-year risk of hip fracture as calculated by FRAX exceeds the threshold where pharmacological therapy is recommended by the National Osteoporosis Foundation (NOF). However, all treatment decisions require clinical judgment and consideration of individual patient factors, including patient preferences, comorbidities, previous drug use, risk factors not captured in the FRAX model (e.g., frailty, falls, vitamin D deficiency, increased bone turnover, interval significant decline in bone density) and possible under or overestimation of fracture risk by FRAX. The patient should follow a healthful lifestyle (good nutrition with adequate calcium and vitamin D, and appropriate weight-bearing exercise). Follow-Up: Consider a repeat BMD and Vertebral Fracture Assessment (VFA) exam in 2 years or sooner if medically necessary, to reassess this patient's status. Reported by: SAL MONTEZ MD on 10/26/2022 10:57:00 AM.
== END ==
PROVIDERS: PCP Internal Medicine; Referring Provider Internal Medicine; Visit Provider Internal Medicine
DX: Z78.0 Asymptomatic menopausal state (principal); Z13.820 Encounter for screening for osteoporosis; M85.852 Other specified disorders of bone density and structure, left thigh
CPT/HCPCS: 77080

== ENCOUNTER → 2023-10-25 09:14 | Outpatient (CLI) | payer MEDICARE, OTHER, SELFPAY ==
[2020-06-16 17:07] VITALS: BMI 28.3
--- NOTE | 2023-10-25 | DI.MG.S_ITS ---
BILATERAL DIGITAL SCREENING MAMMOGRAM 3D/2D WITH CAD: 10/25/2023 CLINICAL: Routine screening. Comparison is made to exams dated: 09/24/2022 mammogram, 09/09/2021 mammogram - [facility], and 05/23/2020 mammogram - outside location. There are scattered areas of fibroglandular density in both breasts (category b / 25%-50% glandular tissue). Current study was also evaluated with a Computer Aided Detection (CAD) system. No significant masses, calcifications, or other findings are seen in either breast. There has been no significant interval change. IMPRESSION: NEGATIVE There is no mammographic evidence of malignancy. A 1 year screening mammogram is recommended. Based on the Tyrer Cuzick model (a risk assessment model) the patient's lifetime risk is 3.1% and her 10 year risk is 2.8%. According to the ACR, ACS, and NCCN guidelines, an annual breast MRI exam along with mammogram is recommended if the patient's lifetime risk is 20% or greater. This exam was interpreted at Station ID: [id number]. NOTE: For mammograms, a report in lay terms will be sent to the patient. Approximately 15% of breast malignancies will not be visualized mammographically. In the management of a palpable breast mass, a negative mammogram must not discourage biopsy of a clinically suspicious lesion. Electronically Signed By: Shailesh knight/kaylene:10/25/2023 12:32:32 letter sent: Normal Exam ACR BI-RADS Category 1: Negative 3341F
== END ==
PROVIDERS: PCP Internal Medicine; Referring Provider Internal Medicine; Visit Provider Internal Medicine
DX: Z12.31 Encounter for screening mammogram for malignant neoplasm of breast (principal); R92.323 Mammographic fibroglandular density, bilateral breasts
CPT/HCPCS: 77063; 77067

== ENCOUNTER → 2024-03-07 | Outpatient (CLI) | payer MEDICARE, OTHER, SELFPAY ==
[2020-06-16 17:07] VITALS: BMI 28.3
--- NOTE | 2024-03-07 12:02 | DI.RAD.S_ITS ---
PROCEDURE: XR CHEST 2V INDICATIONS: Chest pain on breathing TECHNIQUE: 2 views of the chest were acquired. COMPARISON: [facility], CR, XR CHEST 1V, 06/16/2020, 13:30. FINDINGS: Surgical changes and devices: None. Lungs and pleura: Lungs are clear. No pleural effusions or pneumothorax. Mediastinum: Mediastinal contours are normal. Heart size is normal. Bones and chest wall: No suspicious bony abnormalities. Soft tissues appear unremarkable. IMPRESSION: No acute cardiopulmonary abnormality is seen. Dictated by: Marilyn Fajardo M.D. on 03/09/2024 at 16:18 Approved by: Marilyn Fajardo M.D. on 03/09/2024 at 16:19
== END ==
PROVIDERS: PCP Internal Medicine; Referring Provider Internal Medicine; Visit Provider Internal Medicine
DX: R07.1 Chest pain on breathing (principal)
CPT/HCPCS: 71046

== ENCOUNTER 2024-03-14 08:46 | Emergency (ER) | payer MEDICARE, OTHER, SELFPAY ==
[2020-06-16 17:07] VITALS: BMI 28.3
[2024-03-14] VITALS (16 sets, daily range): BP systolic 118–156; BP diastolic 67–84; PULSE 81–99; RESP 12–24; TEMP 36.8; O2SAT 92–99; BMI 29.2
--- NOTE | 2024-03-14 08:59 | DI.RAD.S_ITS ---
PROCEDURE: XR CHEST 1V INDICATIONS: chest pain TECHNIQUE: One view of the chest was acquired. COMPARISON: [facility], CR, XR CHEST 2V, 03/07/2024, 12:01. [facility], CR, XR CHEST 1V, 06/16/2020, 13:30. FINDINGS: Surgical changes and devices: None. Lungs and pleura: Lungs are clear. No pleural effusions or pneumothorax. Mediastinum: Mediastinal contours appear normal. Heart size is normal. Bones and chest wall: No suspicious bony lesions. Overlying soft tissues appear unremarkable. IMPRESSION: No acute cardiopulmonary disease process. Dictated by: Kaci Francis MD, PhD on 03/14/2024 at 9:19 Approved by: Kaci Francis MD, PhD on 03/14/2024 at 9:22
--- NOTE | 2024-03-14 09:06 | EKG_ITS ---
[place] [id number] [place] [id number] Test Date: 2024-03-14 Pat Name: Bonnie Vale Department: Room: Gender: Female [employer] Worker: TAYLA : 1950 Requested By: Order Number: [id number] Reading MD: Sarath Goldsmith MD Measurements Intervals [place] Rate: 88 P: 36 FL: 212 QRS: -6 QRSD: 74 T: 44 QT: 376 QTc: 454 Interpretive Statements Sinus rhythm with 1st degree AV block Minimal voltage criteria for LVH, may be normal variant ( R in aVL ) Electronically Signed On 03-14-2024 12:05:51 PDT by Sarath Goldsmith MD
--- NOTE | 2024-03-14 09:10 | ED.CHESTPAIN ---
HPI - Chest Pain General Chief Complaint: Chest Pain Stated Complaint: Mild chest pain Time Seen by Provider: 03/14/24 09:10 Source: patient Mode of arrival: Ambulatory Limitations: no limitations History of Present Illness HPI narrative: Patient is a 73-year-old female with past medical history of hyperlipidemia, asthma comes into the ED from home for evaluation of chest pain. States it has been ongoing and intermittent for the past 2 weeks, she states that she did noticed this after she was picking up a large box, states that she is physically active, works out on a daily basis, states that it is worse whenever she does move or works out, describes it as an ache, denies any pleuritic symptoms not on any blood thinners, denies any trauma or falls, Related Data Home Medications Medication Instructions Recorded Confirmed albuterol sulfate 90 mcg/actuation 2 inh inhalation Q4-6H PRN 04/30/23 04/30/23 breath activated powder inhaler atorvastatin 10 mg tablet 10 mg PO BEDTIME 04/30/23 04/30/23 fluticasone propionate 50 1 spray intranasal DAILY 04/30/23 04/30/23 mcg/actuation nasal spray,suspension (Flonase Allergy Relief) irbesartan 75 mg tablet (Avapro) 75 mg PO DAILY 04/30/23 04/30/23 Previous Rx's Medication Instructions Recorded fluticasone 250 mcg-salmeterol 50 1 inh inhalation BID #60 ea 04/30/23 mcg/dose blistr powdr for inhalation montelukast 10 mg tablet 10 mg PO BEDTIME #30 tabs 04/30/23 (Singulair) Allergies Allergy/AdvReac Type Severity Reaction Status Date / Time No Known Drug Allergies Allergy Unverified 04/30/23 09:10 Review of Systems Review of Systems Narrative: HEENT: Denies headache, eye drainage, eye irritation, head trauma, sore throat, voice change Cardiovascular: Positive chest pain, Denies palpitations, shortness of breath, tachycardia Respiratory: Denies any shortness of breath, cough, wheeze, stridor GI/: Denies any abdominal pain, nausea, vomiting, diarrhea, bright red blood per rectum, melanotic stools, urinary frequency, urinary retention, dysuria, hematuria MSK: Denies any joint pain, muscle pains, swelling Skin: Denies any rashes, lesions, discoloration Neuro: Denies any headache, lightheadedness, dizziness, fainting, weakness Psych: Denies SI/HI Patient History Medical History Sinusitis Surgical History History of rotator cuff surgery Family History Mother Congestive heart failure Diabetes mellitus Father Stroke Social History household members: spouse Smoking Status: Never smoker Smoking Status: Never smoker alcohol intake frequency: 0-2 drinks per day Substance Use Type: does not use Exam Narrative Exam Narrative: General: Cooperative, comfortable, well-developed, not in acute distress HEENT: Normocephalic, atraumatic, PERRLA, normal sclera, eyelids normal, Neck: Active full range of motion, atraumatic Chest: Normal to inspection, negative crepitus, no overlying erythema ecchymosis, reproducible chest pain on palpation to the right overlying erythema ecchymosis Respiratory: Normal respiratory effort, not in acute respiratory distress, clear to auscultation bilaterally negative cough, wheeze, tachypnea, rhonchi, rales Cardiology: Regular rate rhythm negative gallop, murmur, rubs GI/: Normal to inspection, soft, nonrigid, no tenderness to palpation, exam deferred MSK: Full range of active range of motion of all 4 extremities, atraumatic Skin: No rashes lesions noted Neuro: Alert awake oriented x3, moves all 4 extremities spontaneously, cranial nerves intact, able to answer all questions appropriately follows commands appropriately Psych: Cooperative, negative suicidal or homicidal ideations Initial Vital Signs Initial Vital Signs: Vital Signs Pulse Rate 98 H 03/14/24 08:54 Respiratory Rate 15 03/14/24 08:54 Pulse Oximetry 92 03/14/24 08:54 Scores HEART Score Heart Score history: Moderately Suspicious Heart Score EKG: Non-Specific repolarization disturbance Heart Score Age: > or = 65 years old Heart Score risk factors: 1-2 risk factors Heart Score troponin: < or = to normal limit Heart Score Total: 5 Course Orders Ordered: ED Orders 03/14/24 08:59 XR chest 1V Stat EKG-12 Lead Stat 03/14/24 09:00 Complete Blood Count AUTO DIFF Stat Comprehensive Metabolic Panel Stat Lipase Stat Magnesium Stat NT-proBNP (BNP-Adult 18+) Stat PTT Partial Thromboplastin Mark Stat Prothrombin Time INR Stat Troponin & CK Cardiac Panel Stat 03/14/24 11:02 Trop I [Troponin I] Stat 03/14/24 13:06 Consult to Hospitalist Service Stat Discontinued Medications Aspirin (Aspirin 81 Mg Chew Tab) 324 mg PO NOW ONE Stop: 03/14/24 09:00 Last Admin: 03/14/24 10:04 Dose: 324 mg Documented By: RB Vital Signs Vital signs: Vital Signs - 8 hr 03/14/24 08:54 03/14/24 08:55 03/14/24 08:55 Temperature Pulse Rate 98 H 95 H Respiratory Rate 15 13 Blood Pressure 150/73 H Pulse Oximetry 92 99 Oxygen Delivery Method 03/14/24 08:59 03/14/24 09:00 03/14/24 09:07 Temperature 98.3 F Pulse Rate 99 H 94 H Respiratory Rate 14 21 Blood Pressure 150/73 H 156/84 H Pulse Oximetry 99 97 Oxygen Delivery Method Room Air 03/14/24 09:07 03/14/24 09:30 03/14/24 09:30 Temperature Pulse Rate 90 81 Respiratory Rate 18 14 Blood Pressure 140/73 Pulse Oximetry 97 94 Oxygen Delivery Method 03/14/24 10:00 03/14/24 10:00 03/14/24 11:00 Temperature Pulse Rate 83 87 Respiratory Rate 12 24 Blood Pressure 118/67 Pulse Oximetry 94 94 Oxygen Delivery Method 03/14/24 11:00 03/14/24 11:31 03/14/24 11:33 Temperature Pulse Rate 86 86 Respiratory Rate Blood Pressure 124/69 Pulse Oximetry 97 Oxygen Delivery Method 03/14/24 11:33 03/14/24 12:00 03/14/24 12:00 Temperature Pulse Rate 81 Respiratory Rate Blood Pressure 122/82 129/67 Pulse Oximetry 95 Oxygen Delivery Method 03/14/24 12:30 03/14/24 12:30 03/14/24 13:00 Temperature Pulse Rate 85 86 Respiratory Rate Blood Pressure 142/68 H Pulse Oximetry 95 94 Oxygen Delivery Method Room Air 03/14/24 13:00 03/14/24 13:30 03/14/24 14:00 Temperature Pulse Rate 87 84 Respiratory Rate Blood Pressure 129/71 Pulse Oximetry 95 94 Oxygen Delivery Method MDM - Chest Pain Differential Diagnosis Differential diagnosis: Likely pneumothorax, atypical chest pain, st elevation myocardial infarction, costochondritis and chest pain Lab Data 03/14/24 09:00 03/14/24 09:00 Labs: Lab Results 03/14/24 03/14/24 Range/Units 09:00 11:02 WBC 7.4 (4.5-11.0) X10^3/uL RBC 4.25 (4.0-5.2) X10^6/uL Hgb 13.4 (12.0-16.0) g/dL Hct 38.8 (36-46) % MCV 91.3 (80-100) fL MCH 31.5 (26-34) PG MCHC 34.5 (30-36) % RDW 13.8 (11.6-14.8) % Plt Count 291 (150-400) X10^3/uL Neut % (Auto) 74.3 (50-75) % Lymph % (Auto) 15.4 L (25-40) % [place] % (Auto) 7.0 (3-14) % Eos % (Auto) 2.9 (2-4) % Baso % (Auto) 0.4 (0-2) % Neut # (Auto) 5500 (0771-9784) /uL Lymph # (Auto) 1100 (9086-2339) /uL [place] # (Auto) 500 (0-900) /uL Eos # (Auto) 200 (0-450) /uL Baso # (Auto) 0 (0-100) /uL PT 10.4 (9.4-12.5) SECONDS INR 0.9 (0.9-1.3) APTT 40 H (25.1-36.5) SECONDS Sodium 133 L (137-145) mmol/L Potassium 4.4 (3.4-5.1) mmol/L Chloride 104 (98-107) mmol/L Carbon Dioxide 22 (22-32) mmol/L BUN 22 H (7-17) mg/dL Creatinine 0.89 (0.52-1.04) mg/dL Estimated GFR > 60 (>60) mL/min BUN/Creatinine Ratio 24.7 H (6-22) Glucose 92 (80-110) mg/dL Calcium 9.7 (8.4-10.2) mg/dL Magnesium 2.1 (1.6-2.3) mg/dL Total Bilirubin 0.7 (0.2-1.3) mg/dL AST 32 (14-36) IU/L ALT 23 (<35) IU/L Alkaline Phosphatase 124 (38-126) U/L Total Creatine Kinase 58 (30-135) U/L Troponin I 0.018 < 0.012 (0.01-0.034) ng/mL NT-Pro-B Natriuret Pep 37 (<125) pg/mL Total Protein 7.1 (6.3-8.2) g/dL Albumin 4.3 (3.5-5.0) g/dL Globulin 2.8 (1.7-4.1) g/dL Albumin/Globulin Ratio 1.5 (1.0-2.8) Lipase 150 (23-300) U/L ABG Data Interpretation: ROCEDURE: XR CHEST 1V INDICATIONS: chest pain TECHNIQUE: One view of the chest was acquired. COMPARISON: [facility], CR, XR CHEST 2V, 03/07/2024, 12:01. [facility], CR, XR CHEST 1V, 06/16/2020, 13:30. FINDINGS: Surgical changes and devices: None. Lungs and pleura: Lungs are clear. No pleural effusions or pneumothorax. Mediastinum: Mediastinal contours appear normal. Heart size is normal. Bones and chest wall: No suspicious bony lesions. Overlying soft tissues appear unremarkable. IMPRESSION: No acute cardiopulmonary disease process. ECG Data Attestation: I personally reviewed and interpreted this ECG as follows: Interpretation: EKG interpreted ED physician sinus at 88 beats per minute QTC 454 left axis deviation nonspecific ST changes no STEMI. MDM Narrative Medical decision making narrative: Patient presented for 2 weeks of chest pain after carrying heavy box reproducible on exam, states that it is worsened whenever she does her daily exercises. Most likely patient experiencing costochondritis Lab work without elevated troponin x2. Heart score= 5 patient was seen by hospitalist Dr. white in consult risks benefits was performed with the patient and decision was made to have patient have cardiac follow up in an outpatient setting. Patient was given strict return precautions understands agrees with the plan safe for discharge home with outpatient follow up Discharge Plan Departure Patient Disposition: Home Clinical Impression: Chest pain Activity Restrictions/Additional Instructions: Please follow-up with cardiology and primary care Please read the discharge instructions sheet carefully and bring all papers to all doctor follow-up visits, as it may contain information that your doctor may want to see. Disease processes change and evolve, if your symptoms worsen or if you develop any new symptoms that are concerning to you please return for evaluation. Your evaluation today does not show any evidence of any life-threatening/serious illnesses requiring admission to the hospital or surgery. Please follow-up with your doctor for re-evaluation in approximately 1 day. Seek immediate medical attention for any worrisome symptoms. Prescriptions: No Action atorvastatin 10 mg tablet 10 mg PO BEDTIME irbesartan [Avapro] 75 mg tablet 75 mg PO DAILY albuterol sulfate 90 mcg/actuation aerosol powdr breath activated 2 inh inhalation Q4-6H PRN fluticasone propionate [Flonase Allergy Relief] 50 mcg/actuation spray,suspension 1 spray intranasal DAILY Rx Instructions: administer into each nostril montelukast [Singulair] 10 mg tablet 10 mg PO BEDTIME Qty: 30 2RF fluticasone propion-salmeterol 250-50 mcg/dose blister with device 1 inh inhalation BID Qty: 60 2RF Rx Instructions: rinse mouth with water, gargle and spit after each use; try GoodRx if no prescription coverage Referrals: Marcell Owens MD [Physician] - Karen Redd MD [Primary Care Provider] - Stand Alone Forms: Patient Portal/API
[2024-03-14 09:15] LABS: Add Manual Diff / Slide Review NO; Basophils Absolute Auto 0 /uL (0-100); Basophils Percent Auto 0.4 % (0-2); Eosinophils Absolute Auto 200 /uL (0-450); Eosinophils Percent Auto 2.9 % (2-4); Hematocrit 38.8 % (36-46); Hemoglobin 13.4 g/dL (12.0-16.0); Lymphocytes Absolute Auto 1100 /uL (1100-4500); Lymphocytes Percent Auto 15.4 % (25-40); Mean Corpuscular HGB Conc 34.5 % (30-36); Mean Corpuscular Hemoglobin 31.5 PG (26-34); Mean Corpuscular Volume 91.3 fL (80-100); Monocytes Absolute Auto 500 /uL (0-900); Neutrophils Absolute Auto 5500 /uL (1500-7000); Neutrophils Percent Auto 74.3 % (50-75); Platelet Count 291 X10^3/uL (150-400); Red Blood Cell Count 4.25 X10^6/uL (4.0-5.2); Red Cell Distribution Width 13.8 % (11.6-14.8); White Blood Cell Count 7.4 X10^3/uL (4.5-11.0)
[2024-03-14 09:21] LABS: INR 0.9 (0.9-1.3); Prothrombin Time 10.4 SECONDS (9.4-12.5)
[2024-03-14 09:23] LABS: PTT Partial Thromboplastin Tim 40 SECONDS (25.1-36.5)
[2024-03-14 09:43] LABS: Alanine Aminotransferase 23 IU/L (<35); Albumin 4.3 g/dL (3.5-5.0); Albumin Globulin Ratio 1.5 (1.0-2.8); Alkaline Phosphatase 124 U/L (38-126); Aspartate Aminotransferase 32 IU/L (14-36); BUN Creatinine Ratio 24.7 (6-22); Bilirubin Total 0.7 mg/dL (0.2-1.3); Blood Urea Nitrogen 22 mg/dL (7-17); Calcium 9.7 mg/dL (8.4-10.2); Carbon Dioxide 22 mmol/L (22-32); Chloride 104 mmol/L (98-107); Creatine Kinase 58 U/L (30-135); Estimated Glomerular Filt Rate > 60 mL/min (>60); Globulin 2.8 g/dL (1.7-4.1); Glucose 92 mg/dL (80-110); Lipase 150 U/L (23-300); Sodium 133 mmol/L (137-145); Total Protein 7.1 g/dL (6.3-8.2)
[2024-03-14 09:45] LABS: HEMOLYSIS 78 (0-50); Magnesium 2.1 mg/dL (1.6-2.3); Potassium 4.4 mmol/L (3.4-5.1)
[2024-03-14 09:54] LABS: NT-proBNP (BNP-Adult 18+) 37 pg/mL (<125); Troponin I 0.018 ng/mL (0.01-0.034)
[2024-03-14] MEDS: ASPIRIN 81 MG CHEW TAB 324 MG PO (10:04)
[2024-03-14 11:34] LABS: Troponin I < 0.012 ng/mL (0.01-0.034)
--- NOTE | 2024-03-14 15:04 | PM.CN ---
History of Present Illness Consult details Date Patient Seen: 03/14/24 Time Patient Seen: 13:30 Chief complaint: Mild chest pain Reason for consult: chest pain Requesting provider: Ángel Feliciano Narrative: 73 F with PMH of HTN, HLD presents with 3 weeks of R sided chest pain, worse with movement. Pain is right sided, and started after a box she was carrying fell. Pain is worse with movement, alleviated with ibuprofen. She can feel a specific point that hurts on her left right wall. There is some associated R breast pain. She denies nausea, vomiting, diaphoresis. She denies fevers. EKG showed NSR without evidence of acute ischemia. After discussion with patient, HEART score 3-4, patient was recommended for discharge home with PCP follow up. Meds Home Medications and Allergies Home Medications Medication Instructions Recorded Confirmed Type albuterol sulfate 90 mcg/actuation 2 inh inhalation Q4-6H PRN 04/30/23 04/30/23 History breath activated powder inhaler atorvastatin 10 mg tablet 10 mg PO BEDTIME 04/30/23 04/30/23 History fluticasone 250 mcg-salmeterol 50 1 inh inhalation BID #60 ea 04/30/23 04/30/23 Rx mcg/dose blistr powdr for inhalation fluticasone propionate 50 1 spray intranasal DAILY 04/30/23 04/30/23 History mcg/actuation nasal spray,suspension (Flonase Allergy Relief) irbesartan 75 mg tablet (Avapro) 75 mg PO DAILY 04/30/23 04/30/23 History montelukast 10 mg tablet 10 mg PO BEDTIME #30 tabs 04/30/23 04/30/23 Rx (Singulair) Allergies Allergy/AdvReac Type Severity Reaction Status Date / Time No Known Drug Allergies Allergy Unverified 04/30/23 09:10 Review of Systems Review of Systems Narrative: All other systems reviewed with the patient and are negative unless otherwise stated. Exam Vital Signs (past 8 hours): - 03/14/24 08:54 03/14/24 08:55 03/14/24 08:55 Temperature Pulse Rate 98 H 95 H Respiratory Rate 15 13 Blood Pressure 150/73 H Pulse Oximetry 92 99 Oxygen Delivery Method 03/14/24 08:59 03/14/24 09:00 03/14/24 09:07 Temperature 98.3 F Pulse Rate 99 H 94 H Respiratory Rate 14 21 Blood Pressure 150/73 H 156/84 H Pulse Oximetry 99 97 Oxygen Delivery Method Room Air 03/14/24 09:07 03/14/24 09:30 03/14/24 09:30 Temperature Pulse Rate 90 81 Respiratory Rate 18 14 Blood Pressure 140/73 Pulse Oximetry 97 94 Oxygen Delivery Method 03/14/24 10:00 03/14/24 10:00 03/14/24 11:00 Temperature Pulse Rate 83 87 Respiratory Rate 12 24 Blood Pressure 118/67 Pulse Oximetry 94 94 Oxygen Delivery Method 03/14/24 11:00 03/14/24 11:31 03/14/24 11:33 Temperature Pulse Rate 86 86 Respiratory Rate Blood Pressure 124/69 Pulse Oximetry 97 Oxygen Delivery Method 03/14/24 11:33 03/14/24 12:00 03/14/24 12:00 Temperature Pulse Rate 81 Respiratory Rate Blood Pressure 122/82 129/67 Pulse Oximetry 95 Oxygen Delivery Method 03/14/24 12:30 03/14/24 12:30 03/14/24 13:00 Temperature Pulse Rate 85 86 Respiratory Rate Blood Pressure 142/68 H Pulse Oximetry 95 94 Oxygen Delivery Method Room Air 03/14/24 13:00 03/14/24 13:30 03/14/24 14:00 Temperature Pulse Rate 87 84 Respiratory Rate Blood Pressure 129/71 Pulse Oximetry 95 94 Oxygen Delivery Method 03/14/24 14:19 Temperature Pulse Rate 87 Respiratory Rate Blood Pressure 119/67 Pulse Oximetry 95 Oxygen Delivery Method Room Air Oxygen Delivery Method Room Air Narrative Exam Narrative: Gen: no acute distress CV: RRR, R chest wall tenderness Abd: S ND Ext: no edema Objective ECG Impression: Normal sinus rhythm without evidence of acute ischemia Imaging Chest x-ray: My impression: Unremarkable radiograph of the chest, no rib fractures, pulmonary infiltrates, nor cardiomegaly. Labs 03/14/24 09:00 03/14/24 09:00 Labs: Laboratory Results - last 24 hr 03/14/24 03/14/24 09:00 11:02 WBC 7.4 RBC 4.25 Hgb 13.4 Hct 38.8 MCV 91.3 MCH 31.5 MCHC 34.5 RDW 13.8 Plt Count 291 Neut % (Auto) 74.3 Lymph % (Auto) 15.4 L [place] % (Auto) 7.0 Eos % (Auto) 2.9 Baso % (Auto) 0.4 Neut # (Auto) 5500 Lymph # (Auto) 1100 [place] # (Auto) 500 Eos # (Auto) 200 Baso # (Auto) 0 PT 10.4 INR 0.9 APTT 40 H Sodium 133 L Potassium 4.4 Chloride 104 Carbon Dioxide 22 BUN 22 H Creatinine 0.89 Estimated GFR > 60 BUN/Creatinine Ratio 24.7 H Glucose 92 Calcium 9.7 Magnesium 2.1 Total Bilirubin 0.7 AST 32 ALT 23 Alkaline Phosphatase 124 Total Creatine Kinase 58 Troponin I 0.018 < 0.012 NT-Pro-B Natriuret Pep 37 Total Protein 7.1 Albumin 4.3 Globulin 2.8 Albumin/Globulin Ratio 1.5 Lipase 150 PFSH Medical History Sinusitis Surgical History History of rotator cuff surgery Family History Mother Congestive heart failure Diabetes mellitus Father Stroke Social History household members: spouse Tobacco & Substance Use Smoking Status: Never smoker Assessment & Plan Assessment & Plan narrative: 1. Chest pain / costochondritis - history is highly consistent with musculoskeletal chest pain. Recommended trial of NSAID therapy and chest wall exercises for costochondritis. - troponins negative. EKG is unremarkable. Heart score is low to intermediate risk (elevated due to age, risk factors) but given history and after discussion with patient she elected for outpatient evaluation if no improvement with the above measures. ACS is considered ruled out at this time. - no medication changes recommended on discharge. 2. Chronic conditions - HTN, HLD, moderate persistent asthma without exacerbation. Code: Full, surrogate is patient's spouse I have utilized all available immediate resources to obtain, update, or review the patient's current medications. Dispo: Discharge home with outpatient evaluation recommended. Additional history obtained via discussions with the ER provider. These discussions contributed to the creation of the above assessment and plan. I have reviewed patient's presenting documentation, labs, and imaging personally. Time-Based Coding :: [TOTAL MINUTES] spent with patient and on the chart (including review of chart, obtaining history, exam, reviewing outside data, placing orders, documenting exam and treatment plan, and counseling patient) on [DATE].
== END 2024-03-14 14:19 | disposition home or self-care (01) ==
PROVIDERS: Emergency Provider Student in an Organized Health Care Education/Training Program; PCP Internal Medicine
DX: R07.9 Chest pain, unspecified (principal); I44.0 Atrioventricular block, first degree
CPT/HCPCS: 36415; 71045; 80053; 82550; 83690; 83735; 83880; 84484; 85025; 85610; 85730; 93005; 93010; 99284

== ENCOUNTER → 2024-10-30 08:19 | Outpatient (CLI) | payer MEDICARE, OTHER, SELFPAY ==
[2020-06-16 17:07] VITALS: BMI 28.3
--- NOTE | 2024-10-30 08:20 | DI.MG.S_ITS ---
MM screening mammo BI: 10/30/2024. BI-RADS: 1 CLINICAL: 74-year old female for bilateral screening mammogram. Tyrer-Cuzick lifetime risk of 2.1%. No personal or first-degree family history of breast cancer. PRIOR EXAMS 10/25/2023, 09/24/2022, 09/09/2021. MAMMOGRAPHY TECHNIQUE: 2D and 3D (tomosynthesis) digital mammographic views obtained, with additional images as needed for full coverage. Current study was also evaluated with a Computer Aided Detection (CAD) system. DENSITY B. There are scattered areas of fibroglandular density. MAMMOGRAPHY FINDINGS Bilateral: No suspicious mass, asymmetry, microcalcification, or other abnormality seen. IMPRESSION: * No evidence of malignancy. RECOMMENDATIONS Bilateral * Annual screening mammography. OVERALL ASSESSMENT CATEGORY BI-RADS-1: Negative. The [employer] recommends annual screening mammography beginning at age 40 for women with average risk of breast cancer. ELECTRONICALLY SIGNED: Terence Ureña M.D. on 10/30/2024 at 05:28:32 PM PT Interpreting Station ID: [id number]
== END ==
PROVIDERS: PCP Internal Medicine; Referring Provider Internal Medicine; Visit Provider Internal Medicine
DX: Z12.31 Encounter for screening mammogram for malignant neoplasm of breast (principal)
CPT/HCPCS: 77063; 77067

== ENCOUNTER → 2025-05-02 14:41 | Outpatient (CLI) | payer MEDICARE, OTHER, SELFPAY ==
[2020-06-16 17:07] VITALS: BMI 28.3
--- NOTE | 2025-05-02 14:45 | DI.RAD.S_ITS ---
PROCEDURE: XR CHEST 2V INDICATIONS: Cough TECHNIQUE: 2 views of the chest were acquired. COMPARISON: [facility], , XR CHEST 1V, 03/14/2024, 9:03. FINDINGS: Surgical changes and devices: None. Lungs and pleura: Lungs demonstrate diffuse coarsening of the interstitial markings, chronic. No focal consolidation, effusion, or pneumothorax. Mediastinum: Mediastinal contours are normal. Heart size is normal. Bones and chest wall: No suspicious bony abnormalities. Multilevel degenerative disc and endplate changes throughout the spine. Soft tissues appear unremarkable. IMPRESSION: No acute cardiopulmonary abnormality is seen. Chronic coarsening of interstitial markings may reflect emphysema or senescent changes. Dictated by: Heena Steward M.D. on 05/04/2025 at 22:55 Approved by: Heena Steward M.D. on 05/04/2025 at 22:56
== END ==
LOC: RAD 14:43
PROVIDERS: PCP Internal Medicine; Referring Provider Internal Medicine; Visit Provider Internal Medicine
DX: R05.9 Cough, unspecified (principal)
CPT/HCPCS: 71046